=== PATIENT | female | born 1985 | race Caucasian/White ===

== ENCOUNTER → 2023-10-16 14:07 | Outpatient (REF) | payer OTHER, SELFPAY | LOC: HWRAD 14:07 | PROVIDERS: ATTENDING PHYSICIAN Internal Medicine Hematology & Oncology; FAMILY PHYSICIAN Family Medicine | DX: C50.312 Malignant neoplasm of lower-inner quadrant of left female breast (principal); L27.0 Generalized skin eruption due to drugs and medicaments taken internally; K52.1 Toxic gastroenteritis and colitis; R53.83 Other fatigue; C77.3 Secondary and unspecified malignant neoplasm of axilla and upper limb lymph nodes; I48.91 Unspecified atrial fibrillation; G47.00 Insomnia, unspecified | CPT/HCPCS: 77080 ==

== ENCOUNTER → 2024-01-25 07:11 | Outpatient (REF) | payer OTHER, SELFPAY ==
[2024-01-25] VITALS (15 sets, daily range): BP systolic 76–129; BP diastolic 66–97
[2024-01-25 07:46] LABS: INR 1.01; PT 13.8 Sec (11.4-14.6)
[2024-01-25] MEDS: TORADOL 15 MG IV (09:15)
== END ==
LOC: RADI 07:11
PROVIDERS: ATTENDING PHYSICIAN Internal Medicine Hematology & Oncology; REFERRING PHYSICIAN Physician Assistant
DX: C78.7 Secondary malignant neoplasm of liver and intrahepatic bile duct (principal); C50.312 Malignant neoplasm of lower-inner quadrant of left female breast; Z01.812 Encounter for preprocedural laboratory examination; Z01.818 Encounter for other preprocedural examination
CPT/HCPCS: 88307; 36415; 47000; 76942; 85610; 88333; 88334; 88341; 88342; 88360; 99152; 99153

== ENCOUNTER 2024-02-11 18:35 | Emergency (ER) | payer OTHER, SELFPAY ==
[2024-02-11 18:45] VITALS: BP 120/78
[2024-02-11 19:23] LABS: % Basophils 0.6 % (0-2); % Eosinophils 0.4 % (0-6); % Immature Granulocytes 0.4 % (0-0.5); % Monocytes 8.8 % (1.7-9.3); % Neutrophils 76.8 % (42.2-75.2); Absolute Basophils 0.1 10^3/uL (0-0.2); Absolute Lymphocytes 1.4 10^3/uL (1.2-3.4); Absolute Monocytes 0.9 10^3/uL (0.1-0.6); Absolute Neutrophils 8.2 10^3/uL (1.4-6.5); Hemoglobin 10.1 g/dL (12.0-16.0); Mean Corp Hgb Conc. 32.6 g/dL (33.0-37.0); Mean Corpuscular Hgb 28.6 pg (27.0-31.0); Mean Corpuscular Volume 87.8 fL (81.0-99.0); Mean Platelet Volume 10.6 fL (7.4-10.4); Nucleated Red Blood Cells % 0 %; Platelet Count 353 10^3/uL (130-400); Red Blood Cell Count 3.53 10^6/uL (4.20-5.40); Red Cell Dist. Width 12.4 % (11.5-14.5); White Blood Cell Count 10.7 10^3/uL (4.8-10.8)
[2024-02-11 19:26] LABS: Urine Albumin Trace (Neg - Trace); Urine Bilirubin Negative (Negative); Urine Character Clear (Clear); Urine Color Yellow; Urine Glucose Negative (Negative); Urine Ketone 3+ (Negative); Urine Leukocyte Trace (Negative); Urine Nitrite Negative (Negative); Urine Occult Blood Trace (Negative); Urine Urobilinogen Negative (Neg - 1+)
[2024-02-11 19:34] LABS: Lactic Acid 0.8 mmol/L (0.7-2.0)
[2024-02-11 19:35] LABS: ALT (SGPT) 117 U/L (0-35); AST (SGOT) 145 U/L (14-36); Albumin 3.6 g/dl (3.5-5.0); Alkaline Phosphatase 377 U/L (38-126); Blood Urea Nitrogen 13 mg/dl (7-17); Calcium 9.2 mg/dl (8.4-10.2); Carbon Dioxide 25 mmol/L (22-30); Chloride 96 mmol/L (98-107); Glucose 199 mg/dl (70-99); Potassium 3.7 mmol/L (3.5-5.1); Sodium 132 mmol/L (135-145); Total Bilirubin 0.8 mg/dl (0.2-1.3); Total Protein 6.4 g/dl (6.3-8.2); eGFR > 60.00
[2024-02-11 19:36] LABS: Urine Mucus Moderate
[2024-02-11 19:37] LABS: Urine Bacteria Few (Negative); Urine Red Blood Cell 0-2 /HPF (0-2); Urine White Cell 0-2 /HPF (0-5)
[2024-02-11 19:49] LABS: COVID-19 Antigen Negative (Negative)
--- NOTE | 2024-02-12 17:13 | ED.ADDNOTE ---
Addendum entered and electronically signed by Mayte Howell PA-C 02/12/24 19:44:
Patient called back at1 1943 PM
She says she no longer has a fever and she feels well. She saw her oncologist earlier today. At that point the blood culture result was not back yet.
Patient would like to stay home tonight and reach out to her oncologist. She does have access to her oncologist also number and may call her. I did send a [place] text to Dr. Acosta relaying this information. She was encouraged to return to the
ER for at least repeat exam since she was not examined previously, especially if her fever returns. Patient says since it is a holiday she will call her doctor tomorrow or go to [facility] to have her blood cultures redrawn. Perhaps is
contaminant.
Original Note:
ED Addendum
ED Addendum
ED Addendum Note:
Patient left without treatment. She had blood cultures that were positive and she is a liver patient. I called and left a message telling her to return or go to the nearest hospital.
== END 2024-02-11 20:15 ==
LOC: EMR 18:35
PROVIDERS: EMERGENCY PHYSICIAN Student in an Organized Health Care Education/Training Program
DX: R50.9 Fever, unspecified (principal); Z53.21 Procedure and treatment not carried out due to patient leaving prior to being seen by health care provider
CPT/HCPCS: 80053; 81003; 81015; 83605; 85025; 87040; 87147; 87205; 87502; 87811

== ENCOUNTER 2024-02-13 15:51 | Inpatient (IN) | payer OTHER, SELFPAY ==
[2024-02-13] VITALS (9 sets, daily range): BP systolic 95–137; BP diastolic 59–93; BMI 23.6; BMI 23.8
--- NOTE | 2024-02-13 10:30 | ED.GENMED ---
History of Present Illness
General
Chief Complaint: Abnormal Lab Value
Source: patient
Exam Limitations: none
Time Seen by Provider: 02/13/24 09:59
Nursing documentation reviewed up to this point in time: agreed with
History of Present Illness
History of Present Illness:
patient is a 38-year-old female with with metastatic breast cancer call back to the ER positive blood cultures. Patient has had intermittent fevers for the past several days. She denies however any URI symptoms. Today she did have some chest
discomfort and was sent to the ER by her oncologist. She was seen by oncology yesterday and did not have a fever at that time. When she spoke to oncologist today with concern for chest pain in the setting of cancer she was sent also to rule out
PE. Patient denies any shortness of breath. She does complain of pain in her back and spine and pelvis from the metastasis.
Past History
Past History
ED Past Medical History: Other (Kidney stones, hypertension, recently diagnosed breast cancer with chemotherapy)
Social History
Tobacco: Non-smoker
Alcohol: None
Family History
Family History: Negative Diabetes, Hypertension or CAD
Review of Systems
Review of Systems
Allergies reviewed?: Yes
All Other Systems: ROS reviewed and negative except as documented in HPI and ROS
Constitutional: Reports fever
Respiratory: Reports no symptoms; Denies cough or trouble breathing
Cardiac: Reports chest pain
ABD/GI: Reports no symptoms
: Reports no symptoms
Musculoskeletal: Reports no symptoms
Skin: Reports no symptoms
Neurological: Reports no symptoms
Psychiatric: Reports no symptoms
Phy Exam
General Physical Exam
General Presentation: well appearing
General age: appears stated age
General Skin: warm and dry
General Habitus: normal
General Mental: alert
General Hydration: appears well hydrated
Cardiovascular Exam
Cardiovascular Exam: regular rate/rhythm, no murmur and normal peripheral pulses
Pulmonary Exam
Pulmonary Exam: lungs clear and no respiratory distress
Gastrointestinal Exam
Gastrointestinal Exam: non tender and soft
Neurological Exam
Neurological Exam: alert and oriented x3
Musculoskeletal Exam
Musculoskeletal Exam: full ROM
Skin Exam
Skin Exam: normal color and warm/dry
Psychiatric Exam
Psychiatric Exam: normal mood/affect
Sepsis
Sepsis Screening
Sepsis Assessment: Sepsis Ruled Out
Sepsis Screen
Sepsis Screen: Sepsis Ruled Out
Date: 02/13/24
Time: 14:02
Course
Orders/Labs/Results
Orders:
Orders
02/13/24 10:35
Complete Blood Count/With Diff Urgent
Comprehensive Metabolic Panel Urgent
HCG, Serum Qualitative Screen Urgent
Comment: ADD ON
Lactate Level [Lactic Acid] Q4H
Urinalysis Reflex To Culture Urgent
Date Specimen was Collected: 02/13/24
Time Specimen was Collected: 10:33
Blood Culture Urgent
LUCÍA Source: Blood/Venous
Specimen Description:
Date Specimen was Collected: 02/13/24
Time Specimen was Collected: 10:33
02/13/24 10:47
Ibuprofen [Motrin] 600 mg PO NOW STA
Morphine Sulfate 4 mg IV NOW STA
02/13/24 11:02
Blood Culture Routine
LUCÍA Source: Blood/Venous
Specimen Description:
02/13/24 11:07
0.9% Sodium Chloride 1000 ml [Nss] 1,900 ml IV NOW STA
02/13/24 11:15
CT Chest PE Study Urgent
Comment:
Reason For Exam: chest pain fever hx of metastatic cancer
02/13/24 11:26
Vancomycin [Vancocin] 1,500 mg 0.9% Sodium Chloride 500 ml [Nss] 500 ml IV NOW
02/13/24 12:08
Add On- LAB Urgent
Comments:: CT scan requested
Tests Added?: HCG qual
Morphine Sulfate 4 mg IV NOW STA
Abnormal Lab Results
02/13/24
10:35
WBC 13.7 H 10^3/uL
(4.8-10.8)
RBC 3.53 L 10^6/uL
(4.20-5.40)
Hgb 10.2 L g/dL
(12.0-16.0)
Hct 31.4 L %
(37.0-47.0)
MCHC 32.5 L g/dL
(33.0-37.0)
MPV 10.6 H fL
(7.4-10.4)
Abs Immat Gran (auto) 0.1 H 10^3/uL
(0-0.05)
Absolute Neuts (auto) 11.0 H 10^3/uL
(1.4-6.5)
Absolute Monos (auto) 1.4 H 10^3/uL
(0.1-0.6)
Neutrophils % 80.1 H %
(42.2-75.2)
Lymphocytes % 8.9 L %
(20.5-51.1)
Monocytes % 10.0 H %
(1.7-9.3)
Sodium 132 L mmol/L
(135-145)
Chloride 95 L mmol/L
(98-107)
AST 163 H U/L
(14-36)
ALT 104 H U/L
(0-35)
Alkaline Phosphatase 412 H U/L
(38-126)
Urine Ketones 2+ A
(Negative)
02/13/24 10:35
02/13/24 10:35
Vital Signs
Initial and Last Documented VS:
Initial Vital Signs
Temp Pulse Resp BP Pulse Ox
102.6 F H 126 22 137/93 98
02/13/24 09:35 02/13/24 09:35 02/13/24 09:35 02/13/24 09:35 02/13/24 09:35
Last Documented Vital Signs
Temp Pulse Resp BP Pulse Ox
99.9 F 112 14 116/71 99
02/13/24 12:20 02/13/24 12:03 02/13/24 12:03 02/13/24 12:03 02/13/24 12:03
Broom Worker consulted with Physician
Broom Worker consulted with physician?: Yes
Name of Physician Consulted: Toby
MDM/Problems Addressed
MDM/Problems Addressed:
Patient is a 38-year-old female metastatic breast cancer presents back with positive blood culture fever of 102.6. I spoke with her oncologist on-call here Dr. Bradshaw. Patient with no URI symptoms however does complain of pain to the chest .with
pleuritic chest pain and fever will order CT rule out PE.
Blood cultures reviewed from 02/11 gram-positive cocci in clusters.
Patient was medicated for pain with morphine due to chronic back pain pelvis pain from metastasis and feeling better. She was given fluids, temperature has improved. White count is 13.7 hemoglobin 10.2; LFTs and alk phos elevated. UA negative.
CT negative for PE does show metastasis to the lungs thoracic spine.
IV vancomycin was ordered will admit for further evaluation of positive blood cultures/fever
*Radiology
Radiology exam reviewed: radiology read reviewed
*Pulse Oximetry
Patient hypoxic: no
*Critical Care Note
Total Time (30-74mins, 75-104mins- exclusive of procedures): Not Applicable
Data Reviewed
Review of Other/Old Records Reveals: Labs and Radiology Studies
Source: patient
ED Attending Note
-
Portions of this chart may have been created with voice recognition software.� Occasional wrong word or��sound alike� substitutions may have occurred due to the inherent limitations of voice recognition software.
Discharge Plan
Departure
Patient Disposition: Admit
Date of Disposition: 02/13/24
Time of Disposition: 14:00
Admit to: Med/Surg
Admit to doctor: hospitalist
Presentation/result/management discussed w/ accepting MD/DO: Hospitalist
Patient with high blood pressure during this ER visit?: Yes
Condition: Fair
Covid-19: Not Applicable
Discharge Problem:
Fever
Prescriptions:
No Action
nebivolol [Bystolic] 5 mg Tablet
5 mg PO DAILY
acetaminophen [Tylenol] 325 mg Tablet
650 mg PO Q6H PRN (Reason: pain)
ibuprofen 400 mg Tablet
400 mg PO Q6H PRN (Reason: pain)
tamoxifen 20 mg Tablet
20 mg PO DAILY
diazepam 5 mg Tablet
5 mg PO HS PRN (Reason: sleep)
Women's Multivitamin 18 mg iron-400 mcg-500 mg Tablet
1 tab PO DAILY
zolpidem [Ambien CR] 12.5 mg Tablet,Ext Release Multiphase
12.5 mg PO HS
oxycodone 5 mg Tablet
5 mg PO Q4HPRN PRN (Reason: pain)
Referrals:
Gregoria Rodriges DO [Family Provider] -
Interventions
Interventions:
*Risk Screen - Suicide Last Done: 02/13/24 09:35
*General Assessment Last Done: 02/13/24 09:35
*Neglect/Abuse Screening Last Done: 02/13/24 09:35
Discharge Date and Time
Print Language: UKRAINIAN
[2024-02-13 10:46] LABS: % Basophils 0.3 % (0-2); % Eosinophils 0.3 % (0-6); % Immature Granulocytes 0.4 % (0-0.5); % Lymphocytes 8.9 % (20.5-51.1); % Neutrophils 80.1 % (42.2-75.2); Absolute Immature Granulocytes 0.1 10^3/uL (0-0.05); Absolute Lymphocytes 1.2 10^3/uL (1.2-3.4); Absolute Monocytes 1.4 10^3/uL (0.1-0.6); Hematocrit 31.4 % (37.0-47.0); Hemoglobin 10.2 g/dL (12.0-16.0); Mean Corp Hgb Conc. 32.5 g/dL (33.0-37.0); Mean Corpuscular Hgb 28.9 pg (27.0-31.0); Mean Platelet Volume 10.6 fL (7.4-10.4); Nucleated Red Blood Cells % 0 %; Platelet Count 363 10^3/uL (130-400); Red Blood Cell Count 3.53 10^6/uL (4.20-5.40); Red Cell Dist. Width 12.4 % (11.5-14.5); White Blood Cell Count 13.7 10^3/uL (4.8-10.8)
[2024-02-13 10:47] LABS: Urine Albumin Negative (Neg - Trace); Urine Bilirubin Negative (Negative); Urine Character Clear (Clear); Urine Color Yellow; Urine Glucose Negative (Negative); Urine Ketone 2+ (Negative); Urine Leukocyte Negative (Negative); Urine Nitrite Negative (Negative); Urine Occult Blood Negative (Negative); Urine Specific Gravity 1.015 (<1.030); Urine Urobilinogen Negative (Neg - 1+); Urine pH 6.5 (5.0-9.0)
[2024-02-13 10:58] LABS: Lactic Acid 1.2 mmol/L (0.7-2.0)
[2024-02-13 11:01] LABS: ALT (SGPT) 104 U/L (0-35); AST (SGOT) 163 U/L (14-36); Albumin 3.6 g/dl (3.5-5.0); Alkaline Phosphatase 412 U/L (38-126); Blood Urea Nitrogen 12 mg/dl (7-17); Calcium 9.4 mg/dl (8.4-10.2); Carbon Dioxide 24 mmol/L (22-30); Chloride 95 mmol/L (98-107); Estimated Creatinine Clearance 108 ml/min; Glucose 99 mg/dl (70-99); Sodium 132 mmol/L (135-145); Total Bilirubin 0.9 mg/dl (0.2-1.3); Total Protein 6.5 g/dl (6.3-8.2); eGFR > 60.00
[2024-02-13] MEDS: MOTRIN 600 MG PO (11:13)
[2024-02-13] MEDS: MORPHINE SULFATE 4 MG IV ×2 (11:14→12:22)
[2024-02-13] MEDS: NSS 1900 ML IV (11:14)
[2024-02-13] MEDS: VANCOCIN 530 MG IV (12:01)
[2024-02-13 12:31] LABS: HCG, Serum Qualitative Screen Negative
--- NOTE | 2024-02-13 14:32 | HPS.HSE ---
Addendum entered and electronically signed by Jae Manzo MD 02/13/24 16:48:
I saw and examined the patient.
The COMMUNITY ACTION WORKER or PA's note was reviewed and I agree with the note.
Comment:
38-year-old female with history of metastatic breast disease with multiple pulmonary and pleural metastases, severe hepatic metastatic disease, and multifocal lytic osseous metastatic disease now presents back to the hospital for positive blood
cultures. Patient had febrile episodes prompting hospital visitation 2 days ago with blood cultures drawn and left AMA. Was called back for positive blood cultures, coag negative staph. Only 1 set was drawn. Patient does complain of intermittent
fevers, recorded temperature here 102.6, pulse 94, respiratory 23. Labs remarkable for white count of 13.7, sodium 132, elevated LFTs. CT imaging with evidence of multiple pulmonary and pleural metastasis, severe hepatic metastic disease,
multifocal lytic osseous metastatic disease. Has had recent biopsies taken approxi-1 month ago, by IR. Has some tenderness at puncture site although no evidence of acute infection, abscess on CAT scan. Further no swelling or erythema noted on the
skin area where puncture wound was made. No nausea, vomiting, diarrhea.
Patient symptoms may be secondary to tumor fever although diagnosis of exclusion. No external lines placed, last port was approximate 1 year ago. No evidence of abscess formation on CAT scan. Follow-up repeat blood cultures. Empiric antibiotics
with vancomycin, Zosyn. Pain control. IV fluids for now. ID consulted. Follow-up flu, COVID. If all workup is negative, suspect possible tumor fever.
Original Note:
Family Physician
-
Family Physician: Gregoria Rodriges
Chief Complaint
-
Fever, blood culture gram-positive cocci
History of Present Illness
38-year-old female with history of metastatic breast by the ER due to positive blood cultures. She was seen here yesterday secondary to fevers for the past several days ,but left AMA. She reports she has had fevers over the last several days with
some chest discomfort and was referred to the ER by her oncologist. She had CAT scan with no PE but showing multiple pulmonary and pleural metastases severe hepatic metastatic disease and multifocal lytic osseous metastatic disease. HER2 positive
breast CA HER2 NEg/EST positive/PROG negative breast With mets to lungs, liver, multifocal lytic osseous metastatic disease,*Genetic CHK 2 mutation, Hx LEFT breast triple positive CANCER Dx 2020 treated with Taxol, carboplatin, Herceptin,
progestin completed 12 rounds Herceptin/progestin chemo,HX January 2023 left axilla breast CA HER2 + EST + PROG--37 rounds of radiation, 10 rounds of Katsyl with last around December 2022 mastectomy and bilateral breast implants, Chronic
pelvic/sacral/hip and lower thoracic pain secondary to liver mets,kidney stones
Medical History
Past Medical History
Past Medical History: Reports Other
Additional Past Medical History:
DEC 2023 HER2 positive breast CA HER2 NEg/EST positive/PROG negative breast With mets to lungs, liver, multifocal lytic osseous metastatic disease
*Genetic CHK 2 mutation,
Hx LEFT breast TRIPLE + CANCER Dx 2020 treated with Taxol, carboplatin, Herceptin, progestin completed 12 rounds Herceptin/progestin chemo
HX January 2023 LEFT AXILLA breast CA HER2 + EST + PROG--37 rounds of radiation, 10 rounds of Katsyl with last around December 2022 mastectomy a Bilateral breast implants
Chronic pelvic/sacral/hip and lower thoracic pain secondary to liver mets,
HTN
Left breast CA HER2 positive with mets
Renal calculi
Osteoporosis
Anxiety
Past Surgical History: Reports Other
Additional Past Surgical History:
section
Tubal ligation
Subcu port 08/02/2019
Bilateral mastectomy 12/30/2019 secondary to breast CA
Port removal 08/31/2020
Left axillary lymph node excision February 2022
Port insertion June 16, 2022 with removal 01/01/2023
Bilateral oophorectomy April 2022
Liver biopsy 01/25/2024
Social History
Tobacco: Non-smoker
Alcohol: None
Drug: None
Personal: Single
Living: With Family (Parents and her 2 young children)
Employment: Disabled
Family History
Family History: Other (Paternal grandfather prostate CA early 60s, great maternal aunts breast CA, mom HTN, dad HTN)
Allergies / Home Medications
Allergies reflects when Allergies were last updated in [employer].
Home Medications with original date entered in [employer]
Allergy/Medication List:
Allergies
Allergy/AdvReac Type Severity Reaction Status Date / Time
adhesive tape Allergy rash;rednes Verified 02/11/24 18:45
s
pollen extracts Allergy seasonal Verified 02/11/24 18:45
allegeries
Home Medications
oxycodone 5 mg tablet 5 mg PO Q4HPRN PRN moderate pain 01/25/24
dexamethasone 4 mg tablet 4 mg PO BID 02/13/24
ibuprofen 200 mg capsule 400 mg PO Q6HPRN PRN mild pain/fever 02/13/24
letrozole 2.5 mg tablet 2.5 mg PO DAILY 02/13/24
Review of Systems
-
History Source: Patient and Family
A 12 point ROS was completed and negative except as noted: Yes
Constitutional: Reports Fever and Chills
EENT: Denies Sore Throat, Mouth Swelling or Runny Nose
Respiratory: Denies Cough, Hemoptysis or Trouble Breathing
Cardiac: Denies Chest Pain, Diaphoresis, Palpitations or Syncope
Abdomen/GI: Denies Abdominal Pain, Nausea, Vomiting or Diarrhea
: Denies Dysuria, Frequency, Flank Pain, Incontinence or Difficulty Voiding
Musculoskeletal: Denies Joint Pain or Edema
Skin: Denies Itching or Rash
Neurological: Reports Headache (With fevers); Denies Dizzy, Weakness or Numbness
Endocrine: Reports No Symptoms
Hematologic/Lymphatic: Reports No Symptoms
Psych: Reports Calm
Physical Exam
Vital Signs
Vital Signs
Temp Pulse Resp BP Pulse Ox
99.9 F 107 14 116/71 95
02/13/24 12:20 02/13/24 12:45 02/13/24 12:45 02/13/24 12:03 02/13/24 12:45
Physical Exam
General: Comfortable, Conversant, Fever and Chills; No Pain
HEENT: NormoCephalic, Anicteric, Moist mucous membranes, PERRLA, [place] Conjunctivae and No Ptosis
Respiratory: Clear; No Wheezes, Rales or Rhonchi
Cardiac: S1/S2 and Regular Rhythm; No Murmur, Rub, Gallop or Peripheral Edema
Breast: Deferred by me
GI: Soft, Non Tender, Non Distended and Normal Bowel Sounds
Rectal: Deferred by Provider
Genito-urinary: Deferred by me
Musculoskeletal: No Clubbing, No Cyanosis and No Edema
Skin: Warm and Dry; No Rash or Jaundice
Neuro: AO x 3, No Motor Deficits, Nonfocal/grossly intact and No Sensory Deficits; No Slurred Speech, Facial Droop, Tremors or Sedated
Psych: Calm
Laboratory Results
-
02/13/24 10:35
02/13/24 10:35
Laboratory Results
Lactic Acid Cancelled 02/13/24 14:45
Total Bilirubin 0.9 mg/dl (0.2-1.3) 02/13/24 10:35
AST 163 U/L (14-36) H 02/13/24 10:35
ALT 104 U/L (0-35) H 02/13/24 10:35
Alkaline Phosphatase 412 U/L (38-126) H 02/13/24 10:35
Impression/Plan
-
Impression/plan:
Admit to telemetry
#Gram-positive cocci Bacteremia
WBC 13.7 with left shift, 102.6F > 99.9F post Motrin
-IV 1900 mL NSS bolus given in ER( BP soft 116/71)
-IV NSS 125 cc/h
-IV Vancomycin, Iv Zosyn
-IV morphine moderate back pain, Motrin 400 every 6 H as needed for fever/mild back pain
-Repeat blood cultures x 2
-Follow CBC, CMP
-Consult ID
CT scan:no PE
showing multiple pulmonary and pleural metastases
severe hepatic metastatic disease
multifocal lytic osseous metastatic disease
#Hypotension likely secondary to bacteremia
BP 137/93> 99/59 patient's status post 1900 mL IV NSS
-Continue IV NSS 125 cc/h
-Would consider pressors if BP trending downward after above therapies
#HER2 positive breast CA HER2 NEg/EST positive/PROG negative breast With mets to lungs, liver, multifocal lytic osseous metastatic disease
Dx January 09, 2024
Genetic CHK 2 mutation
#Hx LEFT breast triple positive CANCER Dx 2019 treated with Taxol, carboplatin, Herceptin, progestin completed 12 rounds Herceptin/progestin chemo
#January 2023 LEFT AXILLA breast CA HER2 + EST + PROG-
-37 rounds of radiation, 10 rounds of Katsyl with last around December 2022
-Patient follows with Dr. Priscila Geronimo
Procedures due to cancer:
*Bilateral mastectomy with bilateral implants 12/30/2019 Secondary of breast CA
*Bilateral oophorectomy April 2022
*Had port placed July 2019 and removed 01/01/2023
-HOLD LETROZOLE
#Chronic pelvic/sacral/hip and lower thoracic pain secondary to liver mets
-Will continue ibuprofen 400 mg every 6 hours as needed fever
-Continue oxycodone 5 mg p.o. every 4 hours as needed moderate pain
-Continue oxycodone 10 mg p.o. every 4 hours severe pain
#Acute transaminitis likely secondary to severe hepatic metastatic disease
On CT today 02/13/2024 SEVERE HEPATIC METASTATIC DISEASE
AST 163, ALT 104, alk phos 412
-Follow CMP
#Anemia-normocytic
Hgb 10.2 prior 12.6 12/19/2023
-Follow CBC
DVT prophylaxis
Subcu Lovenox
Full code
--- NOTE | 2024-02-13 15:40 | PHA.VAN.IN ---
Assessment
- Assessment
Renal Function: Appears similar to baseline
Maximum Temperature: 102.6 at 02/12/23 0935
Concomitant Antimicrobials: Piperacillin/Tazobactam
AUC Dosing Plan
- Dosing Variables
Dosing Weight (kg): 62.3
Dosing CrCl (ml/min): 108
Vd coefficient (L/kg): 43.61
- Empiric Dosing
Initial / Loading Dose: Vanco loading dose 1500mg at 1201 02/13/24
Maintenance Regimen: Vanco 1000mg Q12H starting 02/14/24 0600
Estimated AUC (mcg*h/mL): 511
Estimated Peak (mcg*h/mL): 33.9
Estimated Trough (mcg/ml): 12
Estimated Half Life (H): 11.95
- Monitoring
No levels ordered at this time: Consider in the next few days
Pharmacokinetics Vancomycin I
- -
Patient Age: 38
Patient Sex: Female
Vancomycin Day #: 1
Indication: Bacteremia
Requesting Provider: Kolby Lord
Pertinent Antimicrobial Allergies:
No Known Antibiotic Allergies
Height / Weight:
Height 5 ft 4 in
Actual Weight 62.3 kg
Pertinent Past Medical History: Metastatic breast
- Vital Signs / Lab Results
Temp Pulse Resp BP Pulse Ox
97.7 F 89 17 99/59 97
02/13/24 15:13 02/13/24 15:13 02/13/24 15:13 02/13/24 15:13 02/13/24 15:13
Lab Results - Hematology
02/13/24
10:35
WBC 13.7 H
Lab Results - Chemistry
02/13/24
10:35
BUN 12
Creatinine 0.6
Estimated Creat Clear 108
Albumin 3.6
02/13/24 02/13/24
10:35 14:45
Lactic Acid 1.2 Cancelled
Lab Results - Urine
02/13/24
10:35
Urine Nitrite (Reflex) Negative
Leukocyte Esterase Rfl Negative
--- NOTE | 2024-02-13 15:41 | CON.ID ---
Consultation
-
Date/Time Consultation Requested: February 13, 20240
Date/Time Consultation Performed: February 13, 20241534
Requesting Provider: AGUEDA Clemens
Performing Provider: Dr. Tanya Badillo
Reason for Consultation: Bacteremia
Chief Complaint / Past History
Chief Complaint
Fever
History of Present Illness
38-year-old female with history of breast cancer initially diagnosed in 2019 status post chemotherapy, bilateral mastectomies,with metastasis to left axilla 2022 status post radiation and tx, recent findings of mets to bone, liver and lung by PET
01/09/24 and liver biopsy 01/24. She is currently on letrozole and dexamethasone. She started having fevers on Thursday 02/08 as high as 102.4. Fever associated with sweats and chills. She presented to the ER on February 10 and 1 set of blood
culture was drawn. Patient left AMA. She received a call today that the blood culture is positive. She therefore returned to ED. she denies headache, sinus congestion, rhinorrhea or sore throat. No cough or shortness of breath. No nausea,
vomiting, abdominal pain, or diarrhea. No dysuria, urinary urgency or flank pain. No wounds. Chronic pelvic and back pain stable. No ill contacts. No recent travel.
Past History
Additional Past Medical History:
HER2+breast cancer with metastasis to lung, liver, bone, dx'd 12/2026
Hx LEFT breast TRIPLE + CANCER Dx 2019 s/p Taxol, carboplatin, Herceptin, progestin completed 12 rounds Herceptin/progestin chemo
HX January 2023 LEFT AXILLA breast CA HER2 + EST + PROG--37 rounds of radiation, 10 rounds of Katsyl with last around December 2022
Anxiety/depression
Osteoporosis
HTN
Bilateral mastectomy (12/30/2019) with breast implants
bilateral oophorectomy 04/2022
Allergy History:
adhesive tape Allergy (Verified 02/11/24 18:45)
rash;redness
pollen extracts Allergy (Verified 02/11/24 18:45)
seasonal allegeries
Medications Reviewed: Yes
Current Antibiotics:
Vancomycin
Zosyn
Social History
Tobacco: Non-Smoker
Alcohol: None
Drug: None
Personal: Single
Living: With Family
Employment: Disabled
Family History
Family History: Not Pertinent
Review of Systems
Review of Systems
General: Fever and Chills; Negative Change in Appetite
HEENT: Negative Sinus Problems or Headache
Cardiovascular: Negative Chest Pain, Dyspnea or Edema
Respiratory: Negative Dyspnea, Cough or Sputum Production
Gasteroenterology: Negative Nausea, Vomiting or Diarrhea
Genital / Urological: Negative Dysuria, Hematuria or Flank Pain
Endocrine: Negative Weakness
Skin / Hair / Nails: Negative Rash
Neurological: Negative Headache or Dizziness
All systems: All other systems were reviewed and were negative
Vital Signs
Temp Pulse Resp BP Pulse Ox
97.7 F 89 17 99/59 97
02/13/24 15:13 02/13/24 15:13 02/13/24 15:13 02/13/24 15:13 02/13/24 15:13
Selected Entries
02/13/24
09:35
Temp 102.6 F H
Physical Exam
Physical Exam
Constitutional: No Acute Distress, Comfortable and Non-toxic
Head: Normocephalic
Eyes: No Conjunctival Hemorrhage and Sclera Anicteric
Pharynx: Benign
Oral: No Thrush and No Ulcers
Cardiovascular: Regular Rate and S1/S2; Negative Murmur
Pulmonary: Clear
Gastrointestinal: Soft, Non Tender, Non Distended and Normal Bowel Sounds
Genito-Urinary: Negative CVA Tenderness
Extremities: Negative Edema, Erythema, Splinter Hemorrhage or [place] Lesions
Musculoskeletal: Negative Joint Swelling, Joint Effusion or Spinal Tenderness
Skin: Negative Rash
Neurological: AO x 3; Negative Meningeal Signs
Lab / Diagnostic Study Results
02/13/24 10:35
02/13/24 10:35
Abs Immat Gran (auto) 0.1 10^3/uL (0-0.05) H 02/13/24 10:35
Absolute Neuts (auto) 11.0 10^3/uL (1.4-6.5) H 02/13/24 10:35
Absolute Lymphs (auto) 1.2 10^3/uL (1.2-3.4) 02/13/24 10:35
Absolute Monos (auto) 1.4 10^3/uL (0.1-0.6) H 02/13/24 10:35
Absolute Basos (auto) 0.0 10^3/uL (0-0.2) 02/13/24 10:35
Immature Gran % 0.4 % (0-0.5) 02/13/24 10:35
Neutrophils % 80.1 % (42.2-75.2) H 02/13/24 10:35
Lymphocytes % 8.9 % (20.5-51.1) L 02/13/24 10:35
Monocytes % 10.0 % (1.7-9.3) H 02/13/24 10:35
Eosinophils % 0.3 % (0-6) 02/13/24 10:35
Basophils % 0.3 % (0-2) 02/13/24 10:35
Lactic Acid Cancelled 02/13/24 14:45
Microbiology Results
Micro:
02/13/24 10:35 Blood Culture - Pending
Blood/Venous
02/13/24 11:02 Blood Culture - Pending
Blood/Venous
02/13/[address]: MULTIPLE PULMONARY and PLEURAL METASTASES with mild interval enlargement of some the metastases since 01/09/2024. SEVERE HEPATIC METASTATIC DISEASE. MULTIFOCAL LYTIC OSSEOUS METASTATIC DISEASE.
Assessment / Plan
# Breast Ca with extensive mets to liver, lungs, bones
# Fever
# Leukocytosis - on steroid
# Coag-neg staph bacteremia 1 of 1 set = contaminant.
- Highly suspect tumor fever especially in setting of hepatic mets.
- No focal signs and symptoms of an infectious process todate.
UA neg, CT chest no pneumonia
- If repeat blood cx's neg, dc Vancomycin.
[2024-02-13 16:34] LABS: COVID-19 Antigen Negative (Negative)
[2024-02-13] MEDS: NSS 1000 IV (16:51)
[2024-02-13] MEDS: ZOSYN 50 IV (16:52)
[2024-02-13] MEDS: DECADRON 4 MG PO (20:58)
[2024-02-13] MEDS: ROXICODONE 5 MG PO (20:58)
[2024-02-14] MEDS: NSS 1000 IV ×2 (01:13→09:54)
[2024-02-14] MEDS: ROXICODONE 10 MG PO ×2 (01:17→11:06)
[2024-02-14 03:13] VITALS: BP 99/20
[2024-02-14] MEDS: VANCOCIN 200 IV (05:15)
[2024-02-14] MEDS: ROXICODONE 5 MG PO (06:43)
[2024-02-14 06:50] LABS: % Basophils 0.3 % (0-2); % Eosinophils 0.1 % (0-6); % Immature Granulocytes 0.5 % (0-0.5); % Lymphocytes 7.5 % (20.5-51.1); % Monocytes 7.9 % (1.7-9.3); % Neutrophils 83.7 % (42.2-75.2); Absolute Immature Granulocytes 0.1 10^3/uL (0-0.05); Absolute Lymphocytes 0.9 10^3/uL (1.2-3.4); Absolute Neutrophils 10.1 10^3/uL (1.4-6.5); Hematocrit 32.9 % (37.0-47.0); Hemoglobin 10.8 g/dL (12.0-16.0); Mean Corp Hgb Conc. 32.8 g/dL (33.0-37.0); Mean Corpuscular Hgb 29.1 pg (27.0-31.0); Mean Corpuscular Volume 88.7 fL (81.0-99.0); Mean Platelet Volume 11.2 fL (7.4-10.4); Nucleated Red Blood Cells % 0 %; Platelet Count 351 10^3/uL (130-400); Red Blood Cell Count 3.71 10^6/uL (4.20-5.40); Red Cell Dist. Width 12.5 % (11.5-14.5)
[2024-02-14 07:13] LABS: ALT (SGPT) 100 U/L (0-35); AST (SGOT) 182 U/L (14-36); Albumin 3.2 g/dl (3.5-5.0); Alkaline Phosphatase 382 U/L (38-126); Blood Urea Nitrogen 9 mg/dl (7-17); Calcium 8.9 mg/dl (8.4-10.2); Carbon Dioxide 22 mmol/L (22-30); Chloride 105 mmol/L (98-107); Estimated Creatinine Clearance 108 ml/min; Glucose 155 mg/dl (70-99); Magnesium 1.8 mg/dl (1.6-2.3); Potassium 4.2 mmol/L (3.5-5.1); Sodium 137 mmol/L (135-145); Total Bilirubin 0.6 mg/dl (0.2-1.3); Total Protein 6.3 g/dl (6.3-8.2); eGFR > 60.00
[2024-02-14 07:38] VITALS: BP 110/72
--- NOTE | 2024-02-14 08:18 | CON.ONC ---
Impression
Impression
a/w positive blood culture
fever diff dx tumor vs infection
leukocytosis diff dx steroids vs infection
metastatic breast cancer with mets to liver, lung, and bones
cancer pain
transaminitis
Plan
Plan
ID following, repeat cultures pending
dexamethasone 4mg BID metastatic bone pain and tumor fever
Foundation one NGS pending
Has 2nd opinion with [facility] breast oncologist tomorrow. If [facility] in agreement, then pt will start Verzenio Sunday if no infections identified
Lupron 02/17 scheduled and OP follow up with Dr. Hahn
Patient History
History of Present Illness
38yo F with metastatic breast cancer presented with positive blood cultures. She had chills and sweats with a fever as high as 102.4 Sunday for which she was evaluated with blood cultures 02/10. She left ER AMA at that time. Her blood culture
results showed coagulase neg staphylococcus, gram stain of anaerobic bottle showed gram positive cocci in clusters. Influenza negative. UA without pyuria. CT chest showed no evidence of PNA, however, did show known pulmonary, pleural, liver and
bone mets. WBC 13.7, Hgb 10.2, MCV 98, platelets 363, normal renal function, normal calcium, Tbili 0.6, AST 182, ALT 100, Alk phos 382.
She is known to Dr. Hahn for management of her metastatic breast cancer. She was initially diagnosed with breast cancer in 2019 for which she underwent chemotherapy. She unfortunately developed metastatic disease in 2022 to the axilla
for which she was treated with XRT. Most recently she developed widespread metastasis on PET in December 2023 and diagnosed via liver biopsy 01/25/2024. She continues on letrozole and plans to start abemaciclib once received from specialty
pharmacy.
Clinically, denies SOB, PACHECO, cough, sinus congestions, sore throat, headache, n/v/d/c or abdominal pain. Denies dysuria. Chronic bone pain in lower back and pelvis unchanged.
Tmax 102.6F, no hypoxia or hypotension
Past-Medical/Surgical History
PMH HTN
PSH lasik, melanocytic nevus, C section, wisdom teeth, tubal ligation, b/l mastectomies and b/l breast implants
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 Denies ETOH, recreational drugs, or recreational drugs
Family breast cancer 2 great aunts, grandfather prostate cancer
Patient Medication
�Medication �Instructions �Recorded �Confirmed �Last Taken �Type
oxycodone 5 mg tablet 5 mg PO Q4HPRN PRN moderate pain 01/25/24 02/13/24 Unknown History
dexamethasone 4 mg tablet 4 mg PO BID inflammation 02/13/24 02/13/24 02/12/24 History
ibuprofen 200 mg capsule 400 mg PO Q6HPRN PRN mild 02/13/24 02/13/24 Unknown History
pain/fever
letrozole 2.5 mg tablet 2.5 mg PO DAILY Hormonal Agent 02/13/24 02/13/24 02/13/24 History
Active Medications
Generic Name Dose Route Start Last Admin
Trade Name Freq PRN Reason Stop Dose Admin
Bisacodyl 10 mg 02/13/24 19:13
Bisacodyl 10 Mg Rectal Suppository RECTAL 03/12/24 19:12
[id number] PRN
constipation
Dexamethasone 4 mg 02/13/24 20:00 02/13/24 20:58
Dexamethasone 4 Mg Tablet PO 03/12/24 19:59 4 mg
BID PACO Administration
Enoxaparin Sodium 40 mg 02/13/24 19:13 02/13/24 20:58
Enoxaparin Sodium 40 Mg/0.4 Ml Syringe SC 03/12/24 19:12 Not Given
QPM PACO
Sodium Chloride 1,000 mls @ 125 mls/hr 02/13/24 15:45 02/14/24 01:13
Nss IV 1,000 mls
.Q8H PACO Administration
Vancomycin HCl 1 gram in 200 mls @ 200 mls/hr 02/14/24 06:00 02/14/24 05:15
Vancocin IV 200 mls
Q12H PACO Administration
Ibuprofen 400 mg 02/13/24 15:23
Ibuprofen 400 Mg Tablet PO 03/12/24 15:22
Q6HPRN PRN
mild pain/t>100.4F
Ondansetron HCl 4 mg 02/13/24 19:13
Ondansetron 4 Mg/2 Ml Vial IV 03/12/24 19:12
Q6HPRN PRN
nausea and vomiting
Oxycodone HCl 5 mg 02/13/24 19:13 02/14/24 06:43
Oxycodone 5 Mg Regular Release Tablet PO 02/27/24 19:12 5 mg
Q4HPRN PRN Administration
mod pain
Oxycodone HCl 10 mg 02/13/24 19:13 02/14/24 01:17
Oxycodone 10 Mg Regular Release Tablet PO 02/27/24 19:12 10 mg
Q4HPRN PRN Administration
severe pain
Polyethylene Glycol 17 grams 02/14/24 08:00
Polyethylene Glycol Powder 17 Grams Packet PO 03/13/24 07:59
DAILY PACO
Senna/Docusate Sodium 1 tablet 02/13/24 19:13
Docusate W/Senna (Elizabeth-Colace) Tablet PO 03/12/24 19:12
BIDPRN PRN
constipation
Sodium Chloride 0 flush 02/13/24 20:00
Sodium Chloride 0.9% (Flush) Syringe IV 03/12/24 19:59
PER PROTOCOL PACO
Review of Systems
-
ROS notable for HPI, otherwise negative
Physical Exam
-
General: No Apparent Distress
HEENT: Moist Mucous Membranes; Negative Jaundice
Cardiology: Normal Sinus Rhythm
Pulmonary: Clear
GI: Soft
Extremities: Pulses Present; Negative Edema
Neurology: Non Focal
Skin: Warm
Psych: Calm
Labs
Lab Results
WBC 12.0 10^3/uL (4.8-10.8) H 02/14/24 06:24
RBC 3.71 10^6/uL (4.20-5.40) L 02/14/24 06:24
Hgb 10.8 g/dL (12.0-16.0) L 02/14/24 06:24
Hct 32.9 % (37.0-47.0) L 02/14/24 06:24
MCV 88.7 fL (81.0-99.0) 02/14/24 06:24
MCH 29.1 pg (27.0-31.0) 02/14/24 06:24
MCHC 32.8 g/dL (33.0-37.0) L 02/14/24 06:24
RDW 12.5 % (11.5-14.5) 02/14/24 06:24
Plt Count 351 10^3/uL (130-400) 02/14/24 06:24
MPV 11.2 fL (7.4-10.4) H 02/14/24 06:24
Abs Immat Gran (auto) 0.1 10^3/uL (0-0.05) H 02/14/24 06:24
Absolute Neuts (auto) 10.1 10^3/uL (1.4-6.5) H 02/14/24 06:24
Absolute Lymphs (auto) 0.9 10^3/uL (1.2-3.4) L 02/14/24 06:24
Absolute Monos (auto) 1.0 10^3/uL (0.1-0.6) H 02/14/24 06:24
Absolute Eos (auto) 0.0 10^3/uL (0-0.7) 02/14/24 06:24
Absolute Basos (auto) 0.0 10^3/uL (0-0.2) 01/02/25 06:24
Immature Gran % 0.5 % (0-0.5) 02/14/24 06:24
Neutrophils % 83.7 % (42.2-75.2) H 02/14/24 06:24
Lymphocytes % 7.5 % (20.5-51.1) L 02/14/24 06:24
Monocytes % 7.9 % (1.7-9.3) 02/14/24 06:24
Eosinophils % 0.1 % (0-6) 02/14/24 06:24
Basophils % 0.3 % (0-2) 02/14/24 06:24
Creatinine 0.5 mg/dL (0.6-1.0) L 02/14/24 06:24
Vital Signs
Vital Signs
Temp Pulse Resp BP Pulse Ox
98.1 F 83 14 110/72 98
02/14/24 07:38 02/14/24 07:38 02/14/24 07:38 02/14/24 07:38 02/14/24 07:38
--- NOTE | 2024-02-14 08:52 | PHA.VAN.FU ---
Vancomycin Assessment / Plan
- Assessment
Renal Function: Stable
WBC's are: Trending Down
In the past 24 hrs, patient has been: Afebrile
- Dosing Plan
Continue: Vanc 1000mg Q12H
- Monitoring Plan
No level(s) ordered at this time: consider levels in next few days
- Follow Up
Pharmacy will continue to follow.
Vancomycin Follow UP
- -
Patient Age: 38
Patient Sex: Female
Vancomycin Day #: 2
Indication: Bacteremia
Requesting Provider: Kolby Lord
Pertinent Antimicrobial Allergies:
no pertinent antibiotic allergies
Height / Weight:
Height 5 ft 4 in
Actual Weight 62.823 kg
Pertinent Past Medical History: Metastatic breast
- Vital Signs / Lab Results
Temp Pulse Resp BP Pulse Ox
98.1 F 83 14 110/72 98
02/14/24 07:38 02/14/24 07:38 02/14/24 07:38 02/14/24 07:38 02/14/24 07:38
Lab Results - Hematology
02/13/24 02/14/24
10:35 06:24
WBC 13.7 H 12.0 H
Lab Results - Chemistry
02/13/24 02/14/24
10:35 06:24
BUN 12 9
Creatinine 0.6 0.5 L
Estimated Creat Clear 108 108
Albumin 3.6 3.2 L
02/13/24 02/13/24
10:35 14:45
Lactic Acid 1.2 Cancelled
Lab Results - Urine
02/13/24
10:35
Urine Nitrite (Reflex) Negative
Leukocyte Esterase Rfl Negative
Microbiology Results
02/13/24 16:07 Influenza Types A & B (CLEMENT) - Final
Nasal Swab Negative for Influenza A & B, NAAT
Negative results must be combined with clinical observations
and patient history.
Nucleic Acid Amplification test (NAAT)performed on the
[employer] platform.
--- NOTE | 2024-02-14 09:10 | W.PN.ID1 ---
Date of Service
Date of Service: February 14, 2024
Today's Communication
If repeat blood cx's x2 (before Vanco) are neg x 24 hrs, dc Vancomycin, dc home on round the clock lower dose NSAIDS with food.
Assessment / Plan
# Breast Ca with extensive mets to liver, lungs, bones
# Tumor Fever
# Leukocytosis - on steroid
# Coag-neg staph bacteremia 1 of 1 set = contaminant.
- Highly suspect tumor fever especially in setting of hepatic mets.
- No focal signs and symptoms of an infectious process.
UA neg, CT chest no pneumonia
- If repeat blood cx's x2 (before Vanco) are neg x 24 hrs, dc Vancomycin, dc home on round the clock lower dose NSAIDS with food.
Chief Complaint
-: Fever
Subjective / Review of Systems
Feels stable. No new sxs.
Vital Signs / Physical Exam
Vital Signs
Vital Signs
Temp Pulse Resp BP Pulse Ox
98.1 F 83 14 110/72 98
02/14/24 07:38 02/14/24 07:38 02/14/24 07:38 02/14/24 07:38 02/14/24 07:38
Physical Exam
Constitutional: No Acute Distress
Oropharyngeal: Benign
Cardiovascular: Regular Rate and S1/S2
Pulmonary: Clear
Gastrointestinal: Non Tender and Normal Bowel Sounds
Genito-Urinary: Negative CVA Tenderness
Extremities: Negative Edema
Musculoskeletal: Negative Spinal Tenderness
Neurological: AO x 3
Objective Data
Lab Data
Lab Results
02/14/24 06:24
02/14/24 06:24
Estimated Creat Clear 108 ml/min 02/14/24 06:24
Lactic Acid Cancelled 02/13/24 14:45
Total Bilirubin 0.6 mg/dl (0.2-1.3) 02/14/24 06:24
AST 182 U/L (14-36) H 02/14/24 06:24
ALT 100 U/L (0-35) H 02/14/24 06:24
Alkaline Phosphatase 382 U/L (38-126) H 02/14/24 06:24
Most recent labs reviewed.
Micro Results:
02/13/24 16:07 Influenza Types A & B (CLEMENT) - Final
Nasal Swab Negative for Influenza A & B, NAAT
Negative results must be combined with clinical observations
and patient history.
Nucleic Acid Amplification test (NAAT)performed on the
[email or web address] platform.
02/13/24 10:35 Blood Culture - Pending
Blood/Venous
02/13/24 11:02 Blood Culture - Pending
Blood/Venous
02/13/[address]: MULTIPLE PULMONARY and PLEURAL METASTASES with mild interval enlargement of some the metastases since 01/09/2024. SEVERE HEPATIC METASTATIC DISEASE. MULTIFOCAL LYTIC OSSEOUS METASTATIC DISEASE.
[2024-02-14] MEDS: MIRALAX 17 GRAMS PO (09:44)
[2024-02-14] MEDS: DECADRON 4 MG PO (09:44)
[2024-02-14 11:09] VITALS: BP 120/80
--- NOTE | 2024-02-14 13:55 | W.PN.HOSP.TC ---
Addendum entered and electronically signed by Jae Manzo MD 02/17/24 16:14:
[id number]
Original Note:
Today's Communication/Plan
-
round the clock lower dose NSAIDS with food.
Assessment / Plan
Assessment / Plan
Physical Exam
General: Comfortable, Conversant, Fever and Chills; No Pain
HEENT: NormoCephalic, Anicteric, Moist mucous membranes, PERRLA, [place] Conjunctivae and No Ptosis
Respiratory: Clear; No Wheezes, Rales or Rhonchi
Cardiac: S1/S2 and Regular Rhythm; No Murmur, Rub, Gallop or Peripheral Edema
Breast: Deferred by me
GI: Soft, Non Tender, Non Distended and Normal Bowel Sounds
Rectal: Deferred by Provider
Genito-urinary: Deferred by me
Musculoskeletal: No Clubbing, No Cyanosis and No Edema
Skin: Warm and Dry; No Rash or Jaundice
Neuro: AO x 3, No Motor Deficits, Nonfocal/grossly intact and No Sensory Deficits; No Slurred Speech, Facial Droop, Tremors or Sedated
Psych: Calm
# Febrile episode
� Most likely suspect tumor fever
� Blood cultures negative for 24 hours, no obvious wrist infection
� ID was consulted
� Gram-positive cocci in 1 blood culture set, is more than likely contaminant
� UA negative, CT chest with no pneumonia
� Follow-up oncology for further treatment
#HER2 positive breast CA HER2 NEg/EST positive/PROG negative breast With mets to lungs, liver, multifocal lytic osseous metastatic disease
Dx January 09, 2024
Genetic CHK 2 mutation
#Hx LEFT breast triple positive CANCER Dx 2019 treated with Taxol, carboplatin, Herceptin, progestin completed 12 rounds Herceptin/progestin chemo
#January 2023 LEFT AXILLA breast CA HER2 + EST + PROG-
--f/u onc
#Chronic pelvic/sacral/hip and lower thoracic pain secondary to liver mets
-Will continue ibuprofen 400 mg every 6 hours as needed fever
-Continue oxycodone 5 mg p.o. every 4 hours as needed moderate pain
-Continue oxycodone 10 mg p.o. every 4 hours severe pain
#Acute transaminitis likely secondary to severe hepatic metastatic disease
On CT today 02/13/2024 SEVERE HEPATIC METASTATIC DISEASE
AST 163, ALT 104, alk phos 412
-Follow CMP
#Anemia-normocytic
Hgb 10.2 prior 12.6 12/19/2023
-Follow CBC
DVT prophylaxis
Subcu Lovenox
Full code
blood cultures negative - can dc
More than 30 minutes spent in discharge including
Final examination of the patient
Summarizing hospital stay
Instructions for continuing care to all relevant caregivers
Preparation of discharge records, prescriptions, and referral forms
Total time spent (24 in minutes):
Anticipated Discharge: Today
Subjective/Interval History
-
Date of Service: February 14, 2024
feels better
Objective Data
-
Labs:
Laboratory Results
02/14/24
06:24
WBC 12.0 H
Hgb 10.8 L
Hct 32.9 L
Plt Count 351
Sodium 137
Potassium 4.2
Chloride 105
Carbon Dioxide 22
BUN 9
Creatinine 0.5 L
Glucose 155 H
Calcium 8.9
Total Bilirubin 0.6
AST 182 H
ALT 100 H
Alkaline Phosphatase 382 H
Vital Signs:
Vital Signs
Temp Pulse Resp BP Pulse Ox
99.1 F 98 16 120/80 98
02/14/24 11:09 02/14/24 11:09 02/14/24 11:09 02/14/24 11:09 02/14/24 11:09
I&O
02/13/24 02/14/24 02/15/24
06:59 06:59 06:59
Intake Total 2940 / 2940
Balance 2940 / 2940
Review of Systems
-
History Source: Patient
All other systems: Not reviewed unless documented
Data Reviewed
-
CT Scan: Report Reviewed by me
Labs: Labs Reviewed by me
--- NOTE | 2024-02-14 14:03 | W.DS.TRANS ---
DC Summary - Cat Tender
-
Discharge Instructions:
Discharge Diagnosis/Procedures Tumor fevers
Blood Work CBC, CMP outpatient with PCP/oncology closely
Instructions:
Stand-Alone Forms:
Changes to Home Medications: Yes
Discharge Medications:
DC Medications w/original date entered in [employer]
oxycodone 5 mg tablet 5 mg PO Q4HPRN PRN moderate pain 01/25/24
dexamethasone 4 mg tablet 4 mg PO BID inflammation 02/13/24
letrozole 2.5 mg tablet 2.5 mg PO DAILY Hormonal Agent 02/13/24
ibuprofen 200 mg capsule 400 mg (2 x 200 mg) PO Q6H 7 days #56 caps 02/14/24
Home Medication Changes
ibuprofen 200 mg capsule 400 mg (2 x 200 mg) PO Q6H 7 days #56 caps 02/14/24
Pending Results: No
--- NOTE | 2024-02-14 14:39 | CM ---
CM reviewed medical records. Plan for discharge to home with continued oncology care. No needs noted at this time.
PLAN: Home no needs.
[2024-02-14 15:03] VITALS: BP 112/74
== END 2024-02-14 15:30 | disposition home or self-care (01) | DRG 864 ==
LOC: 1 ACUTE 15:51
PROVIDERS: Clinical Nurse Specialist Family Health; ADMITTING PHYSICIAN Internal Medicine; CONSULT PHYSICIAN Internal Medicine Infectious Disease; EMERGENCY PHYSICIAN Emergency Medicine; FAMILY PHYSICIAN Family Medicine; OTHER PHYSICIAN Internal Medicine Hematology & Oncology
DX: R50.9 Fever, unspecified (principal); C78.00 Secondary malignant neoplasm of unspecified lung; C78.2 Secondary malignant neoplasm of pleura; C78.7 Secondary malignant neoplasm of liver and intrahepatic bile duct; C79.51 Secondary malignant neoplasm of bone; G89.3 Neoplasm related pain (acute) (chronic); M81.0 Age-related osteoporosis without current pathological fracture; M54.6 Pain in thoracic spine; D64.9 Anemia, unspecified; R74.01 Elevation of levels of liver transaminase levels; F32.A Depression, unspecified; F41.9 Anxiety disorder, unspecified; R79.89 Other specified abnormal findings of blood chemistry; D72.829 Elevated white blood cell count, unspecified; I10 Essential (primary) hypertension; Z87.442 Personal history of urinary calculi; Z92.21 Personal history of antineoplastic chemotherapy; Z17.31 Human epidermal growth factor receptor 2 positive status; Z98.82 Breast implant status; Z85.3 Personal history of malignant neoplasm of breast; Z92.3 Personal history of irradiation; Z90.13 Acquired absence of bilateral breasts and nipples; Z82.49 Family history of ischemic heart disease and other diseases of the circulatory system; Z80.3 Family history of malignant neoplasm of breast; Z80.42 Family history of malignant neoplasm of prostate; Z79.52 Long term (current) use of systemic steroids; Z79.1 Long term (current) use of non-steroidal anti-inflammatories (NSAID); Z79.891 Long term (current) use of opiate analgesic; Z79.890 Hormone replacement therapy; Z11.52 Encounter for screening for COVID-19
CPT/HCPCS: 71275; 80053; 81003; 83605; 83735; 84703; 85025; 87040; 87502; 87811; 96361; 96365; 96366; 96367; 96375; 96376; 99285; Q9967

== ENCOUNTER 2024-02-29 12:37 | Emergency (ER) | payer OTHER, SELFPAY ==
[2024-02-29 12:39] VITALS: BP 129/89
[2024-02-29 13:04] LABS: % Basophils 0.3 % (0-2); % Eosinophils 0.1 % (0-6); % Immature Granulocytes 1.2 % (0-0.5); % Lymphocytes 3.5 % (20.5-51.1); % Monocytes 6.4 % (1.7-9.3); % Neutrophils 88.5 % (42.2-75.2); Absolute Immature Granulocytes 0.2 10^3/uL (0-0.05); Absolute Lymphocytes 0.4 10^3/uL (1.2-3.4); Absolute Monocytes 0.8 10^3/uL (0.1-0.6); Absolute Neutrophils 10.7 10^3/uL (1.4-6.5); Hemoglobin 8.2 g/dL (12.0-16.0); Mean Corp Hgb Conc. 34.2 g/dL (33.0-37.0); Mean Corpuscular Hgb 28.3 pg (27.0-31.0); Mean Corpuscular Volume 82.8 fL (81.0-99.0); Mean Platelet Volume 9.8 fL (7.4-10.4); Nucleated Red Blood Cells % 0 %; Platelet Count 327 10^3/uL (130-400); Red Cell Dist. Width 14.7 % (11.5-14.5); White Blood Cell Count 12.1 10^3/uL (4.8-10.8)
[2024-02-29 13:21] LABS: ALT (SGPT) 111 U/L (0-35); AST (SGOT) 213 U/L (14-36); Albumin 2.8 g/dl (3.5-5.0); Alkaline Phosphatase 465 U/L (38-126); Blood Urea Nitrogen 15 mg/dl (7-17); Calcium 7.9 mg/dl (8.4-10.2); Carbon Dioxide 26 mmol/L (22-30); Chloride 89 mmol/L (98-107); Glucose 106 mg/dl (70-99); Lipase 19 U/L (23-300); Potassium 4.3 mmol/L (3.5-5.1); Sodium 124 mmol/L (135-145); Total Bilirubin 5.2 mg/dl (0.2-1.3); Total Protein 5.6 g/dl (6.3-8.2); eGFR > 60.00
== END 2024-02-29 13:11 ==
LOC: EMR 12:37
PROVIDERS: EMERGENCY PHYSICIAN Student in an Organized Health Care Education/Training Program
DX: Z04.89 Encounter for examination and observation for other specified reasons (principal); C79.81 Secondary malignant neoplasm of breast
CPT/HCPCS: 80053; 83690; 85025

== ENCOUNTER 2024-02-29 13:03 | Inpatient (IN) | payer OTHER, SELFPAY ==
[2024-02-29] VITALS (8 sets, daily range): BP systolic 99–124; BP diastolic 62–86
--- NOTE | 2024-02-29 13:09 | HPS.HSE ---
Family Physician
-
Family Physician: NOT KNOW UNKNOWN - PT DOES
Chief Complaint
-
Jaundice
History of Present Illness
Ms. Mayte Green is a 38 yo woman with hx metastatic breast cancer (dx 2019 s/p chemotherapy, bilateral mastectomies with met to left axilla 2022 s/p radiation; with findings of mets to liver, bone and lung by PET 01/05, admission -02/17 for
likely tumor fever directly admitted after outpatient labs findings show rising bilirubin.�
Patient states she has not been having fevers recently. No recent nausea/vomiting. She has been staying hydrated. + abdominal bloating and pain and is is on long acting opiates. No bowel changes.
No chest pain or shortness of breath.
Medical History
Past Medical History
Past Medical History: Reports Other
Additional Past Medical History:
DEC 2023 HER2 positive breast CA HER2 NEg/EST positive/PROG negative breast With mets to lungs, liver, multifocal lytic osseous metastatic disease
*Genetic CHK 2 mutation,
Hx LEFT breast TRIPLE + CANCER Dx 2019 treated with Taxol, carboplatin, Herceptin, progestin completed 12 rounds Herceptin/progestin chemo
HX January 2023 LEFT AXILLA breast CA HER2 + EST + PROG--37 rounds of radiation, 10 rounds of Katsyl with last around December 2022 mastectomy a Bilateral breast implants
Chronic pelvic/sacral/hip and lower thoracic pain secondary to liver mets,
HTN
Left breast CA HER2 positive with mets
Renal calculi
Osteoporosis
Anxiety
Past Surgical History: Reports Other
Additional Past Surgical History:
section
Tubal ligation
Subcu port 08/02/2019
Bilateral mastectomy 12/30/2019 secondary to breast CA
Port removal 08/31/2020
Left axillary lymph node excision February 2022
Port insertion June 16, 2022 with removal 01/01/2023
Bilateral oophorectomy April 2022
Liver biopsy 01/25/2024
Social History
Tobacco: Non-smoker
Alcohol: None
Drug: None
Personal: Single
Living: With Family (Parents and her 2 young children)
Employment: Disabled
Family History
Family History: Other (Paternal grandfather prostate CA early 60s, great maternal aunts breast CA, mom HTN, dad HTN)
Allergies / Home Medications
Allergies reflects when Allergies were last updated in [employer].
Home Medications with original date entered in [employer]
Allergy/Medication List:
Allergies
Allergy/AdvReac Type Severity Reaction Status Date / Time
adhesive tape Allergy rash;rednes Verified 02/29/24 12:42
s
pollen extracts Allergy seasonal Verified 02/29/24 12:42
allegeries
Home Medications
oxycodone 5 mg tablet 5 mg PO Q4HPRN PRN moderate pain 01/25/24
dexamethasone 4 mg tablet 4 mg PO BID inflammation 02/13/24
letrozole 2.5 mg tablet 2.5 mg PO DAILY Hormonal Agent 02/13/24
ibuprofen 200 mg capsule 400 mg (2 x 200 mg) PO Q6H 7 days #56 caps 02/14/24
awaiting med rec
Review of Systems
-
History Source: Patient
A 12 point ROS was completed and negative except as noted: Yes
Physical Exam
Physical Exam
General: No Apparent Distress
HEENT: PERRLA
Respiratory: Clear; No Wheezes
Cardiac: S1/S2 and Regular Rhythm
GI: Soft and Non Tender
Musculoskeletal: No Edema
Skin: Warm and Dry; No Rash
Neuro: AO x 3
Psych: Calm
Laboratory Results
-
see below
Data Reviewed
-
Diagnostic Radiology: Report Reviewed by me
Lab Data: Labs Reviewed by me
Impression/Plan
-
Ms. Mayte Green is a 38 yo woman with hx metastatic breast cancer (dx 2019 s/p chemotherapy, bilateral mastectomies with met to left axilla 2022 s/p radiation; with findings of mets to liver, bone and lung by PET 01/05, admission -02/17 for
likely tumor fever directly admitted after outpatient labs findings show rising bilirubin to 4.4 Patient with evidence of rapidly growing tumor, per Dr. Geronimo - warrants direct admission for emergent initiation of chemotherapy.
Outpatient labs: Na 128, K+ 4.0, Cl 92, CO2 28, Ca 84, Albumin 3.0, T. Bili 4.4, Alk Phos 486, AST 101, ALT 64
WBC 14.5, Hg 8.7, PLT 411, ANC [id number]
Metastatic Breast Cancer with Mets to Liver, Bone, Lung
Elevated Liver enzymes
-abdominal US urgent
-PICC line to be placed
-appreciate Oncology consult
-per Oncology, chemo regimen is Gemcitabine/Carboplatin
-EKG for QTc montioring
-IV Zofran PRN
Hyponatremia
-patient states she was drinking a lot of water trying to stay hydrated
-urine studies sent
-repeat Na this afternoon
-Nephrology consult
DVT PPx SCD
FULL CODE
76 minutes spent on patient care
--- NOTE | 2024-02-29 14:04 | CON.ONC ---
Addendum entered and electronically signed by Priscila Hahn MD 02/29/24 19:21:
MRI brain, exclude met dz
Consider Cardiology consult for abnormal EKG.
Original Note:
Impression
Impression
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
2) Visceral crisis
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
4) Anemia, suspect from radiation with suggestion of hemolysis based on CMP
5) Cancer-related pain
Plan
Plan
Path report on paper chart.
Begin carboplatin now.
Side effects discussed, informed consent obtained.
Carbo to start today, etoposide tomorrow once drug is in stock.
Doubt she will experience tumor lysis but with aggressive small cell, will follow tumor lysis panel initially.
PICC unable to be placed at bedside. Consult IR for port.
Hemolysis panel.
Anti-emetics
WBC growth factor as outpt day after D/C.
Thank you for consult, will follow along with you.
Patient History
History of Present Illness
Sheryl Green presents for resected HER2 positive breast cancer, recently found to have recurred with metastases to liver and bone. She underwent a liver biopsy which showed estrogen receptor positivity, but unlike her primary, HER2 negativity
and possible neuroendocrine differentation. She is also known to Dr. Pool at [facility] and was referred there for path review and second opinion. Pt developed worsening back pain recently and there was concern for impending cord compromise.
Decision was made to proceed with radiation while awaiting pending path review. Radiation now completed with complete resolution of pain. Upon diagnosis of metastatic disease, palliative hormonal therapy was switched to letrozole and plan was to
start Verzenio but start has been delayed, first for insurance reasons, then due to radiation. Yesterday pt awoke to find new scleral icterus. Labs yesterday confirmed progressively abnormal LFT's, now with Tbili 4.4 vs normal on 1.2. Alkaline
phosphatase is elevated out of proportion to her transaminases. Pt was seen in the office today for urgent visit by Dr. Geronimo to discuss initiating urgent chemotherapy for visceral crisis due to liver metastases. Path review completed today at
[facility] confirming neuroendocrine differentiation, diagnosis is small cell carcinoma of the breast. Since admission, pt underwent U/S of liver showing no intrahepatic ductal dilatation.
Past-Medical/Surgical History
PMHx:
Hypertension
Germline CHEK2 mutation
Breast cancer, ER+, HER2+ at diagnosis, now recurrent as small cell cancer of breast with mets to liver and bone
- TCHP neoadjuvant
- s/p RT to L paraspinal soft tissue mass at T5, completed 02/26/24
PSHx:
LASIK, melanocytic nevus, , wisdom teeth, laparascopic tubal ligation
B/l mastectomy
Prophylactic SUKI/BSO
Social:
with 2 young daughters.
Living with parents.
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
Non-smoker, rare alcohol.
Fam:
Maternal: 2 great aunts with breast CA in their 50's, 1 aunt with breast cancer early 40's.
Paternal: grandfather prostate cancer in mid 50's
Patient Medication
�Medication �Instructions �Recorded �Confirmed �Last Taken �Type
oxycodone 5 mg tablet 5 mg PO Q4HPRN PRN moderate pain 01/25/24 02/13/24 Unknown History
dexamethasone 4 mg tablet 4 mg PO BID inflammation 02/13/24 02/13/24 02/12/24 History
letrozole 2.5 mg tablet 2.5 mg PO DAILY Hormonal Agent 02/13/24 02/13/24 02/13/24 History
ibuprofen 200 mg capsule 400 mg (2 x 200 mg) PO Q6H 7 days 02/14/24 02/13/24 Unknown Rx
#56 caps
Active Medications
Generic Name Dose Route Start Last Admin
Trade Name Dulce Maria PRN Reason Stop Dose Admin
Acetaminophen 650 mg 02/29/24 13:15
Acetaminophen 325 Mg Tablet PO 03/28/24 13:14
Q4HPRN PRN
mild pain/MEJÍA/temp> 100.4F
Fosaprepitant 150 mg/ Sodium 150 mls @ 300 mls/hr 02/29/24 15:00
Chloride IV 02/29/24 15:29
ONCE ONE
Dexamethasone Sodium Phosphate 51 mls @ 204 mls/hr 02/29/24 15:30
10 mg/ Sodium Chloride IV 02/29/24 15:44
ONCE ONE
Palonosetron 0.25 mg/ Device 5 mls @ 300 mls/hr 02/29/24 15:30
IV 02/29/24 15:31
ONCE ONE
Gemcitabine HCl 1,312 mg/ 284.5056 mls @ 569.011 mls/hr 02/29/24 16:00
Sodium Chloride IV 02/29/24 16:29
ONCE ONE
Carboplatin 714 mg/ Sodium 571.4 mls @ 571.4 mls/hr 02/29/24 16:30
Chloride IV 02/29/24 17:29
ONCE ONE
Ondansetron HCl 4 mg 02/29/24 13:55
Ondansetron 4 Mg/2 Ml Vial IV 03/28/24 13:54
Q6HPRN PRN
NAUSEA/VOMITING
Review of Systems
-
History Source: Patient
Constitutional: Reports Fever, Weight Loss and Night Sweats
EENT: Reports No Symptoms
Respiratory: Reports No Symptoms
Cardiac: Reports No Symptoms
GI: Reports Abdominal Pain
Breast: Reports No Symptoms
: Reports No Symptoms
Musculoskeletal: Reports No Symptoms
Skin: Reports No Symptoms
Neuro: Reports No Symptoms
Endocrine: Reports No Symptoms
Hematologic/Lymphatic: Reports No Symptoms
Allergy / Immunology: Reports No Symptoms
Psych: Reports Anxious
Physical Exam
-
Awake, alert
Pale conjunctiva, sclera icteric
Heart tachycardic, regular
Lungs clear
Abd distended with firm liver extending to well below costal margin
Extrem no edema
Neuro grossly non-focal
General: Comfortable and Other (Appears pale and mildly ill)
HEENT: Jaundice and Moist Mucous Membranes
Cardiology: Other (Tachycardic regular)
Pulmonary: Clear
GI: Soft and Hepatomegaly
Musculoskeletal: No Clubbing, No Cyanosis and No Edema
Extremities: No C/C/E
Neurology: Non Focal
Skin: Dry
Hematologic / Lymphatic: No Lymphadenopathy
Psych: Calm and Anxious
Labs
02/28/24: Na 128, calcium 8.4, bilirubin 4.4, alk phos 486, AST 101, ALT 64. WBC 14.5, Hgb 8.7, HCT 26.7, MCV 86.7, RDW 13.0, platelets 411. WBC differential normal.
Comment re: ALT is noted: 'Results slightly increased due to hemolysis'
Vital Signs
Vital Signs
Temp Pulse Resp BP Pulse Ox
98.5 F 100 16 124/86 99
02/29/24 13:19 02/29/24 13:19 02/29/24 13:19 02/29/24 13:19 02/29/24 13:19
--- NOTE | 2024-02-29 15:46 | W.CON.NEPH ---
Consultation
-
Date/Time Consultation Requested: February 28t 3 PM
Date/Time Consultation Performed: February 29, 2024 at 4 PM
Requesting Provider: Dr. Vivar
Performing Provider: Dr. Yared Munoz
Reason for Consultation: hyponatremia
Medical History
-
Chief Complaint: hyponatremia
History of Present Illness:
38 yo woman with hx metastatic breast cancer (dx 2019 s/p chemotherapy, bilateral mastectomies with met to left axilla 2022 s/p radiation; with findings of mets to liver, bone and lung by PET 01/05, admission -02/17 for likely tumor fever directly
admitted after outpatient labs findings show rising bilirubin.�
Patient was also found to have hyponatremia 124. She had been drinking hundred 20 ounces of water to keep yourself hydrated.
She is asymptomatic no nausea vomiting or diarrhea.
When she was here in February sodium was around 131. Prior to that it was within normal limits.
Past Medical History
Metastatic breast cancer
Social History
Tobacco: Non-Smoker
Drug: None
Family History
Family History: Not Pertinent
Allergies / Home Medications
Allergy/AdvReac Type Severity Reaction Status Date / Time
adhesive tape Allergy rash;rednes Verified 02/29/24 12:42
s
pollen extracts Allergy seasonal Verified 02/29/24 12:42
allegeries
�Medication �Instructions �Recorded �Confirmed �Type
dexamethasone 4 mg tablet 4 mg PO BIDPRN PRN pain 02/13/24 02/29/24 History
letrozole 2.5 mg tablet 2.5 mg PO DAILY breast cancer 02/13/24 02/29/24 History
lactulose 10 gram/15 mL oral 15 - 30 ml PO DAILY Constipation 02/29/24 02/29/24 History
solution
morphine 15 mg tablet,extended 15 mg PO Q12H Pain 02/29/24 02/29/24 History
release
oxycodone 10 mg tablet 10 - 20 mg PO Q6HPRN PRN pain 02/29/24 02/29/24 History
Review of Systems
-
All other systems: Negative unless noted
Physical Exam
Vital Signs
Vital Signs
Temp Pulse Resp BP Pulse Ox
98.5 F 103 16 122/71 100
02/29/24 15:24 02/29/24 15:24 02/29/24 15:24 02/29/24 15:24 02/29/24 15:24
Physical Exam
General no acute distress
HEENT no cephalic atraumatic extraocular muscle intact no scleral icterus no JVD neck supple
lungs clear to auscultation bilateral
heart regular S1-S2 positive
abdomen distended
extremities no edema pulses present bilateral
Neurologically nonfocal alert and oriented x 3
Skin no lesions no abrasions no petechiae
Psych normal affect no bizarre behavior
Data Reviewed
-
Labs: Labs Reviewed by me
Assessment/Plan
-
impression:
hyponatremia 124.
Increased liver enzymes and bilirubin.
Breast cancer with metastasis to deliver.
Plan:
she's been drinking 120 ounces of water to help hydrate herself likely the cause of our hyponatremia in the setting of possible SIADH from metastatic cancer.
She's good appetite she had no nausea vomiting and completely asymptomatic from this. No indication for 3% saline.
I asked her to float her sick to 60 ounces for now. this is significantly less than she has been drinking so should be effective.
will repeat labs this afternoon and tomorrow morning.
Her parents were at the bedside discussed with them as well
[2024-02-29] MEDS: ROXICODONE 10 MG PO (17:01)
--- NOTE | 2024-02-29 17:05 | VATNOTE ---
PICC insertion attempted unsuccessfully at this time. Cannulated the basilic vein and was unable to thread the guidewire. This RN was unable to cannulate the brachial vein. 2nd VAT RN after multiple attempts cannulated the brachial vein but was
unable to thread the guidewire. Per PCN, OK to abort PICC insertion attempt as chemotherapy can be run peripherally. Will discuss central line needs with provider.
[2024-02-29] MEDS: EMEND 150 MG IV (17:18)
[2024-02-29 17:52] LABS: Osmolality Urine 300 mOsm/kg (300-900)
[2024-02-29] MEDS: ALOXI 5 MG IV (18:03)
[2024-02-29] MEDS: DECADRON 51 MG IV (18:03)
[2024-02-29 18:06] LABS: Urine Sodium < 5 mmol/L (30-90)
[2024-02-29] MEDS: PARAPLATIN 571.4 MG IV (18:21)
--- NOTE | 2024-02-29 20:11 | PTCARENOTE ---
pt direct admit to floor at 1315 via wheelchair
pt taken down to US for urgent abd/pelvic US
Pharmacist on floor confirmed med list
EKG x2 completed
Urine sample sent to lab
CHEMO pre meds
emend 150mg iv @1718
Aloxi 0.25 mg iv @ 1803
Decadron 10 mg iv @1803
VSS @1815 temp 98.0 hr 104 Resp 16 115/72 99% RA
Chemo Paraplatin 714mg IV @182
15 min VSS 98.3 112/63 hr 115 Resp 16 96% RA
[2024-02-29 20:34] LABS: Reticulocyte Count 3.7 % (0.4-2.8)
[2024-02-29] MEDS: MS CONTIN (EXTENDED RELEASE) 15 MG PO (20:41)
[2024-02-29 20:42] LABS: INR 1.21; PT 15.6 Sec (11.4-14.6)
[2024-02-29 20:43] LABS: APTT 34.9 Sec (23.4-35.0)
[2024-02-29 20:46] LABS: Fibrinogen 861 MG/DL (199-459)
[2024-02-29 20:49] LABS: Iron 46 ug/dl (37-170); LDH 286 U/L (120-246); Magnesium 1.9 mg/dl (1.6-2.3); Sodium 125 mmol/L (135-145); Uric Acid 2.8 mg/dl (2.5-6.2)
[2024-02-29 20:59] LABS: Percent Saturation 19 % (20-50); Total Iron Binding Capacity 231 ug/dl (265-497)
--- NOTE | 2024-02-29 22:19 | PTCARENOTE ---
Paraplatin transfusion completed at 194. VSs - 123/73, HR 100, RR 17, 96% on RA, T 98.3. Pt with no s/s adverse reaction at this time. Labs drawn and sent to lab, repeat EKG completed as ordered. notified of lab results and EKG.
[2024-03-01] VITALS (10 sets, daily range): BP systolic 98–121; BP diastolic 61–82; BMI 23.6
[2024-03-01 07:50] LABS: % Basophils 0.3 % (0-2); % Immature Granulocytes 1.2 % (0-0.5); % Lymphocytes 3.6 % (20.5-51.1); % Neutrophils 88.9 % (42.2-75.2); Absolute Immature Granulocytes 0.1 10^3/uL (0-0.05); Absolute Lymphocytes 0.2 10^3/uL (1.2-3.4); Absolute Monocytes 0.4 10^3/uL (0.1-0.6); Absolute Neutrophils 5.4 10^3/uL (1.4-6.5); Hematocrit 25.3 % (37.0-47.0); Hemoglobin 8.2 g/dL (12.0-16.0); Mean Corp Hgb Conc. 32.4 g/dL (33.0-37.0); Mean Corpuscular Hgb 27.7 pg (27.0-31.0); Mean Corpuscular Volume 85.5 fL (81.0-99.0); Mean Platelet Volume 9.8 fL (7.4-10.4); Nucleated Red Blood Cells % 0 %; Platelet Count 287 10^3/uL (130-400); Red Blood Cell Count 2.96 10^6/uL (4.20-5.40); Red Cell Dist. Width 14.8 % (11.5-14.5)
[2024-03-01] MEDS: MS CONTIN (EXTENDED RELEASE) 15 MG PO ×2 (08:09→19:24)
[2024-03-01] MEDS: DUPHALAC/CHRONULAC 20 GRAMS PO (08:09)
[2024-03-01 08:16] LABS: ALT (SGPT) 111 U/L (0-35); AST (SGOT) 186 U/L (14-36); Albumin 2.7 g/dl (3.5-5.0); Alkaline Phosphatase 451 U/L (38-126); Blood Urea Nitrogen 10 mg/dl (7-17); Calcium 8.1 mg/dl (8.4-10.2); Carbon Dioxide 28 mmol/L (22-30); Chloride 98 mmol/L (98-107); Estimated Creatinine Clearance 108 ml/min; Glucose 125 mg/dl (70-99); Magnesium 2.3 mg/dl (1.6-2.3); Phosphorus 2.3 mg/dl (2.5-4.5); Sodium 134 mmol/L (135-145); Total Protein 5.4 g/dl (6.3-8.2); Uric Acid 2.6 mg/dl (2.5-6.2); eGFR > 60.00
[2024-03-01 08:20] LABS: Potassium 4.3 mmol/L (3.5-5.1)
--- NOTE | 2024-03-01 11:59 | W.PN.ONC ---
Today's Communication / Plan
-
s/p carboplatin on 02/28
etoposide scheduled for 03/01, 03/02, 03/03
daily labs - CBC w/ diff, CMP, mag, phos, uric acid
okay to use peripheral access for now, will need port eventually
GCSF on 03/04 (ideally as outpatient)
Anti-emetics prn
brain MRI ordered for staging, no symptoms
okay to shower
Impression
Impression
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
2) Visceral crisis
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
4) Anemia, suspect from radiation with suggestion of hemolysis based on CMP
5) Cancer-related pain
Plan
Plan
s/p carboplatin on 02/28
etoposide scheduled for 03/01, 03/02, 03/03
daily labs - CBC w/ diff, CMP, mag, phos, uric acid
okay to use peripheral access for now, will need port eventually
GCSF on 03/04 (ideally as outpatient)
Anti-emetics prn
brain MRI ordered for staging, no symptoms
okay to shower
Subjective/Objective
Subjective/Objective
s/p carboplatin yesterday, feeling a bit better this am
appetite is good, wants to take a shower
Vital Signs:
Vital Signs
Temp Pulse Resp BP Pulse Ox
97.7 F 79 19 98/65 98
03/01/24 08:23 03/01/24 08:23 03/01/24 08:23 03/01/24 08:23 03/01/24 08:23
Lab Results:
Laboratory Data
WBC 6.0 10^3/uL (4.8-10.8) 03/01/24 07:23
Hgb 8.2 g/dL (12.0-16.0) L 03/01/24 07:23
Plt Count 287 10^3/uL (130-400) 03/01/24 07:23
PT 15.6 Sec (11.4-14.6) H 02/29/24 20:21
INR 1.21 02/29/24 20:21
APTT 34.9 Sec (23.4-35.0) 02/29/24 20:21
eGFR > 60.00 03/01/24 07:23
Orders
Orders
Orders From Last 24 Hours
03/01/24 10:29
Shower [Okay to Shower] As Directed
03/01/24 10:54
Brain W/O & With Contrast MR [MR Brain W/o & With Contrast] Routine
--- NOTE | 2024-03-01 13:51 | W.PN.HOSP.TC ---
Today's Communication/Plan
-
await brain MRI
port placement Sunday
cont etoposide per onc
apprec input
Assessment / Plan
Assessment / Plan
pt is a 38 year old female
Metastatic Breast Cancer with Mets to Liver, Bone, Lung--abnormal labs with elevated T-bili--no signs of ductal compression/blockage by US--? hemolysis--unable to place PICC--will need port for chemo--apprec onc--getting MRI brain for staging--per
Oncology, chemo regimen is Gemcitabine/Carboplatin-EKG for QTc monitoring--IV Zofran PRN
Hyponatremia--due to polydipsia to stay hydrated--cont IVF--apprec renal--some component of SIADH also possible
anemia of chronic disease--cannot rule out hemolysis at this time--await haptoglobin--retic count elevated--iron studies show chronic disease
DVT PPx SCD
FULL CODE
Anticipated Discharge: > 48 hours
Subjective/Interval History
-
Date of Service: March 01, [address] to MRI
Objective Data
-
Labs:
Laboratory Results
03/01/24
07:23
WBC 6.0
Hgb 8.2 L
Hct 25.3 L
Plt Count 287
Sodium 134 L D
Potassium 4.3
Chloride 98
Carbon Dioxide 28
BUN 10
Creatinine 0.4 L
Glucose 125 H
Calcium 8.1 L
Total Bilirubin 4.0 H
AST 186 H
ALT 111 H
Alkaline Phosphatase 451 H
Vital Signs:
max temp for 24 hours
03/01/24
03:44
Temp 97.8 F
Vital Signs
Temp Pulse Resp BP Pulse Ox
97.7 F 83 19 107/70 97
03/01/24 12:35 03/01/24 12:35 03/01/24 12:35 03/01/24 12:35 03/01/24 12:35
I&O
02/29/24 03/01/24 03/02/24
06:59 06:59 06:59
Intake Total 1200 / 1200
Balance 1200 / 1200
Review of Systems
-
All other systems: Reviewed and negative
Physical Exam
-
General: Well Developed, Well Nourished and Appears Chronically Ill
HEENT: Normocephalic and Atraumatic; Negative Oxygen
Respiratory: Clear to Auscultation; Negative Wheezes or Rhonchi
Cardiac: Regular Rhythm and S1/S2; Negative Murmur
GI: Soft, Nontender, Nondistended and Normal Bowel Sounds
Musculoskeletal: No Clubbing, No Cyanosis and No Edema
Neuro: Awake and Alert
Psych: Calm
--- NOTE | 2024-03-01 13:52 | W.PN.NEPH.PH ---
Today's Communication / Plan
-
continue fluid restriction. I will sign off
Assessment/Plan
-
impression:
hyponatremia 124.
Increased liver enzymes and bilirubin.
Breast cancer with metastasis to deliver.
Plan:
she's been drinking 120 ounces of water to help hydrate herself likely the cause of our hyponatremia in the setting of possible SIADH from metastatic cancer.
She's good appetite she had no nausea vomiting and completely asymptomatic from this. No indication for 3% saline.
I asked her to float her sick to 60 ounces for now. this is significantly less than she has been drinking so should be effective.
.
Her parents were at the bedside discussed with them as well
Serum sodium improved to 134 with fluid restriction urine sodium was less than five consistent with polydipsia
I will sign off please call if needed and I asked her to continue with the fluidrestriction
-
-
Date of Service: March 01, 2024
CC / HPI / ROS
-
feeling better today no chest pain or shortness of breath.
Labs
-
Labs:
WBC 6.0 10^3/uL (4.8-10.8) 03/01/24 07:23
RBC 2.96 10^6/uL (4.20-5.40) L 03/01/24 07:23
Hgb 8.2 g/dL (12.0-16.0) L 03/01/24 07:23
Hct 25.3 % (37.0-47.0) L 03/01/24 07:23
Plt Count 287 10^3/uL (130-400) 03/01/24 07:23
Sodium 134 mmol/L (135-145) L D 03/01/24 07:23
Potassium 4.3 mmol/L (3.5-5.1) 03/01/24 07:23
Chloride 98 mmol/L (98-107) 03/01/24 07:23
Carbon Dioxide 28 mmol/L (22-30) 03/01/24 07:23
BUN 10 mg/dl (7-17) 03/01/24 07:23
Creatinine 0.4 mg/dL (0.6-1.0) L 03/01/24 07:23
eGFR > 60.00 03/01/24 07:23
Glucose 125 mg/dl (70-99) H 03/01/24 07:23
Calcium 8.1 mg/dl (8.4-10.2) L 03/01/24 07:23
Phosphorus 2.3 mg/dl (2.5-4.5) L 03/01/24 07:23
Albumin 2.7 g/dl (3.5-5.0) L 03/01/24 07:23
Physical Exam
-
Vital Signs:
Vital Signs
Temp Pulse Resp BP Pulse Ox
97.7 F 83 19 107/70 97
03/01/24 12:35 03/01/24 12:35 03/01/24 12:35 03/01/24 12:35 03/01/24 12:35
Respiratory:: Bilateral: CTA
Lung Excursion:: Normal
Abdomen:: Tender
Bowel Sounds:: Normal
Extremity Edema:: None: Bilateral:
[2024-03-01] MEDS: ROXICODONE 10 MG PO (15:07)
[2024-03-01] MEDS: [UNRECOGNIZED DRUG - OTHER] 508.2 MG IV (16:57)
[2024-03-01] MEDS: NEUTRA-PHOS POWDER PACKET 250 MG PO ×2 (17:06→19:24)
--- NOTE | 2024-03-01 17:20 | PTCARENOTE ---
1715 Pt started on her chemotherapy Etoposide per ordered. VSS pre treatment. PT AAOX3. All information and literature provided pre treatment. Pt verbalizes understanding.
[2024-03-01] MEDS: COMPAZINE 10 MG IV (18:39)
[2024-03-02] MEDS: ROXICODONE 10 MG PO ×2 (02:49→11:06)
[2024-03-02 03:53] VITALS: BP 119/69; BMI 23.5
[2024-03-02 06:53] LABS: Hematocrit 22.3 % (37.0-47.0); Hemoglobin 7.6 g/dL (12.0-16.0); Mean Corp Hgb Conc. 34.1 g/dL (33.0-37.0); Mean Corpuscular Hgb 29.2 pg (27.0-31.0); Mean Corpuscular Volume 85.8 fL (81.0-99.0); Mean Platelet Volume 10.1 fL (7.4-10.4); Platelet Count 261 10^3/uL (130-400); Red Cell Dist. Width 15.8 % (11.5-14.5); White Blood Cell Count 12.1 10^3/uL (4.8-10.8)
[2024-03-02 07:24] LABS: ALT (SGPT) 89 U/L (0-35); AST (SGOT) 178 U/L (14-36); Albumin 2.4 g/dl (3.5-5.0); Alkaline Phosphatase 424 U/L (38-126); Blood Urea Nitrogen 17 mg/dl (7-17); Calcium 7.8 mg/dl (8.4-10.2); Carbon Dioxide 28 mmol/L (22-30); Chloride 100 mmol/L (98-107); Estimated Creatinine Clearance 108 ml/min; Glucose 86 mg/dl (70-99); Magnesium 2.2 mg/dl (1.6-2.3); Phosphorus 3.3 mg/dl (2.5-4.5); Potassium 4.9 mmol/L (3.5-5.1); Sodium 133 mmol/L (135-145); Total Bilirubin 2.3 mg/dl (0.2-1.3); Total Protein 4.8 g/dl (6.3-8.2); Uric Acid 4.7 mg/dl (2.5-6.2); eGFR > 60.00
[2024-03-02] MEDS: MS CONTIN (EXTENDED RELEASE) 15 MG PO (07:37)
[2024-03-02] MEDS: DUPHALAC/CHRONULAC 20 GRAMS PO (07:37)
[2024-03-02 08:03] VITALS: BP 104/66
[2024-03-02] MEDS: NEUTRA-PHOS POWDER PACKET 250 MG PO ×2 (09:11→12:51)
--- NOTE | 2024-03-02 09:51 | W.PN.ONC ---
Today's Communication / Plan
-
bilirubin trending down already
daily labs - CBC w/ diff, CMP, mag, phos, uric acid
MRI brain w/o PRINTING SUPERVISOR mets (bone mets, as previously noted)
s/p carboplatin on 02/28
etoposide scheduled for 03/01, 03/02, 03/03
okay to use peripheral access for now - okay to use left arm, will need port eventually (will be arranged as outpatient)
GCSF 24-28hrs after last chemo dose (ideally as outpatient, our office to schedule)
Anti-emetics prn. Rx sent for Zofran to use prn after discharge
okay to shower
Impression
Impression
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
2) Visceral crisis
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
4) Anemia, suspect from radiation with suggestion of hemolysis based on CMP
5) Cancer-related pain
Plan
Plan
bilirubin trending down already
daily labs - CBC w/ diff, CMP, mag, phos, uric acid
MRI brain w/o PRINTING SUPERVISOR mets (bone mets, as previously noted)
s/p carboplatin on 02/28
etoposide scheduled for 03/01, 03/02, 03/03
okay to use peripheral access for now - okay to use left arm, will need port eventually (will be arranged as outpatient)
GCSF 24-28hrs after last chemo dose (ideally as outpatient, our office to schedule)
Anti-emetics prn. Rx sent for Zofran to use prn after discharge
okay to shower
Subjective/Objective
Subjective/Objective
c/o discomfort at right wrist IV site, no arm swelling
no significant nausea, appetite is good. Some RUQ fullness
Vital Signs:
Vital Signs
Temp Pulse Resp BP Pulse Ox
98 F 70 20 104/66 100
03/02/24 08:03 03/02/24 08:03 03/02/24 08:03 03/02/24 08:03 03/02/24 08:03
Lab Results:
Laboratory Data
WBC 12.1 10^3/uL (4.8-10.8) H 03/02/24 05:48
Hgb 7.6 g/dL (12.0-16.0) L 03/02/24 05:48
Plt Count 261 10^3/uL (130-400) 03/02/24 05:48
PT 15.6 Sec (11.4-14.6) H 02/29/24 20:21
INR 1.21 02/29/24 20:21
APTT 34.9 Sec (23.4-35.0) 02/29/24 20:21
eGFR > 60.00 03/02/24 05:48
Orders
Orders
Orders From Last 24 Hours
03/01/24 10:29
Shower [Okay to Shower] As Directed
03/01/24 10:54
Brain W/O & With Contrast MR [MR Brain W/o & With Contrast] Routine
03/01/24 18:11
Prochlorperazine [Compazine] 10 mg IV Q6HPRN PRN
03/02/24 08:33
Prochlorperazine [Compazine] 10 mg PO Q6HPRN PRN
[2024-03-02 11:03] VITALS: BP 129/83
--- NOTE | 2024-03-02 12:05 | W.PN.HOSP.TC ---
Today's Communication/Plan
-
port/PICC/IV access major issue
Assessment / Plan
Assessment / Plan
pt is a 38 year old female
Metastatic Breast Cancer with Mets to Liver, Bone, Lung--abnormal labs with elevated T-bili--no signs of ductal compression/blockage by US--? hemolysis--unable to place PICC--will need port for chemo--apprec onc--getting MRI brain for staging--per
Oncology, chemo regimen is Gemcitabine/Carboplatin-EKG for QTc monitoring--IV Zofran PRN--getting etoposide now but IV access an issue
Hyponatremia--due to polydipsia to stay hydrated--cont IVF--apprec renal--some component of SIADH also possible
anemia of chronic disease--cannot rule out hemolysis at this time--await haptoglobin--retic count elevated--iron studies show chronic disease--HGB 7.6--consider blood transfusion but will defer to onc
DVT PPx SCD
FULL CODE
Anticipated Discharge: > 48 hours
Subjective/Interval History
-
Date of Service: March 02, 2024
pt having significant trouble getting IV access/PICC line etc
told me will NOT do port with IR
Objective Data
-
Labs:
Laboratory Results
03/02/24
05:48
WBC 12.1 H
Hgb 7.6 L
Hct 22.3 L
Plt Count 261
Sodium 133 L
Potassium 4.9
Chloride 100
Carbon Dioxide 28
BUN 17
Creatinine 0.6
Glucose 86
Calcium 7.8 L
Total Bilirubin 2.3 H
AST 178 H
ALT 89 H
Alkaline Phosphatase 424 H
Vital Signs:
max temp for 24 hours
03/02/24
03:53
Temp 98.0 F
Vital Signs
Temp Pulse Resp BP Pulse Ox
98.0 F 86 18 129/83 100
03/02/24 11:03 03/02/24 11:03 03/02/24 11:03 03/02/24 11:03 03/02/24 11:03
I&O
03/01/24 03/02/24 03/03/24
06:59 06:59 06:59
Intake Total 1200 / 1200 1640 / 1640
Balance 1200 / 1200 1640 / 1640
Review of Systems
-
All other systems: Reviewed and negative
Physical Exam
-
General: Well Developed, Well Nourished and No Apparent Distress
HEENT: Normocephalic and Atraumatic
Respiratory: Clear to Auscultation; Negative Wheezes or Rhonchi
Cardiac: Regular Rhythm and S1/S2; Negative Murmur
GI: Soft, Nontender, Nondistended and Normal Bowel Sounds
Musculoskeletal: No Clubbing, No Cyanosis and No Edema
--- NOTE | 2024-03-02 13:13 | W.PN.UPDATE ---
Update Note
Progress Note Update
Spoke to patient over the phone after rounds.
IV access continues to be an issue. Further etoposide through peripheral veins is not ideal, and patient is reluctant to continue.
She's reached out to Dr. Chopra, who's working to arrange outpatient port for Sunday, 03/04.
Will reschedule final two doses of etoposide for 03/05 and 03/06 (as outpatient). OUr office will be in touch with her tomorrow to confirm plans.
Okay for discharge.
--- NOTE | 2024-03-02 13:56 | W.DCSUMMARY ---
Discharge Summary
Discharge Data
Date of Admission: 02/29/24
Date of Discharge: 03/02/24
-
Pending Results: No
Hospital Course
Primary care physician : Gregoria Rodriges
Principal Discharge diagnosis : Abnormal labs with elevated bilirubin, hyponatremia
Chronic Discharge diagnosis : Metastatic breast cancer with mets to liver/bone/lung, anemia of chronic disease
Hospital Course : Patient was a 38-year-old female with a history of metastatic breast cancer originally diagnosed in 2019 status postchemotherapy, bilateral mastectomies with metastatic disease to the left axilla in 2022 s/p radiation along with
findings of metastatic disease to liver bone and lung by PET scan in December 2023; who was admitted from February 12 through February 18, 2024 for tumor fever. She was sent from oncology for direct admission due to rising bilirubin and initiation of
chemotherapy.
Problem #1: Abnormal labs with elevated bilirubin. Patient was admitted to start etoposide therapy. Unfortunately, patient has had issues with IV access with multiple attempts at a PICC line/midline which were unsuccessful. Patient has called her
surgeon (Cristin Chopra) who reportedly is trying to get her on the OR schedule for Sunday. Patient relates that she cannot/will not do port placement by interventional radiology. Stating that she needs general anesthesia to do so. Because of
this, further chemotherapy has been deferred until her port is placed. She has been cleared for discharge by oncology.
Problem #2: Hyponatremia. Patient was drinking significant amounts of water (120 ounces ) to stay hydrated. Sodium on admission was 124. She was given IV fluids with improvement to 134. She has been placed on a 60 ounce per day fluid restriction
which is much less than what she had been taking as an outpatient.
Problem #3: All other medical issues. These include Metastatic breast cancer with mets to liver/bone/lung, anemia of chronic disease. His medical issues were stable during her hospitalization. Medications were continued as able.
Patient is stable for discharge home at this time. If there are any questions regarding this dictation or hospital stay, please do not hesitate to call. Our office number is [phone].
Important imaging findings :
BRAIN MRI done for staging IMPRESSION:
There are no intracranial abnormalities.
There are greater than 10 calvarial/skull lesions measuring up to 13 mm consistent with osseous metastasis which, if clinically indicated, could be further evaluated with bone scan.
Discharge Plan
-
Patient Disposition: Home (Routine Discharge)
Discharge Diagnosis/Procedures: Metastatic breast cancer to liver/bone/lung, hyponatremia, anemia of chronic disease
Condition: Good
Diet: As tolerated and Regular
Activity: As tolerated
Driving Restrictions: As prior to admission
Bathing Restrictions: None
Referrals:
UNKNOWN - PT DOES,NOT KNOW [Family Provider] - in less than 1 week
Prescriptions:
New
acetaminophen 325 mg Tablet
650 mg PO Q4HPRN PRN (Reason: mild pain/MEJÍA/temp> 100.4F) Qty: 0 0RF
Continued
morphine 15 mg tablet extended release
15 mg PO Q12H
lactulose 10 gram/15 mL solution
15 - 30 ml PO DAILY
oxycodone 10 mg tablet
10 - 20 mg PO Q6HPRN PRN (Reason: pain)
Held
dexamethasone 4 mg Tablet
4 mg PO BIDPRN PRN (Reason: pain)
Hold Instructions: continue as prior to the hospital stay
Rx Instructions:
patient states that she has not taken recently
letrozole 2.5 mg tablet
2.5 mg PO DAILY
Hold Instructions: discuss restarting with onc
Discharge Orders:
Discharge Patient (As Directed); Ordered 03/02/24
Ordered By: Kalyani Cox
Discharge Date and Time
Print Language: BULGARIAN
[2024-03-03 08:06] LABS: Haptoglobin 311 mg/dL (30-200)
== END 2024-03-02 14:52 | disposition home or self-care (01) | DRG 644 ==
LOC: 3 WEST ACU 13:03
PROVIDERS: ADMITTING PHYSICIAN Student in an Organized Health Care Education/Training Program; ATTENDING PHYSICIAN Internal Medicine; CONSULT PHYSICIAN Internal Medicine Hematology & Oncology; CONSULT PHYSICIAN Internal Medicine Nephrology
DX: E22.2 Syndrome of inappropriate secretion of antidiuretic hormone (principal); C78.00 Secondary malignant neoplasm of unspecified lung; R17 Unspecified jaundice; C78.7 Secondary malignant neoplasm of liver and intrahepatic bile duct; C79.51 Secondary malignant neoplasm of bone; C50.912 Malignant neoplasm of unspecified site of left female breast; R14.0 Abdominal distension (gaseous); R74.8 Abnormal levels of other serum enzymes; M81.0 Age-related osteoporosis without current pathological fracture; F41.9 Anxiety disorder, unspecified; I10 Essential (primary) hypertension; R63.1 Polydipsia; D63.8 Anemia in other chronic diseases classified elsewhere; G89.3 Neoplasm related pain (acute) (chronic); Z17.31 Human epidermal growth factor receptor 2 positive status; Z87.442 Personal history of urinary calculi; Z82.49 Family history of ischemic heart disease and other diseases of the circulatory system; Z92.21 Personal history of antineoplastic chemotherapy; Z92.3 Personal history of irradiation; Z90.13 Acquired absence of bilateral breasts and nipples; Z80.3 Family history of malignant neoplasm of breast; Z80.42 Family history of malignant neoplasm of prostate; Z79.811 Long term (current) use of aromatase inhibitors; Z98.82 Breast implant status; Z91.048 Other nonmedicinal substance allergy status; Z17.0 Estrogen receptor positive status [ER+]
CPT/HCPCS: 70553; 71045; 76700; 80053; 82248; 82728; 83010; 83540; 83550; 83615; 83735; 83935; 84100; 84295; 84300; 84550; 85025; 85027; 85045; 85384; 85610; 85730; 93005; J1453; J2469; J9045; J9181

== ENCOUNTER 2024-03-04 06:15 | Day surgery (SDC) | payer OTHER, SELFPAY ==
--- NOTE | 2024-03-03 16:55 | PTCARENOTE ---
Abn CXR 02/28, Hgb 7.6 collected 03/02, reviewed by Dr Walter, no additional intervention required.
[2024-03-04] VITALS (10 sets, daily range): BP systolic 86–120; BP diastolic 59–82; BMI 23.6
[2024-03-04] MEDS: NSS 1000 IV (13:00)
[2024-03-04] MEDS: NORMOSOL-R/PLASMALYTE-A 1000 IV (13:47)
--- NOTE | 2024-03-04 15:48 | W.IMMPOSTOP ---
Surgical Immed Post Op Note
-
Primary Surgeon: Keysha
Assisting Surgeon: None
Pre-op Diagnosis: Breast ca
Post-op Diagnosis: Same
Procedure Performed: Right port insertion
Anesthesia Type: TIVA
Specimen / Cultures: None
Estimated Blood Loss: 4cc
Complications: None
Operative Findings: None
--- NOTE | 2024-03-04 15:50 | OR.RPT ---
Operative Report
Operative Report
Pre-Op DX: Stage 4 breast cancer
Post-Op DX: Stage 4 breast cancer
Surgeon: Keysha
Procedure: Insertion right portacath
The patient is a 38-year-old female with stage IV breast carcinoma who presents for right Port-A-Cath insertion for the administration of chemotherapy.
The patient presented to the same-day surgical unit where she was identified and verified site and procedure. She was prepped and DVT and antibiotic prophylaxis were provided. She was taken to the operating room and in the supine position with
shoulder roll in place intravenous sedation was delivered. Appropriate timeout was performed and her right chest and neck were prepped and draped in usual sterile fashion. She was placed in Trendelenburg position and all tissues were anesthetized
with 1% lidocaine plain.
Right subclavian vein was entered percutaneously in the first attempt. Guidewire was advanced under fluoroscopic guidance into the superior vena cava. The guidewire was securely clamped to the drapes. Inferior to the exit site of the wire port
pocket was fashioned. The patient had a previous port in this position and that same incision was used. Catheter was securely attached to low-profile single-lumen port flushed with heparinized saline. It was passed to the exit site of the
guidewire and under fluoroscopic guidance it was cut to length of 18 cm.
The vascular tract was dilated. Dilator and wire were removed and catheter was passed through the tear-away sheath which was removed. Good position of the tip in the superior vena cava was noted and the port aspirated and flushed well. Patient
was taken out of Trendelenburg position. Marcaine 0.5% plain was instilled into all tissues and the wound was closed using simple interrupted 3-0 plain on subcutaneous tissue and a running subcuticular 4 Monocryl on skin. Surgical glue and sterile
compressive dressings were applied. All sponge needle and instrument counts were correct the patient was transferred to the recovery room where a stat portable chest x-ray will be obtained.
([id number])
== END 2024-03-04 16:25 | disposition home or self-care (01) ==
LOC: SDS 06:15
PROVIDERS: ATTENDING PHYSICIAN Surgery
DX: C50.412 Malignant neoplasm of upper-outer quadrant of left female breast (principal)
CPT/HCPCS: 36571; 71045; 76000; C1788

== ENCOUNTER 2024-03-07 09:40 | Outpatient (RCR) | payer OTHER, SELFPAY ==
[2024-03-06 13:51] LABS: % Basophils 0.3 % (0-2); % Eosinophils 0.6 % (0-6); % Lymphocytes 15.7 % (20.5-51.1); % Monocytes 0.9 % (1.7-9.3); % Neutrophils 76.5 % (42.2-75.2); Absolute Immature Granulocytes 0.2 10^3/uL (0-0.05); Absolute Lymphocytes 0.5 10^3/uL (1.2-3.4); Absolute Neutrophils 2.5 10^3/uL (1.4-6.5); Hematocrit 21.4 % (37.0-47.0); Mean Corp Hgb Conc. 32.2 g/dL (33.0-37.0); Mean Corpuscular Hgb 28.3 pg (27.0-31.0); Mean Corpuscular Volume 87.7 fL (81.0-99.0); Mean Platelet Volume 9.3 fL (7.4-10.4); Platelet Count 176 10^3/uL (130-400); Red Blood Cell Count 2.44 10^6/uL (4.20-5.40); Red Cell Dist. Width 16.2 % (11.5-14.5); White Blood Cell Count 3.3 10^3/uL (4.8-10.8)
[2024-03-06 13:54] LABS: Hemoglobin 6.9 g/dL (12.0-16.0)
[2024-03-07 10:36] VITALS: BP 108/77
[2024-03-07 10:54] VITALS: BP 112/71
[2024-03-07 12:35] VITALS: BP 123/80
[2024-03-07 12:51] VITALS: BP 123/80
[2024-03-07 13:08] VITALS: BP 114/71
[2024-03-07 15:18] VITALS: BP 114/73
[2024-03-12 10:02] LABS: % Basophils 2.7 % (0-2); % Eosinophils 5.4 % (0-6); % Lymphocytes 64.9 % (20.5-51.1); % Monocytes 10.8 % (1.7-9.3); % Neutrophils 16.2 % (42.2-75.2); Absolute Lymphocytes 0.2 10^3/uL (1.2-3.4); Hematocrit 29.9 % (37.0-47.0); Mean Corp Hgb Conc. 33.8 g/dL (33.0-37.0); Mean Corpuscular Hgb 29.1 pg (27.0-31.0); Mean Corpuscular Volume 86.2 fL (81.0-99.0); Platelet Count 32 10^3/uL (130-400); Red Blood Cell Count 3.47 10^6/uL (4.20-5.40); Red Cell Dist. Width 15.6 % (11.5-14.5)
[2024-03-12 10:03] LABS: Hemoglobin 10.1 g/dL (12.0-16.0)
[2024-03-12 10:04] LABS: White Blood Cell Count 0.4 10^3/uL (4.8-10.8)
[2024-03-12 10:05] LABS: Absolute Neutrophils 0.1 10^3/uL (1.4-6.5)
[2024-03-12 11:19] LABS: ALT (SGPT) 25 U/L (0-35); AST (SGOT) 25 U/L (14-36); Albumin 3.2 g/dl (3.5-5.0); Alkaline Phosphatase 446 U/L (38-126); Blood Urea Nitrogen 14 mg/dl (7-17); Calcium 8.5 mg/dl (8.4-10.2); Carbon Dioxide 26 mmol/L (22-30); Chloride 93 mmol/L (98-107); Glucose 115 mg/dl (70-99); Potassium 4.1 mmol/L (3.5-5.1); Sodium 130 mmol/L (135-145); Total Bilirubin 1.8 mg/dl (0.2-1.3); eGFR > 60.00
== END 2024-03-14 23:59 | disposition home or self-care (01) ==
LOC: OID 09:40
PROVIDERS: ATTENDING PHYSICIAN Internal Medicine Hematology & Oncology
DX: C50.312 Malignant neoplasm of lower-inner quadrant of left female breast (principal); Z17.0 Estrogen receptor positive status [ER+]
CPT/HCPCS: 36430; 80053; 85025; 86850; 86900; 86901; 86920; P9016

== ENCOUNTER → 2024-03-10 07:16 | Outpatient (REF) | payer OTHER, SELFPAY | LOC: RCS 07:16 | PROVIDERS: ATTENDING PHYSICIAN Internal Medicine; FAMILY PHYSICIAN Family Medicine; REFERRING PHYSICIAN Internal Medicine Hematology & Oncology | DX: R06.09 Other forms of dyspnea (principal); C79.9 Secondary malignant neoplasm of unspecified site; C50.919 Malignant neoplasm of unspecified site of unspecified female breast; I48.0 Paroxysmal atrial fibrillation | CPT/HCPCS: 93306 ==

== ENCOUNTER → 2024-03-14 09:08 | Outpatient (REF) | payer OTHER, SELFPAY ==
[2024-03-14 09:55] LABS: ALT (SGPT) 29 U/L (0-35); AST (SGOT) 28 U/L (14-36); Albumin 3.1 g/dl (3.5-5.0); Alkaline Phosphatase 398 U/L (38-126); Blood Urea Nitrogen 13 mg/dl (7-17); Calcium 7.9 mg/dl (8.4-10.2); Carbon Dioxide 24 mmol/L (22-30); Chloride 96 mmol/L (98-107); Glucose 113 mg/dl (70-99); Hemoglobin 9.4 g/dL (12.0-16.0); Mean Corp Hgb Conc. 33.6 g/dL (33.0-37.0); Mean Corpuscular Hgb 29.5 pg (27.0-31.0); Mean Corpuscular Volume 87.8 fL (81.0-99.0); Mean Platelet Volume 12.3 fL (7.4-10.4); Platelet Count 62 10^3/uL (130-400); Potassium 3.5 mmol/L (3.5-5.1); Red Blood Cell Count 3.19 10^6/uL (4.20-5.40); Red Cell Dist. Width 16.2 % (11.5-14.5); Sodium 132 mmol/L (135-145); Total Bilirubin 1.6 mg/dl (0.2-1.3); Total Protein 5.7 g/dl (6.3-8.2); White Blood Cell Count 1.2 10^3/uL (4.8-10.8); eGFR > 60.00
[2024-03-14 10:18] LABS: Band Neutrophils 14 % (0-3); Lymphocytes 32 % (20-51); Metamyelocytes 8 % (-); Monocytes 24 % (2-9); Normal RBC Morphology No; Platelets Checked Yes; Segmented Neutrophils 22 % (42-75)
[2024-03-14 10:19] LABS: Anisocytosis 1+; Nucleated Red Blood Cells 2 (-); Polychromasia 1+; Total Cells Counted 100
[2024-03-14 10:21] LABS: Absolute Neutrophils -Man Diff 0.4 10^3/uL (1.4-6.5)
== END ==
LOC: OIDL 09:08
PROVIDERS: ATTENDING PHYSICIAN Internal Medicine Hematology & Oncology
DX: C50.312 Malignant neoplasm of lower-inner quadrant of left female breast (principal); C77.3 Secondary and unspecified malignant neoplasm of axilla and upper limb lymph nodes; G89.3 Neoplasm related pain (acute) (chronic)
CPT/HCPCS: 80053; 85025

== ENCOUNTER → 2024-03-24 14:26 | Outpatient (REF) | payer OTHER, SELFPAY ==
[2024-03-24 11:27] LABS: % Basophils 0.7 % (0-2); % Eosinophils 0.2 % (0-6); % Immature Granulocytes 2.3 % (0-0.5); % Lymphocytes 7.7 % (20.5-51.1); % Monocytes 8.8 % (1.7-9.3); % Neutrophils 80.3 % (42.2-75.2); Absolute Basophils 0.1 10^3/uL (0-0.2); Absolute Immature Granulocytes 0.3 10^3/uL (0-0.05); Absolute Monocytes 1.2 10^3/uL (0.1-0.6); Absolute Neutrophils 10.5 10^3/uL (1.4-6.5); Hematocrit 35.9 % (37.0-47.0); Hemoglobin 11.4 g/dL (12.0-16.0); Mean Corp Hgb Conc. 31.8 g/dL (33.0-37.0); Mean Corpuscular Hgb 29.2 pg (27.0-31.0); Mean Corpuscular Volume 91.8 fL (81.0-99.0); Mean Platelet Volume 9.7 fL (7.4-10.4); Platelet Count 442 10^3/uL (130-400); Red Blood Cell Count 3.91 10^6/uL (4.20-5.40); Red Cell Dist. Width 17.9 % (11.5-14.5); White Blood Cell Count 13.1 10^3/uL (4.8-10.8)
[2024-03-24 12:20] LABS: ALT (SGPT) 47 U/L (0-35); AST (SGOT) 59 U/L (14-36); Albumin 4.4 g/dl (3.5-5.0); Alkaline Phosphatase 545 U/L (38-126); Blood Urea Nitrogen 15 mg/dl (7-17); Calcium 9.7 mg/dl (8.4-10.2); Chloride 101 mmol/L (98-107); Glucose 89 mg/dl (70-99); Potassium 4.1 mmol/L (3.5-5.1); Sodium 137 mmol/L (135-145); Total Bilirubin 0.9 mg/dl (0.2-1.3); eGFR > 60.00
[2024-03-24 12:22] LABS: Carbon Dioxide 25 mmol/L (22-30)
== END ==
LOC: OIDL 14:26
PROVIDERS: ATTENDING PHYSICIAN Internal Medicine Hematology & Oncology
DX: C50.312 Malignant neoplasm of lower-inner quadrant of left female breast (principal)
CPT/HCPCS: 80053; 85025

== ENCOUNTER → 2024-03-27 12:15 | Outpatient (REF) | payer OTHER, SELFPAY ==
[2024-03-27 12:00] LABS: % Eosinophils 0.3 % (0-6); % Immature Granulocytes 0.6 % (0-0.5); % Lymphocytes 10.3 % (20.5-51.1); % Neutrophils 78.8 % (42.2-75.2); Absolute Basophils 0.1 10^3/uL (0-0.2); Absolute Lymphocytes 0.7 10^3/uL (1.2-3.4); Absolute Monocytes 0.6 10^3/uL (0.1-0.6); Absolute Neutrophils 5.4 10^3/uL (1.4-6.5); Hematocrit 31.8 % (37.0-47.0); Hemoglobin 10.3 g/dL (12.0-16.0); Mean Corp Hgb Conc. 32.4 g/dL (33.0-37.0); Mean Corpuscular Hgb 29.9 pg (27.0-31.0); Mean Corpuscular Volume 92.2 fL (81.0-99.0); Mean Platelet Volume 9.3 fL (7.4-10.4); Platelet Count 375 10^3/uL (130-400); Red Blood Cell Count 3.45 10^6/uL (4.20-5.40); Red Cell Dist. Width 18.3 % (11.5-14.5); White Blood Cell Count 6.8 10^3/uL (4.8-10.8)
== END ==
LOC: OIDL 12:15
PROVIDERS: ATTENDING PHYSICIAN Internal Medicine Hematology & Oncology
DX: C50.312 Malignant neoplasm of lower-inner quadrant of left female breast (principal)
CPT/HCPCS: 85025; 86850; 86900; 86901

== ENCOUNTER 2024-04-01 09:40 | Outpatient (RCR) | payer OTHER, SELFPAY ==
[2024-04-01 09:00] LABS: % Basophils 0.6 % (0-2); % Eosinophils 0.3 % (0-6); % Immature Granulocytes 0.6 % (0-0.5); % Lymphocytes 5.8 % (20.5-51.1); % Monocytes 3.8 % (1.7-9.3); % Neutrophils 88.9 % (42.2-75.2); Absolute Basophils 0.1 10^3/uL (0-0.2); Absolute Immature Granulocytes 0.1 10^3/uL (0-0.05); Absolute Lymphocytes 0.6 10^3/uL (1.2-3.4); Absolute Monocytes 0.4 10^3/uL (0.1-0.6); Absolute Neutrophils 8.8 10^3/uL (1.4-6.5); Hematocrit 34.9 % (37.0-47.0); Hemoglobin 11.4 g/dL (12.0-16.0); Mean Corp Hgb Conc. 32.7 g/dL (33.0-37.0); Mean Corpuscular Hgb 29.7 pg (27.0-31.0); Mean Corpuscular Volume 90.9 fL (81.0-99.0); Platelet Count 263 10^3/uL (130-400); Red Blood Cell Count 3.84 10^6/uL (4.20-5.40); White Blood Cell Count 9.9 10^3/uL (4.8-10.8)
== END 2024-04-01 23:59 | disposition home or self-care (01) ==
LOC: OID 09:40
PROVIDERS: ATTENDING PHYSICIAN Internal Medicine Hematology & Oncology
DX: C50.312 Malignant neoplasm of lower-inner quadrant of left female breast (principal); C77.3 Secondary and unspecified malignant neoplasm of axilla and upper limb lymph nodes; Z17.0 Estrogen receptor positive status [ER+]; G89.3 Neoplasm related pain (acute) (chronic); C7A.8 Other malignant neuroendocrine tumors; C79.51 Secondary malignant neoplasm of bone; C78.7 Secondary malignant neoplasm of liver and intrahepatic bile duct
CPT/HCPCS: 85025

== ENCOUNTER → 2024-04-14 16:04 | Outpatient (REF) | payer OTHER, SELFPAY ==
[2024-04-14 08:44] LABS: % Basophils 0.7 % (0-2); % Eosinophils 1.4 % (0-6); % Immature Granulocytes 0.8 % (0-0.5); % Lymphocytes 12.2 % (20.5-51.1); % Monocytes 11.3 % (1.7-9.3); % Neutrophils 73.6 % (42.2-75.2); Absolute Basophils 0.1 10^3/uL (0-0.2); Absolute Eosinophils 0.1 10^3/uL (0-0.7); Absolute Immature Granulocytes 0.1 10^3/uL (0-0.05); Absolute Neutrophils 6.2 10^3/uL (1.4-6.5); Hematocrit 34.4 % (37.0-47.0); Hemoglobin 11.4 g/dL (12.0-16.0); Mean Corp Hgb Conc. 33.1 g/dL (33.0-37.0); Mean Corpuscular Hgb 29.9 pg (27.0-31.0); Mean Corpuscular Volume 90.3 fL (81.0-99.0); Mean Platelet Volume 9.7 fL (7.4-10.4); Platelet Count 414 10^3/uL (130-400); Red Blood Cell Count 3.81 10^6/uL (4.20-5.40); Red Cell Dist. Width 18.9 % (11.5-14.5); White Blood Cell Count 8.4 10^3/uL (4.8-10.8)
[2024-04-14 09:37] LABS: ALT (SGPT) 60 U/L (0-35); AST (SGOT) 63 U/L (14-36); Albumin 4.3 g/dl (3.5-5.0); Alkaline Phosphatase 301 U/L (38-126); Blood Urea Nitrogen 15 mg/dl (7-17); Calcium 10.4 mg/dl (8.4-10.2); Carbon Dioxide 26 mmol/L (22-30); Chloride 102 mmol/L (98-107); Glucose 83 mg/dl (70-99); Potassium 4.4 mmol/L (3.5-5.1); Sodium 138 mmol/L (135-145); Total Bilirubin 0.6 mg/dl (0.2-1.3); Total Protein 7.1 g/dl (6.3-8.2); eGFR > 60.00
== END ==
LOC: OIDL 16:04
PROVIDERS: ATTENDING PHYSICIAN Internal Medicine Hematology & Oncology
DX: C50.312 Malignant neoplasm of lower-inner quadrant of left female breast (principal); C77.3 Secondary and unspecified malignant neoplasm of axilla and upper limb lymph nodes
CPT/HCPCS: 80053; 85025

== ENCOUNTER → 2024-04-24 09:45 | Outpatient (REF) | payer OTHER, SELFPAY ==
[2024-04-24 09:52] LABS: % Basophils 0.4 % (0-2); % Eosinophils 0.8 % (0-6); % Immature Granulocytes 0.5 % (0-0.5); % Lymphocytes 7.9 % (20.5-51.1); % Monocytes 16.2 % (1.7-9.3); % Neutrophils 74.2 % (42.2-75.2); Absolute Eosinophils 0.1 10^3/uL (0-0.7); Absolute Lymphocytes 0.6 10^3/uL (1.2-3.4); Absolute Monocytes 1.3 10^3/uL (0.1-0.6); Absolute Neutrophils 5.8 10^3/uL (1.4-6.5); Hematocrit 28.3 % (37.0-47.0); Hemoglobin 9.5 g/dL (12.0-16.0); Mean Corp Hgb Conc. 33.6 g/dL (33.0-37.0); Mean Corpuscular Hgb 29.9 pg (27.0-31.0); Mean Platelet Volume 9.9 fL (7.4-10.4); Platelet Count 181 10^3/uL (130-400); Red Blood Cell Count 3.18 10^6/uL (4.20-5.40); White Blood Cell Count 7.8 10^3/uL (4.8-10.8)
[2024-04-24 10:39] LABS: ALT (SGPT) 125 U/L (0-35); AST (SGOT) 80 U/L (14-36); Alkaline Phosphatase 417 U/L (38-126); Blood Urea Nitrogen 14 mg/dl (7-17); Carbon Dioxide 25 mmol/L (22-30); Glucose 87 mg/dl (70-99); Sodium 138 mmol/L (135-145); Total Bilirubin 0.8 mg/dl (0.2-1.3); Total Protein 6.8 g/dl (6.3-8.2); eGFR > 60.00
[2024-04-24 10:51] LABS: NT-proBNP 45.4 pg/ml; Troponin I < 0.012 ng/ml
[2024-04-24 10:58] LABS: Albumin 4.2 g/dl (3.5-5.0); Chloride 104 mmol/L (98-107); Potassium 4.1 mmol/L (3.5-5.1)
== END ==
LOC: OIDL 09:45
PROVIDERS: ATTENDING PHYSICIAN Internal Medicine Hematology & Oncology
DX: C50.312 Malignant neoplasm of lower-inner quadrant of left female breast (principal); C77.3 Secondary and unspecified malignant neoplasm of axilla and upper limb lymph nodes
CPT/HCPCS: 80053; 83880; 84484; 85025

== ENCOUNTER → 2024-04-29 08:56 | Outpatient (REF) | payer OTHER, SELFPAY ==
[2024-04-29 09:00] LABS: % Basophils 0.8 % (0-2); % Eosinophils 1.4 % (0-6); % Lymphocytes 12.7 % (20.5-51.1); % Monocytes 14.4 % (1.7-9.3); % Neutrophils 65.7 % (42.2-75.2); Absolute Basophils 0.1 10^3/uL (0-0.2); Absolute Eosinophils 0.1 10^3/uL (0-0.7); Absolute Immature Granulocytes 0.4 10^3/uL (0-0.05); Absolute Lymphocytes 1.1 10^3/uL (1.2-3.4); Absolute Monocytes 1.2 10^3/uL (0.1-0.6); Absolute Neutrophils 5.7 10^3/uL (1.4-6.5); Hematocrit 29.7 % (37.0-47.0); Mean Corp Hgb Conc. 33.7 g/dL (33.0-37.0); Mean Corpuscular Hgb 30.1 pg (27.0-31.0); Mean Corpuscular Volume 89.5 fL (81.0-99.0); Mean Platelet Volume 10.7 fL (7.4-10.4); Platelet Count 124 10^3/uL (130-400); Red Blood Cell Count 3.32 10^6/uL (4.20-5.40); Red Cell Dist. Width 19.6 % (11.5-14.5); White Blood Cell Count 8.6 10^3/uL (4.8-10.8)
[2024-04-29 10:19] LABS: ALT (SGPT) 97 U/L (0-35); AST (SGOT) 74 U/L (14-36); Albumin 4.2 g/dl (3.5-5.0); Alkaline Phosphatase 353 U/L (38-126); Blood Urea Nitrogen 19 mg/dl (7-17); Carbon Dioxide 26 mmol/L (22-30); Chloride 105 mmol/L (98-107); Glucose 90 mg/dl (70-99); Sodium 138 mmol/L (135-145); Total Bilirubin 0.5 mg/dl (0.2-1.3); Total Protein 6.8 g/dl (6.3-8.2); eGFR > 60.00
== END ==
LOC: OIDL 08:56
PROVIDERS: ATTENDING PHYSICIAN Internal Medicine Hematology & Oncology
DX: C50.312 Malignant neoplasm of lower-inner quadrant of left female breast (principal); C77.3 Secondary and unspecified malignant neoplasm of axilla and upper limb lymph nodes; G89.3 Neoplasm related pain (acute) (chronic); C7A.8 Other malignant neuroendocrine tumors; C79.51 Secondary malignant neoplasm of bone; C78.7 Secondary malignant neoplasm of liver and intrahepatic bile duct
CPT/HCPCS: 80053; 85025

== ENCOUNTER → 2024-05-02 10:12 | Outpatient (REF) | payer OTHER, SELFPAY | LOC: RCS 10:12 | PROVIDERS: ATTENDING PHYSICIAN Internal Medicine; FAMILY PHYSICIAN Family Medicine; OTHER PHYSICIAN Internal Medicine Hematology & Oncology | DX: R00.0 Tachycardia, unspecified (principal); I48.91 Unspecified atrial fibrillation | CPT/HCPCS: 93225; 93226; 93306 ==

== ENCOUNTER → 2024-05-05 09:06 | Outpatient (REF) | payer OTHER, SELFPAY ==
[2024-05-05 09:16] LABS: % Basophils 0.4 % (0-2); % Eosinophils 1.5 % (0-6); % Immature Granulocytes 0.4 % (0-0.5); % Lymphocytes 13.8 % (20.5-51.1); % Monocytes 11.1 % (1.7-9.3); % Neutrophils 72.8 % (42.2-75.2); Absolute Eosinophils 0.1 10^3/uL (0-0.7); Absolute Monocytes 0.8 10^3/uL (0.1-0.6); Absolute Neutrophils 5.2 10^3/uL (1.4-6.5); Hematocrit 30.6 % (37.0-47.0); Hemoglobin 10.4 g/dL (12.0-16.0); Mean Corpuscular Hgb 31.2 pg (27.0-31.0); Mean Corpuscular Volume 91.9 fL (81.0-99.0); Platelet Count 364 10^3/uL (130-400); Red Blood Cell Count 3.33 10^6/uL (4.20-5.40); Red Cell Dist. Width 21.1 % (11.5-14.5); White Blood Cell Count 7.1 10^3/uL (4.8-10.8)
[2024-05-05 10:13] LABS: ALT (SGPT) 80 U/L (0-35); AST (SGOT) 68 U/L (14-36); Albumin 4.3 g/dl (3.5-5.0); Alkaline Phosphatase 278 U/L (38-126); Blood Urea Nitrogen 19 mg/dl (7-17); Calcium 10.2 mg/dl (8.4-10.2); Carbon Dioxide 26 mmol/L (22-30); Glucose 84 mg/dl (70-99); Potassium 4.5 mmol/L (3.5-5.1); Sodium 137 mmol/L (135-145); Total Bilirubin 0.6 mg/dl (0.2-1.3); eGFR > 60.00
[2024-05-05 11:51] LABS: Chloride 105 mmol/L (98-107)
== END ==
LOC: OIDL 09:06
PROVIDERS: ATTENDING PHYSICIAN Internal Medicine Hematology & Oncology
DX: C50.312 Malignant neoplasm of lower-inner quadrant of left female breast (principal); C77.3 Secondary and unspecified malignant neoplasm of axilla and upper limb lymph nodes; G89.3 Neoplasm related pain (acute) (chronic); C7A.8 Other malignant neuroendocrine tumors; C79.51 Secondary malignant neoplasm of bone; C78.7 Secondary malignant neoplasm of liver and intrahepatic bile duct
CPT/HCPCS: 80053; 85025

== ENCOUNTER → 2024-05-13 15:12 | Outpatient (REF) | payer OTHER, SELFPAY ==
[2024-05-13 15:30] LABS: % Basophils 0.1 % (0-2); % Eosinophils 0.9 % (0-6); % Immature Granulocytes 0.8 % (0-0.5); % Lymphocytes 4.8 % (20.5-51.1); % Neutrophils 86.4 % (42.2-75.2); Absolute Eosinophils 0.1 10^3/uL (0-0.7); Absolute Immature Granulocytes 0.1 10^3/uL (0-0.05); Absolute Lymphocytes 0.6 10^3/uL (1.2-3.4); Absolute Monocytes 0.9 10^3/uL (0.1-0.6); Absolute Neutrophils 10.7 10^3/uL (1.4-6.5); Hematocrit 29.8 % (37.0-47.0); Hemoglobin 10.1 g/dL (12.0-16.0); Mean Corp Hgb Conc. 33.9 g/dL (33.0-37.0); Mean Corpuscular Hgb 31.9 pg (27.0-31.0); Mean Platelet Volume 10.7 fL (7.4-10.4); Platelet Count 260 10^3/uL (130-400); Red Blood Cell Count 3.17 10^6/uL (4.20-5.40); Red Cell Dist. Width 19.5 % (11.5-14.5); White Blood Cell Count 12.4 10^3/uL (4.8-10.8)
[2024-05-13 16:22] LABS: ALT (SGPT) 132 U/L (0-35); AST (SGOT) 112 U/L (14-36); Albumin 4.5 g/dl (3.5-5.0); Alkaline Phosphatase 356 U/L (38-126); Blood Urea Nitrogen 16 mg/dl (7-17); Calcium 9.9 mg/dl (8.4-10.2); Carbon Dioxide 27 mmol/L (22-30); Chloride 103 mmol/L (98-107); Glucose 117 mg/dl (70-99); Potassium 4.2 mmol/L (3.5-5.1); Sodium 139 mmol/L (135-145); Total Bilirubin 0.8 mg/dl (0.2-1.3); Total Protein 7.2 g/dl (6.3-8.2); eGFR > 60.00
== END ==
LOC: OIDL 15:12
PROVIDERS: ATTENDING PHYSICIAN Internal Medicine Hematology & Oncology
DX: C50.312 Malignant neoplasm of lower-inner quadrant of left female breast (principal)
CPT/HCPCS: 80053; 85025

== ENCOUNTER → 2024-05-20 16:25 | Outpatient (REF) | payer OTHER, SELFPAY ==
[2024-05-20 16:18] LABS: ALT (SGPT) 77 U/L (0-35); AST (SGOT) 51 U/L (14-36); Albumin 4.3 g/dl (3.5-5.0); Alkaline Phosphatase 336 U/L (38-126); Blood Urea Nitrogen 18 mg/dl (7-17); Calcium 9.8 mg/dl (8.4-10.2); Carbon Dioxide 29 mmol/L (22-30); Chloride 103 mmol/L (98-107); Glucose 102 mg/dl (70-99); Potassium 3.9 mmol/L (3.5-5.1); Sodium 139 mmol/L (135-145); Total Bilirubin 0.4 mg/dl (0.2-1.3); Total Protein 7.1 g/dl (6.3-8.2); eGFR > 60.00
== END ==
LOC: OIDL 16:25
PROVIDERS: ATTENDING PHYSICIAN Internal Medicine Hematology & Oncology
DX: C50.312 Malignant neoplasm of lower-inner quadrant of left female breast (principal); C77.3 Secondary and unspecified malignant neoplasm of axilla and upper limb lymph nodes; G89.3 Neoplasm related pain (acute) (chronic); C7A.8 Other malignant neuroendocrine tumors; C79.51 Secondary malignant neoplasm of bone; C78.7 Secondary malignant neoplasm of liver and intrahepatic bile duct
CPT/HCPCS: 80053

== ENCOUNTER → 2024-05-26 14:59 | Outpatient (REF) | payer OTHER, SELFPAY ==
[2024-05-26 15:08] LABS: % Basophils 0.6 % (0-2); % Immature Granulocytes 0.5 % (0-0.5); % Lymphocytes 7.4 % (20.5-51.1); % Monocytes 6.2 % (1.7-9.3); % Neutrophils 84.3 % (42.2-75.2); Absolute Basophils 0.1 10^3/uL (0-0.2); Absolute Eosinophils 0.1 10^3/uL (0-0.7); Absolute Immature Granulocytes 0.1 10^3/uL (0-0.05); Absolute Lymphocytes 0.8 10^3/uL (1.2-3.4); Absolute Monocytes 0.7 10^3/uL (0.1-0.6); Absolute Neutrophils 9.5 10^3/uL (1.4-6.5); Hematocrit 29.9 % (37.0-47.0); Mean Corp Hgb Conc. 33.4 g/dL (33.0-37.0); Mean Corpuscular Hgb 32.8 pg (27.0-31.0); Mean Platelet Volume 9.9 fL (7.4-10.4); Platelet Count 314 10^3/uL (130-400); Red Blood Cell Count 3.05 10^6/uL (4.20-5.40); Red Cell Dist. Width 19.5 % (11.5-14.5); White Blood Cell Count 11.3 10^3/uL (4.8-10.8)
[2024-05-26 15:45] LABS: ALT (SGPT) 51 U/L (0-35); AST (SGOT) 52 U/L (14-36); Albumin 4.9 g/dl (3.5-5.0); Alkaline Phosphatase 263 U/L (38-126); Blood Urea Nitrogen 22 mg/dl (7-17); Calcium 9.8 mg/dl (8.4-10.2); Carbon Dioxide 26 mmol/L (22-30); Chloride 105 mmol/L (98-107); Glucose 88 mg/dl (70-99); Potassium 4.1 mmol/L (3.5-5.1); Sodium 142 mmol/L (135-145); Total Bilirubin 0.5 mg/dl (0.2-1.3); Total Protein 7.5 g/dl (6.3-8.2); eGFR > 60.00
== END ==
LOC: OIDL 14:59
PROVIDERS: ATTENDING PHYSICIAN Internal Medicine Hematology & Oncology
DX: C50.312 Malignant neoplasm of lower-inner quadrant of left female breast (principal)
CPT/HCPCS: 80053; 85025

== ENCOUNTER → 2024-06-11 07:20 | Outpatient (REF) | payer OTHER, SELFPAY | LOC: HWRAD 07:20 | PROVIDERS: ATTENDING PHYSICIAN Internal Medicine Hematology & Oncology; FAMILY PHYSICIAN Family Medicine | DX: C50.312 Malignant neoplasm of lower-inner quadrant of left female breast (principal); C77.3 Secondary and unspecified malignant neoplasm of axilla and upper limb lymph nodes; G89.3 Neoplasm related pain (acute) (chronic); C7A.8 Other malignant neuroendocrine tumors; C79.51 Secondary malignant neoplasm of bone; C78.7 Secondary malignant neoplasm of liver and intrahepatic bile duct; E03.9 Hypothyroidism, unspecified | CPT/HCPCS: 76705 ==

== ENCOUNTER → 2024-06-24 16:11 | Outpatient (REF) | payer OTHER, SELFPAY ==
[2024-06-24 14:10] LABS: % Basophils 0.7 % (0-2); % Eosinophils 5.8 % (0-6); % Immature Granulocytes 0.2 % (0-0.5); % Lymphocytes 11.1 % (20.5-51.1); % Monocytes 8.1 % (1.7-9.3); % Neutrophils 74.1 % (42.2-75.2); Absolute Basophils 0.1 10^3/uL (0-0.2); Absolute Eosinophils 0.5 10^3/uL (0-0.7); Absolute Lymphocytes 0.9 10^3/uL (1.2-3.4); Absolute Monocytes 0.7 10^3/uL (0.1-0.6); Absolute Neutrophils 6.1 10^3/uL (1.4-6.5); Hematocrit 34.1 % (37.0-47.0); Hemoglobin 11.5 g/dL (12.0-16.0); Mean Corp Hgb Conc. 33.7 g/dL (33.0-37.0); Mean Corpuscular Hgb 34.2 pg (27.0-31.0); Mean Corpuscular Volume 101.5 fL (81.0-99.0); Mean Platelet Volume 9.7 fL (7.4-10.4); Platelet Count 285 10^3/uL (130-400); Red Blood Cell Count 3.36 10^6/uL (4.20-5.40); Red Cell Dist. Width 13.4 % (11.5-14.5); White Blood Cell Count 8.3 10^3/uL (4.8-10.8)
[2024-06-24 14:38] LABS: ALT (SGPT) 50 U/L (0-35); AST (SGOT) 57 U/L (14-36); Albumin 4.7 g/dl (3.5-5.0); Alkaline Phosphatase 223 U/L (38-126); Blood Urea Nitrogen 20 mg/dl (7-17); Calcium 10.3 mg/dl (8.4-10.2); Carbon Dioxide 29 mmol/L (22-30); Chloride 106 mmol/L (98-107); Glucose 110 mg/dl (70-99); Potassium 4.1 mmol/L (3.5-5.1); Sodium 141 mmol/L (135-145); Total Bilirubin 0.5 mg/dl (0.2-1.3); Total Protein 7.6 g/dl (6.3-8.2); eGFR > 60.00
== END ==
LOC: OIDL 16:11
PROVIDERS: ATTENDING PHYSICIAN Internal Medicine Hematology & Oncology
DX: C50.312 Malignant neoplasm of lower-inner quadrant of left female breast (principal)
CPT/HCPCS: 80053; 85025

== ENCOUNTER → 2024-07-29 07:30 | Outpatient (REF) | payer OTHER, SELFPAY | LOC: MRI 07:30 | PROVIDERS: ATTENDING PHYSICIAN Nurse Practitioner Adult Health; FAMILY PHYSICIAN Family Medicine | DX: C50.312 Malignant neoplasm of lower-inner quadrant of left female breast (principal); C77.3 Secondary and unspecified malignant neoplasm of axilla and upper limb lymph nodes; G89.3 Neoplasm related pain (acute) (chronic); C7A.8 Other malignant neuroendocrine tumors; C79.51 Secondary malignant neoplasm of bone; C78.7 Secondary malignant neoplasm of liver and intrahepatic bile duct; E03.9 Hypothyroidism, unspecified | CPT/HCPCS: 70553; A9575 ==

== ENCOUNTER → 2024-07-29 15:51 | Outpatient (REF) | payer OTHER, SELFPAY ==
[2024-07-29 13:54] LABS: % Basophils 0.5 % (0-2); % Eosinophils 1.7 % (0-6); % Immature Granulocytes 0.4 % (0-0.5); % Monocytes 9.9 % (1.7-9.3); % Neutrophils 76.5 % (42.2-75.2); Absolute Eosinophils 0.1 10^3/uL (0-0.7); Absolute Lymphocytes 0.9 10^3/uL (1.2-3.4); Absolute Monocytes 0.8 10^3/uL (0.1-0.6); Absolute Neutrophils 6.3 10^3/uL (1.4-6.5); Hematocrit 31.6 % (37.0-47.0); Hemoglobin 10.8 g/dL (12.0-16.0); Mean Corp Hgb Conc. 34.2 g/dL (33.0-37.0); Mean Corpuscular Hgb 32.5 pg (27.0-31.0); Mean Corpuscular Volume 95.2 fL (81.0-99.0); Mean Platelet Volume 9.3 fL (7.4-10.4); Platelet Count 355 10^3/uL (130-400); Red Blood Cell Count 3.32 10^6/uL (4.20-5.40); Red Cell Dist. Width 11.8 % (11.5-14.5); White Blood Cell Count 8.3 10^3/uL (4.8-10.8)
== END ==
LOC: OIDL 15:51
PROVIDERS: ATTENDING PHYSICIAN Internal Medicine Hematology & Oncology
DX: C50.312 Malignant neoplasm of lower-inner quadrant of left female breast (principal); C77.3 Secondary and unspecified malignant neoplasm of axilla and upper limb lymph nodes; G89.3 Neoplasm related pain (acute) (chronic); C7A.8 Other malignant neuroendocrine tumors; C79.51 Secondary malignant neoplasm of bone; C78.7 Secondary malignant neoplasm of liver and intrahepatic bile duct; E03.9 Hypothyroidism, unspecified
CPT/HCPCS: 85025

== ENCOUNTER → 2024-08-04 10:28 | Outpatient (REF) | payer OTHER, SELFPAY ==
[2024-08-04 11:06] LABS: HCG, Urine Qualitative Screen Negative
== END ==
LOC: REG 10:28
PROVIDERS: ATTENDING PHYSICIAN Radiology Radiation Oncology; FAMILY PHYSICIAN Family Medicine
DX: C79.31 Secondary malignant neoplasm of brain (principal)
CPT/HCPCS: 81025

== ENCOUNTER 2024-08-11 11:13 | Outpatient (RCR) | payer OTHER, SELFPAY ==
[2024-08-11 11:29] LABS: % Basophils 0.3 % (0-2); % Eosinophils 0.7 % (0-6); % Immature Granulocytes 0.5 % (0-0.5); % Lymphocytes 7.7 % (20.5-51.1); % Monocytes 9.8 % (1.7-9.3); Absolute Eosinophils 0.1 10^3/uL (0-0.7); Absolute Lymphocytes 0.7 10^3/uL (1.2-3.4); Absolute Monocytes 0.9 10^3/uL (0.1-0.6); Absolute Neutrophils 7.2 10^3/uL (1.4-6.5); Hematocrit 30.3 % (37.0-47.0); Hemoglobin 10.2 g/dL (12.0-16.0); Mean Corp Hgb Conc. 33.7 g/dL (33.0-37.0); Mean Corpuscular Hgb 31.4 pg (27.0-31.0); Mean Corpuscular Volume 93.2 fL (81.0-99.0); Mean Platelet Volume 9.5 fL (7.4-10.4); Platelet Count 450 10^3/uL (130-400); Red Blood Cell Count 3.25 10^6/uL (4.20-5.40); Red Cell Dist. Width 12.1 % (11.5-14.5); White Blood Cell Count 8.9 10^3/uL (4.8-10.8)
[2024-08-11 12:17] LABS: ALT (SGPT) 47 U/L (0-35); AST (SGOT) 125 U/L (14-36); Albumin 4.1 g/dl (3.5-5.0); Alkaline Phosphatase 620 U/L (38-126); Blood Urea Nitrogen 12 mg/dl (7-17); Calcium 10.4 mg/dl (8.4-10.2); Carbon Dioxide 28 mmol/L (22-30); Chloride 100 mmol/L (98-107); Direct Bilirubin 0.3 mg/dl (0.0-0.4); Glucose 84 mg/dl (70-99); Potassium 4.5 mmol/L (3.5-5.1); Sodium 137 mmol/L (135-145); Total Bilirubin 0.6 mg/dl (0.2-1.3); Total Protein 7.2 g/dl (6.3-8.2); eGFR > 60.00
== END 2024-08-11 23:59 | disposition home or self-care (01) ==
LOC: OID 11:13
PROVIDERS: ATTENDING PHYSICIAN Internal Medicine Hematology & Oncology
DX: C50.312 Malignant neoplasm of lower-inner quadrant of left female breast (principal); C78.7 Secondary malignant neoplasm of liver and intrahepatic bile duct; C79.51 Secondary malignant neoplasm of bone; C7A.8 Other malignant neuroendocrine tumors; C77.3 Secondary and unspecified malignant neoplasm of axilla and upper limb lymph nodes; G89.3 Neoplasm related pain (acute) (chronic); E03.9 Hypothyroidism, unspecified
CPT/HCPCS: 80053; 82248; 85025

== ENCOUNTER → 2024-08-12 18:35 | Outpatient (REF) | payer OTHER, SELFPAY | LOC: MRI 18:35 | PROVIDERS: ATTENDING PHYSICIAN Internal Medicine Hematology & Oncology; FAMILY PHYSICIAN Family Medicine | DX: C50.312 Malignant neoplasm of lower-inner quadrant of left female breast (principal); C77.3 Secondary and unspecified malignant neoplasm of axilla and upper limb lymph nodes; G89.3 Neoplasm related pain (acute) (chronic); C7A.8 Other malignant neuroendocrine tumors; C79.51 Secondary malignant neoplasm of bone; C78.7 Secondary malignant neoplasm of liver and intrahepatic bile duct; E03.9 Hypothyroidism, unspecified | CPT/HCPCS: 72156; 72158; A9575 ==

== ENCOUNTER → 2024-08-14 17:44 | Outpatient (REF) | payer OTHER, SELFPAY | LOC: MRI 17:44 | PROVIDERS: ATTENDING PHYSICIAN Internal Medicine Hematology & Oncology; FAMILY PHYSICIAN Family Medicine | DX: C50.312 Malignant neoplasm of lower-inner quadrant of left female breast (principal); C77.3 Secondary and unspecified malignant neoplasm of axilla and upper limb lymph nodes; G89.3 Neoplasm related pain (acute) (chronic); C7A.8 Other malignant neuroendocrine tumors; C79.51 Secondary malignant neoplasm of bone; C78.7 Secondary malignant neoplasm of liver and intrahepatic bile duct; E03.9 Hypothyroidism, unspecified | CPT/HCPCS: 72157; A9575 ==

== ENCOUNTER 2024-08-15 11:42 | Inpatient (IN) | payer OTHER, SELFPAY ==
[2024-08-15] VITALS (11 sets, daily range): BP systolic 100–122; BP diastolic 57–81; BMI 21.0; BMI 20.5
--- NOTE | 2024-08-15 08:29 | ED.GENMED ---
History of Present Illness
General
Chief Complaint: Generalized Pain
Source: patient and family
Exam Limitations: none
Time Seen by Provider: 08/15/24 08:16
History of Present Illness
History of Present Illness:
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 Currently not on chemo. Intractable pain mostly in her pelvis back legs. This has been chronic issue but much worse the last few days. Family and patient
speculate it may be due to lying significantly in the MRI. No acute bowel or bladder issues. Constipated from her pain management. No unusual focal weakness just generally weak secondary to pain. No fever.
Past History
Past History
ED Past Medical History: Cancer (Metastatic breast CA/small cell CA) and Other (Kidney stones, hypertension)
Social History
Tobacco: Non-smoker
Alcohol: None
Family History
Family History: Negative Diabetes, Hypertension or CAD
Review of Systems
Review of Systems
All Other Systems: Not applicable
Constitutional: Denies fever or chills
Respiratory: Reports no symptoms
Cardiac: Reports no symptoms
ABD/GI: Reports no symptoms
Phy Exam
Physical Exam
Physical Exam:
GENERAL: Alert and oriented. Appears very uncomfortable. Somewhat agitated with pain.
EYE: Orbits normal.
NECK: Supple
CARDIAC: Regular rate and rhythm without any obvious murmurs.
LUNGS: Clear breath sounds,normal. Port upper chest wall
ABDOMEN: Soft, without focal tenderness or distention
NEUROLOGICAL: Alert and oriented , grossly non-focal
SKIN: Warm and dry, no rash or lesion, no discoloration, skin intact.
MUSCULOSKELETAL: No edema,no deformity.Good color. Good lower extremity strength. Light touch intact. No obvious spinal tenderness. Although location of pain is low back in the pelvis.
PSYCH: Normal and appropriate interaction.
Course
Orders/Labs/Results
Orders:
Orders
08/15/24 08:27
IV Insert/Care/Rem.- Treatment PRN
0.9% Sodium Chloride 1000 ml [Nss] 1,000 ml IV BOLUS
HYDROmorphone [Dilaudid] 1 mg IV NOW STA
08/15/24 08:42
Complete Blood Count/With Diff Urgent
Comprehensive Metabolic Panel Urgent
Lipase Urgent
08/15/24 09:33
Ketorolac [Toradol] 15 mg IV NOW STA
08/15/24 Lunch
Regular
At Your Request: Full Participation
08/15/24 11:16
Admit/Transfer Patient As Directed
Co-Sign Provider:
Level of Care: Inpatient admission
Assign to:: Medical/Surgical
Physician / Group: Rafia Garcia - [facility]
Diagnosis: Intractable, back/pelvis pain from metastatic cancer
Reason for Hospitalization: Intractable, back/pelvis pain from metastatic cancer - IV pain meds
Expected length of stay greater than two midnights?: Yes
ELOS- Estimated Length of Stay in days: 2
I certify the patient meets the requirements for IP care: Yes
PRN Pain Medication Management As Directed
May give lesser potent ordered pain med per pt: Yes
preference::
Protocol:: Medication orders for pain may be administered in a
manner that supports deferring to patient preference
when the pt is:
- Requesting an ordered lesser potent pain medication.
Least to most potent pain medications are defined
as: acetaminophen < NSAID < tramadol < opioids
(morphine, oxycodone, hydromorphone).
- Requesting a lesser dose of the same medication IF
ORDERED.
- Requesting a less intrusive route of administration
if both routes are prescribed by the provider (PO <
IV).
08/15/24 11:17
Code Status As Directed
Resuscitation Status: Full Code
08/15/24 12:53
Bisacodyl [Dulcolax] 10 mg RECTAL [id number] PRN
Docusate W/Senna [Senokot-S] 1 tablet PO BIDPRN PRN
HYDROmorphone [Dilaudid] 0.5 mg IV Q3HPRN PRN
HYDROmorphone [Dilaudid] 1 mg IV Q3HPRN PRN
Ondansetron Injectable [Zofran] 4 mg IV Q6HPRN PRN
Polyethylene Glycol Powder [Miralax] 17 grams PO DAILYPRN PRN
08/15/24 12:53
Activity As Directed
Activity Level: As Tolerated
Vital Signs As Directed
Frequency: Per unit guidelines
Ot Eval And Treat Routine
Pt Eval And Treat Routine
Activity Level: As Tolerated
DX Deep Vein Thrombosis Video Routine
08/15/24 18:00
Enoxaparin Sodium [Lovenox] 40 mg SC QPM
08/15/24 20:00
Docusate W/Senna [Senokot-S] 1 tablet PO BID
Memantine HCl [Namenda] 5 mg PO BID
08/16/24 06:00
Complete Blood Count/No Diff IN AM
Comprehensive Metabolic Panel IN AM
Ferritin IN AM
Iron IN AM
Total Iron Binding IN AM
Vitamin B12 IN AM
Levothyroxine [Synthroid] 75 mcg PO DAILY@0600
08/16/24 08:00
Dexamethasone [Decadron] 4 mg PO DAILY
Lactulose [Duphalac/Chronulac] 20 grams PO DAILY
08/16/24 12:00
Nebivolol HCl [Bystolic] 5 mg PO DAILY@1200
08/17/24 06:00
Complete Blood Count/No Diff IN AM
Comprehensive Metabolic Panel IN AM
08/18/24 06:00
Complete Blood Count/No Diff IN AM
Comprehensive Metabolic Panel IN AM
Abnormal Lab Results
08/15/24
08:42
WBC 13.8 H 10^3/uL
(4.8-10.8)
RBC 3.25 L 10^6/uL
(4.20-5.40)
Hgb 9.9 L g/dL
(12.0-16.0)
Hct 29.5 L %
(37.0-47.0)
Plt Count 451 H 10^3/uL
(130-400)
Abs Immat Gran (auto) 0.2 H 10^3/uL
(0-0.05)
Absolute Neuts (auto) 11.7 H 10^3/uL
(1.4-6.5)
Absolute Lymphs (auto) 0.4 L 10^3/uL
(1.2-3.4)
Absolute Monos (auto) 1.5 H 10^3/uL
(0.1-0.6)
Immature Gran % 1.3 H %
(0-0.5)
Neutrophils % 84.8 H %
(42.2-75.2)
Lymphocytes % 3.1 L %
(20.5-51.1)
Monocytes % 10.5 H %
(1.7-9.3)
Sodium 132 L mmol/L
(135-145)
BUN 28 H mg/dl
(7-17)
Glucose 116 H mg/dl
(70-99)
AST 263 H U/L
(14-36)
Alkaline Phosphatase 505 H U/L
(38-126)
08/15/24 08:42
08/15/24 08:42
Vital Signs
Initial and Last Documented VS:
Initial Vital Signs
Temp Pulse Resp BP Pulse Ox
97.6 F 79 20 114/76 99
08/15/24 07:39 08/15/24 07:39 08/15/24 07:39 08/15/24 07:39 08/15/24 07:39
Last Documented Vital Signs
Temp Pulse Resp BP Pulse Ox
97.9 F 62 20 122/74 100
08/15/24 13:08 08/15/24 13:08 08/15/24 13:08 08/15/24 13:08 08/15/24 14:12
MDM/Problems Addressed
Differential Diagnosis Includes:
Patient with progressive severe low back pelvic and upper leg pain. This has been an ongoing pain that she is required high doses of OxyContin. However this is now not working. Symptoms got significantly worse the last few days. She has had long
MRI evaluations done over this few days. Clinically and denies acute neurologic symptoms. Exam is stable although clearly very uncomfortable. Pain management review MRIs very very likely will need admission for pain management. Heme-onc
contacted. I asked radiology to read the thoracic MRI.
*Pulse Oximetry
SaO2: 99
Oxygen Mode of Delivery: Room air
Patient hypoxic: no
*Critical Care Note
Total Time (30-74mins, 75-104mins- exclusive of procedures): Not Applicable
Update Note
Update Note:
0830... Reviewed MRI of cervical and lumbar spine. Thoracic spine has not been read from last night. I asked radiology to read it.
0920... Patient appears much more comfortable although states the pain is still [address] findings with patient. Oncology also updated patient states she does not think she can take NSAIDs because of her liver. I do not see this as
a contraindication. Discussed with heme-onc. Awaiting BUN and creatinine.
ED Attending Note
-
Portions of this chart may have been created with voice recognition software.� Occasional wrong word or��sound alike� substitutions may have occurred due to the inherent limitations of voice recognition software.
Discharge Plan
Departure
Patient Disposition: Admit
Date of Disposition: 08/15/24
Time of Disposition: 09:20
Presentation/result/management discussed w/ accepting MD/DO: Good year
Discharge Problem:
Intractable pain, T8 compression fracture, history of metastatic CA
Interventions
Interventions:
*Risk Screen - Suicide Last Done: 08/15/24 07:39
*General Assessment Last Done: 08/15/24 08:45
*Neglect/Abuse Screening Last Done: 08/15/24 07:39
*ED- Fall Risk Assessment Last Done: 08/15/24 08:45
*ED COVID-19 Vaccine History Last Done: 08/15/24 08:45
*Nursing Disposition Last Done: 08/15/24 12:50
Discharge Date and Time
Discharge Date/Time: 08/15/24 12:51
[2024-08-15] MEDS: DILAUDID 1 MG IV ×4 (08:42→19:13)
[2024-08-15] MEDS: NSS 1000 IV (08:45)
[2024-08-15 08:58] LABS: Hematocrit 29.5 % (37.0-47.0); Hemoglobin 9.9 g/dL (12.0-16.0); Mean Corp Hgb Conc. 33.6 g/dL (33.0-37.0); Mean Corpuscular Volume 90.8 fL (81.0-99.0); Nucleated Red Blood Cells % 0 %; Platelet Count 451 10^3/uL (130-400); Red Cell Dist. Width 12.8 % (11.5-14.5)
[2024-08-15 09:23] LABS: ALT (SGPT) 31 U/L (0-35); AST (SGOT) 263 U/L (14-36); Albumin 3.8 g/dl (3.5-5.0); Alkaline Phosphatase 505 U/L (38-126); Blood Urea Nitrogen 28 mg/dl (7-17); Calcium 9.9 mg/dl (8.4-10.2); Carbon Dioxide 27 mmol/L (22-30); Chloride 99 mmol/L (98-107); Estimated Creatinine Clearance 80 ml/min; Glucose 116 mg/dl (70-99); Lipase 91 U/L (23-300); Potassium 4.5 mmol/L (3.5-5.1); Sodium 132 mmol/L (135-145); Total Protein 6.7 g/dl (6.3-8.2); eGFR > 60.00
[2024-08-15] MEDS: TORADOL 15 MG IV ×2 (09:46→21:33)
--- NOTE | 2024-08-15 11:09 | HPS.HSE ---
Addendum entered and electronically signed by Rafia Garcia MD 08/15/24 13:35:
correction: now* transformed into small cell cancer
Original Note:
Family Physician
-
Family Physician: Gregoria Rodriges
Chief Complaint
-
back pain
History of Present Illness
39 y/o F hx of metastatic breast (not transformed into small cell cancer) - s/p XRT and chemo/immunotherapy (none currently) presents to ER for acute on chronic pain. She has experienced back/pelvis and leg pains for several months related to her
cancer and is taking Oxycontin/oxycodone prn. She reports increasing pain in the past 3-4 days in her lower back, prompting her to take additional oxycodone without relief. She feels like her recent MRI studies of her spine might have also
exacerbated her back pain. Additionally she is generally weak but denies focal weakness. Denies any bowel/bladder incontinence. Does reports constipation from pain meds at times.
Medical History
Past Medical History
Past Medical History: Reports Other (Cancer (Metastatic breast CA/small cell CA) and Other (Kidney stones, hypertension))
Past Surgical History: Reports None
Social History
Tobacco: Non-smoker
Alcohol: None
Living: With Family
Family History
Family History: Not pertinent
Allergies / Home Medications
Allergies reflects when Allergies were last updated in [facility].
Home Medications with original date entered in [facility]
Allergy/Medication List:
Allergies
Allergy/AdvReac Type Severity Reaction Status Date / Time
adhesive tape Allergy rash;rednes Verified 08/15/24 07:39
s
pollen extracts Allergy seasonal Verified 08/15/24 07:39
allegeries
venom-honey bee Allergy Swelling Verified 08/15/24 07:39
Home Medications
lactulose 10 gram/15 mL oral solution 15 - 30 ml PO DAILY Constipation 02/29/24
morphine 15 mg tablet,extended release 15 mg PO Q12H Pain 02/29/24
oxycodone 10 mg tablet 10 - 20 mg PO Q4HPRN PRN pain 02/29/24
carboplatin 1 unit IV .[id number] 03/04/24
etoposide 1 unit IV .[id number] 03/04/24
dexamethasone 4 mg tablet 4 mg PO DAILY 08/15/24
levothyroxine 75 mcg tablet 75 mcg PO DAILY 08/15/24
memantine 5 mg tablet 5 mg PO BID 08/15/24
nebivolol 5 mg tablet 5 mg PO .NOON 08/15/24
Review of Systems
-
A 12 point ROS was completed and negative except as noted: Yes
Physical Exam
Vital Signs
Vital Signs
Temp Pulse Resp BP Pulse Ox
97.6 F 72 17 109/76 98
08/15/24 07:39 08/15/24 09:00 08/15/24 09:00 08/15/24 08:45 08/15/24 08:45
Physical Exam
General: Appears in Distress and Pain
HEENT: NormoCephalic and Anicteric
Respiratory: Clear; No Wheezes or Rales
Cardiac: S1/S2 and Regular Rhythm
GI: Soft and Non Tender
Musculoskeletal: Other (thoraco-lumbar tenderness to palpation, no obvious masses)
Neuro: AO x 3
Psych: Calm
Laboratory Results
-
08/15/24 08:42
08/15/24 08:42
Laboratory Results
Total Bilirubin 0.6 mg/dl (0.2-1.3) 08/15/24 08:42
AST 263 U/L (14-36) H 08/15/24 08:42
ALT 31 U/L (0-35) 08/15/24 08:42
Alkaline Phosphatase 505 U/L (38-126) H 08/15/24 08:42
Lipase 91 U/L (23-300) 08/15/24 08:42
Data Reviewed
-
MRI: Report Reviewed by me
Lab Data: Labs Reviewed by me
Impression/Plan
-
Assessment:
Intractable, back/pelvis pain from metastatic cancer
- patient relying on higher/escalating doses of oxycodone without relief. has previously had morphine with GI side effects
- MRI studies with osseous metastatic disease, no evidence of cauda equina or acute spinal issue
- will start with IV Dilaudid prn and eventually transition PO Dilaudid
- hold off home Oxycodone for now
- Noted history of constipation; will continue Lactulose daily, add senna. monitor BMs
- PT/OT as able
metastatic breast (not transformed into small cell cancer) - s/p XRT and chemo/immunotherapy (none currently)
- followed by Dr. Wesley Geronimo
- next chemo planned 08/22/24
- continue Decadron
Hypothyroidism - on replacement
DVT ppx: Lovenox
Code: Full
--- NOTE | 2024-08-15 12:49 | EDRN ---
Patient taken to room 2125 on stretcher by instructor adjunct pharmacy technician.
--- NOTE | 2024-08-15 13:30 | PTCARENOTE ---
Received pt from ED, walked into room from stretcher w/ stand by assist. Generalized weakness and slow gate secondary to pain. VSS. Pt reports 8/10 hip and low back pain. 1mg IV Dilaudid given w/ good result. Admission and assessment as documented.
Will continue to monitor.
[2024-08-15] MEDS: LOVENOX 40 MG SC (17:50)
[2024-08-15] MEDS: NAMENDA 5 MG PO (20:55)
[2024-08-15] MEDS: SENOKOT-S 1 TABLET PO (20:56)
[2024-08-15] MEDS: DILAUDID 0.5 MG IV (21:17)
[2024-08-16] MEDS: DILAUDID 0.5 MG IV ×2 (00:37→04:24)
[2024-08-16] MEDS: DILAUDID 1 MG IV ×3 (02:16→10:25)
[2024-08-16] MEDS: TORADOL 15 MG IV (04:24)
[2024-08-16] MEDS: SYNTHROID 75 MCG PO (05:01)
[2024-08-16 05:11] LABS: Hematocrit 34.7 % (37.0-47.0); Hemoglobin 11.8 g/dL (12.0-16.0); Mean Corp Hgb Conc. 34.0 g/dL (33.0-37.0); Mean Corpuscular Volume 91.1 fL (81.0-99.0); Platelet Count 377 10^3/uL (130-400); Red Cell Dist. Width 12.9 % (11.5-14.5)
[2024-08-16 05:31] LABS: ALT (SGPT) 47 U/L (0-35); AST (SGOT) 234 U/L (14-36); Albumin 3.3 g/dl (3.5-5.0); Alkaline Phosphatase 596 U/L (38-126); Blood Urea Nitrogen 24 mg/dl (7-17); Calcium 9.2 mg/dl (8.4-10.2); Carbon Dioxide 25 mmol/L (22-30); Chloride 103 mmol/L (98-107); Estimated Creatinine Clearance 90 ml/min; Glucose 80 mg/dl (70-99); Iron 33 ug/dl (37-170); Potassium 4.5 mmol/L (3.5-5.1); Sodium 134 mmol/L (135-145); Total Protein 6.1 g/dl (6.3-8.2); eGFR > 60.00
[2024-08-16 05:39] LABS: Total Iron Binding Capacity 227 ug/dl (265-497)
[2024-08-16 06:20] LABS: Vitamin B12 620 pg/ml (239-931)
[2024-08-16 06:51] LABS: Ferritin 1140.0 ng/ml (6.24-137)
[2024-08-16 07:36] VITALS: BP 103/66
[2024-08-16 09:28] VITALS: BP 119/76; PULSE 88; O2SAT 98
[2024-08-16 09:32] VITALS: BP 119/76; PULSE 88; O2SAT 98
[2024-08-16] MEDS: SENOKOT-S 1 TABLET PO ×2 (09:36→19:50)
[2024-08-16] MEDS: DUPHALAC/CHRONULAC 20 GRAMS PO (09:36)
[2024-08-16] MEDS: DECADRON 4 MG PO (09:36)
[2024-08-16] MEDS: NAMENDA 5 MG PO ×2 (09:37→19:50)
[2024-08-16] MEDS: DURAGESIC 25 MCG/HR PATCH 1 PATCH TRANSDERM (09:37)
--- NOTE | 2024-08-16 11:34 | CON.ONC ---
Consultation
-
Date Consultation Requested: 08/16/24
Date Consultation Performed: 08/16/24
Requesting Provider: Dr Rafia Garcia
Performing Provider: Dr Taylor Saleh
Reason for Consultation: breast cancer, pain
Impression
Impression
pain, malignant - back/pelvis
metastatic breast cancer, small cell carcinoma
constipation
Plan
Plan
Started on Fentanyl this am (25mcg/hr). will increase to 50mcg/hr, since 25mcg/hr is roughly equal to the Oxycontin 20mg q12 she was taking [employer]
Continue dilaudid prn. Would consider adding oral dilaudid prn
Bowel regimen
Hopeful d/c 08/17 so she can resume RT on 08/18, and chemo on 08/22
Patient History
History of Present Illness
This is a 39yo F w/ metastatic breast cancer, transformed to small cell carcinoma, with recent disease progression and currently receiving whole brain radiation, who was admitted with increasing back and pelvic pain due to bone mets, not relieved by
outpatient Oxycodone 20q12 and oxycodone 20mg po prn. She also recently started Dex 4mg. She's scheduled to begin lurbinectidin (new chemo) on 08/22/24, after finishing WBXRT on 08/21.
Her pain is a bit better with dilaudid. Fentanyl patch 25mcg/hr, added this am
She notes constipation, managed with lactulose as outpatient
Past-Medical/Surgical History
as per the HPI
Patient Medication
�Medication �Instructions �Recorded �Confirmed �Last Taken �Type
lactulose 10 gram/15 mL oral 30 ml PO Q48H Constipation 02/29/24 08/15/24 08/14/24 History
solution
oxycodone 10 mg tablet 20 mg PO Q4HPRN PRN severe pain 02/29/24 08/15/24 08/15/24 History
dexamethasone 4 mg tablet 4 mg PO DAILY Anti-Inflammatory 08/15/24 08/15/24 08/14/24 History
levothyroxine 75 mcg tablet 75 mcg PO DAILY Thyroid 08/15/24 08/15/24 08/14/24 History
memantine 5 mg tablet 5 mg PO DIRECTED Mental 08/15/24 08/15/24 08/14/24 History
Health/Anxiety 10 mg
nebivolol 5 mg tablet 5 mg PO DAILY@1200 Blood Pressure 08/15/24 08/15/24 08/14/24 History
zolpidem 12.5 mg tablet,extended 6.25 mg PO HSPRN PRN sleep 08/15/24 08/15/24 Unknown History
release,multiphase (Ambien CR)
Active Medications
Generic Name Dose Route Start Last Admin
Trade Name Freq PRN Reason Stop Dose Admin
Bisacodyl 10 mg 08/15/24 12:53
Bisacodyl 10 Mg Rectal Suppository RECTAL 09/12/24 12:52
[id number] PRN
constipation
Dexamethasone 4 mg 08/16/24 08:00 08/16/24 09:36
Dexamethasone 4 Mg Tablet PO 09/13/24 07:59 4 mg
DAILY PACO Administration
Enoxaparin Sodium 40 mg 08/15/24 18:00 08/15/24 17:50
Enoxaparin Sodium 40 Mg/0.4 Ml Syringe SC 09/12/24 17:59 40 mg
QPM PACO Administration
Fentanyl 1 patch 08/16/24 12:00
Fentanyl 50 Mcg/Hr Patch TRANSDERM 08/30/24 11:59
Q72H PACO
Heparin Sodium (Porcine) 500 unit 08/15/24 13:45 08/16/24 10:24
Heparin Flush Pf (100 Unit/Ml) 5 Ml Syringe IV 09/12/24 13:44 500 unit
PRN PRN Administration
SC PORT FLUSH
Hydromorphone HCl 0.5 mg 08/15/24 12:53 08/16/24 04:24
Hydromorphone 0.5 Mg/0.5 Ml Syringe IV 08/29/24 12:52 0.5 mg
Q3HPRN PRN Administration
mod-severe pain/breakthough
Hydromorphone HCl 1 mg 08/15/24 12:53 08/16/24 10:25
Hydromorphone 1 Mg/Ml Carpuject IV 08/29/24 12:52 1 mg
Q3HPRN PRN Administration
severe pain, 8-10 scale
Lactulose 20 grams 08/16/24 08:00 08/16/24 09:36
Lactulose Solution (20 Grams/30 Ml) 30 Ml Cup PO 09/13/24 07:59 20 grams
DAILY PACO Administration
Levothyroxine Sodium 75 mcg 08/16/24 06:00 08/16/24 05:01
Levothyroxine 75 Mcg Tablet PO 09/13/24 05:59 75 mcg
DAILY@0600 PACO Administration
Memantine 5 mg 08/15/24 20:00 08/16/24 09:37
Memantine 10 Mg Tablet PO 09/12/24 19:59 5 mg
BID PACO Administration
Nebivolol 5 mg 08/16/24 12:00
Nebivolol Hcl 2.5 Mg Tablet PO 09/13/24 11:59
DAILY@1200 PACO
Ondansetron HCl 4 mg 08/15/24 12:53
Ondansetron 4 Mg/2 Ml Vial IV 09/12/24 12:52
Q6HPRN PRN
nausea and vomiting
Patch Removal 0 patch 08/19/24 09:00
Remove Fentanyl Patch REMOVE 09/02/24 08:59
Q72H PACO
Patch Removal 0 patch 08/16/24 11:45
Remove Fentanyl Patch REMOVE 08/30/24 11:44
Q72H PACO
Polyethylene Glycol 17 grams 08/15/24 12:53
Polyethylene Glycol Powder 17 Grams Packet PO 09/12/24 12:52
DAILYPRN PRN
constipation
Senna/Docusate Sodium 1 tablet 08/15/24 12:53
Docusate W/Senna (Elizabeth-Colace) Tablet PO 09/12/24 12:52
BIDPRN PRN
constipation
Senna/Docusate Sodium 1 tablet 08/15/24 20:00 08/16/24 09:36
Docusate W/Senna (Elizabeth-Colace) Tablet PO 09/12/24 19:59 1 tablet
BID PACO Administration
Sodium Chloride 0 flush 08/15/24 14:00
Sodium Chloride 0.9% (Flush) Syringe IV 09/12/24 13:59
PER PROTOCOL PACO
Review of Systems
-
All Other Systems: Not reviewed unless documented
Physical Exam
-
General: Well Developed, Well Nourished and No Apparent Distress
HEENT: Negative Jaundice
Neurology: Non Focal, No Lateralizing Symptoms and No Word Finding Difficulty
Psych: Calm and Intact Judgement/Insight
Labs
Lab Results
WBC 8.6 10^3/uL (4.8-10.8) 08/16/24 04:44
RBC 3.81 10^6/uL (4.20-5.40) L 08/16/24 04:44
Hgb 11.8 g/dL (12.0-16.0) L 08/16/24 04:44
Hct 34.7 % (37.0-47.0) L 08/16/24 04:44
MCV 91.1 fL (81.0-99.0) 08/16/24 04:44
MCH 31.0 pg (27.0-31.0) 08/16/24 04:44
MCHC 34.0 g/dL (33.0-37.0) 08/16/24 04:44
RDW 12.9 % (11.5-14.5) 08/16/24 04:44
Plt Count 377 10^3/uL (130-400) 08/16/24 04:44
MPV 10.0 fL (7.4-10.4) 08/16/24 04:44
Abs Immat Gran (auto) 0.2 10^3/uL (0-0.05) H 08/15/24 08:42
Absolute Neuts (auto) 11.7 10^3/uL (1.4-6.5) H 08/15/24 08:42
Absolute Lymphs (auto) 0.4 10^3/uL (1.2-3.4) L 08/15/24 08:42
Absolute Monos (auto) 1.5 10^3/uL (0.1-0.6) H 08/15/24 08:42
Absolute Eos (auto) 0.0 10^3/uL (0-0.7) 08/15/24 08:42
Absolute Basos (auto) 0.0 10^3/uL (0-0.2) 08/15/24 08:42
Immature Gran % 1.3 % (0-0.5) H 08/15/24 08:42
Neutrophils % 84.8 % (42.2-75.2) H 08/15/24 08:42
Lymphocytes % 3.1 % (20.5-51.1) L 08/15/24 08:42
Monocytes % 10.5 % (1.7-9.3) H 08/15/24 08:42
Eosinophils % 0.0 % (0-6) 08/15/24 08:42
Basophils % 0.3 % (0-2) 08/15/24 08:42
Creatinine 0.7 mg/dL (0.6-1.0) 08/16/24 04:44
Vital Signs
Vital Signs
Temp Pulse Resp BP Pulse Ox
97.7 F 73 16 103/66 100
08/16/24 07:36 08/16/24 07:36 08/15/24 23:24 08/16/24 07:36 08/16/24 07:36
--- NOTE | 2024-08-16 11:47 | CM ---
Reviewed the chart notes and spoke with the patient and parents at the bedside. The patient admitted for intractable back/pelvic pain from metastatic ca. The patient resides with her parents and daughters in a two story home with one step to
enter. The patient reports no DME or SNF, has had [facility] in past. Patient confirmed her pharmacy of choice is [facility] [address] [place]. CM continues to be available to patient/family and is monitoring medical plan for needs at discharge.
Plan: Discharge plans will depend on the patient's progress.
--- NOTE | 2024-08-16 12:25 | W.PN.HOSP.TC ---
Addendum entered and electronically signed by Rafia Garcia MD 08/17/24 08:50:
More than 30 minutes spent in discharge including
Final examination of the patient
Summarizing hospital stay
Instructions for continuing care to all relevant caregivers
Preparation of discharge records, prescriptions, and referral forms
Total time spent (in minutes): 41
Original Note:
Today's Communication/Plan
-
Fentanyl with PO Dilaudid prn for breakthrough
PT/OT
appreciate Oncology recs
Assessment / Plan
Assessment / Plan
Assessment:
Intractable, back/pelvis pain from metastatic cancer
- patient relying on higher/escalating doses of oxycodone without relief. has previously had morphine with GI side effects
- MRI studies with osseous metastatic disease, no evidence of cauda equina or acute spinal issue. new mild pathologic fracture of the T8 vertebral body and trace associated retropulsion
- trialed IV Dilaudid with suboptimal pain control
- will start Fentanyl 50mcg and use PO Dilaudid
- hold off home Oxycodone for now
- Noted history of constipation; will continue Lactulose daily, add senna. monitor BMs
- PT/OT as able
metastatic breast (not transformed into small cell cancer) - s/p XRT and chemo/immunotherapy (none currently)
- followed by Dr. Wesley Geronimo
- next chemo planned 08/22/24, Radiation next is 08/18
- continue Decadron
- appreciate Oncology recs
Hypothyroidism - on replacement
DVT ppx: Lovenox
Code: Full
Anticipated Discharge: Within 24 hours
Subjective/Interval History
-
Date of Service: August 16, 2024
no significant improvement with IV Dilaudid for pain control
Fentanyl patch started
Objective Data
-
Labs:
Laboratory Results
08/16/24
04:44
WBC 8.6
Hgb 11.8 L
Hct 34.7 L
Plt Count 377
Sodium 134 L
Potassium 4.5
Chloride 103
Carbon Dioxide 25
BUN 24 H
Creatinine 0.7
Glucose 80
Calcium 9.2
Total Bilirubin 0.7
AST 234 H
ALT 47 H
Alkaline Phosphatase 596 H
Vital Signs:
Vital Signs
Temp Pulse Resp BP Pulse Ox
97.7 F 73 16 103/66 100
08/16/24 07:36 08/16/24 07:36 08/15/24 23:24 08/16/24 07:36 08/16/24 07:36
I&O
08/15/24 08/16/24 08/17/24
06:59 06:59 06:59
Intake Total 1080 / 1080
Balance 1080 / 1080
Physical Exam
-
General: No Apparent Distress
HEENT: Normocephalic and Atraumatic
Respiratory: Negative Wheezes
Cardiac: Regular Rhythm and S1/S2
GI: Soft
Genito-urinary: No Costovertebral Tender
Neuro: AO x 3
Psych: Calm
Data Reviewed
-
Total Time Spent with Patient (in minutes): 42
Labs: Labs Reviewed by me
[2024-08-16] MEDS: REMOVE DURAGESIC PATCH 25 PATCH REMOVE (12:30)
[2024-08-16] MEDS: DURAGESIC 50 MCG/HR PATCH 1 PATCH TRANSDERM (12:35)
[2024-08-16] MEDS: DILAUDID 2 MG PO ×3 (13:33→21:50)
[2024-08-16 15:07] VITALS: BP 125/84
[2024-08-16] MEDS: LOVENOX 40 MG SC (17:33)
[2024-08-16 23:16] VITALS: BP 112/73
[2024-08-17] MEDS: DILAUDID 1 MG PO ×3 (00:16→06:32)
[2024-08-17] MEDS: DILAUDID 2 MG PO ×3 (01:51→11:04)
[2024-08-17] MEDS: SYNTHROID 75 MCG PO (03:19)
[2024-08-17 07:23] VITALS: BP 171/86
[2024-08-17] MEDS: TORADOL 15 MG IV (07:28)
[2024-08-17] MEDS: DILAUDID 2 MG IV ×2 (07:35→16:33)
--- NOTE | 2024-08-17 08:49 | W.DS.TRANS ---
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
-
Discharge Instructions:
Sleep Apnea Risk Low
Discharge Diagnosis/Procedures metastatic cancer with osseous metastasis, t8
fracture
Diet Regular
Activity As tolerated
Bathing Restrictions None
Instructions:
Stand-Alone Forms:
Changes to Home Medications: No
Discharge Medications:
DC Medications w/original date entered in [employer]
dexamethasone 4 mg tablet 4 mg PO DAILY Anti-Inflammatory 08/15/24
levothyroxine 75 mcg tablet 75 mcg PO DAILY Thyroid 08/15/24
memantine 5 mg tablet 5 mg PO DIRECTED Mental Health/Anxiety 08/15/24
nebivolol 5 mg tablet 5 mg PO DAILY@1200 Blood Pressure 08/15/24
zolpidem 12.5 mg tablet,extended release,multiphase (Ambien CR) 6.25 mg PO HSPRN PRN sleep 08/15/24
fentanyl 50 mcg/hr transdermal patch 1 patch transdermal Q72H #5 ea 08/17/24
hydromorphone 2 mg tablet 2 mg PO Q4H PRN Pain #60 tabs 08/17/24
ibuprofen 600 mg tablet 600 mg PO Q6HPRN PRN mild to low moderate pain #60 tabs 08/17/24
lactulose 10 gram/15 mL oral solution 30 ml PO DAILY Constipation #1,000 mL 08/17/24
pantoprazole 40 mg tablet,delayed release 40 mg PO DAILY #30 tabs 08/17/24
polyethylene glycol 3350 17 gram oral powder packet 17 g PO DAILYPRN PRN constipation #30 ea 08/17/24
sennosides 8.6 mg-docusate sodium 50 mg tablet 1 tab PO BIDPRN PRN constipation #60 tabs 08/17/24
Home Medication Changes
Pending Results: No
Total time spent discharging patient (in min): 41
[2024-08-17] MEDS: DECADRON 4 MG PO (09:13)
[2024-08-17] MEDS: NAMENDA 5 MG PO (09:13)
[2024-08-17] MEDS: DUPHALAC/CHRONULAC 20 GRAMS PO (09:13)
[2024-08-17] MEDS: PROTONIX 40 MG PO (09:13)
[2024-08-17] MEDS: SENOKOT-S 1 TABLET PO (09:13)
[2024-08-17 09:15] LABS: Hematocrit 29.1 % (37.0-47.0); Hemoglobin 9.8 g/dL (12.0-16.0); Mean Corp Hgb Conc. 33.7 g/dL (33.0-37.0); Mean Corpuscular Volume 92.4 fL (81.0-99.0); Platelet Count 399 10^3/uL (130-400); Red Cell Dist. Width 13.1 % (11.5-14.5)
[2024-08-17 09:59] LABS: ALT (SGPT) 50 U/L (0-35); AST (SGOT) 136 U/L (14-36); Albumin 3.2 g/dl (3.5-5.0); Alkaline Phosphatase 671 U/L (38-126); Blood Urea Nitrogen 16 mg/dl (7-17); Calcium 9.2 mg/dl (8.4-10.2); Carbon Dioxide 26 mmol/L (22-30); Chloride 100 mmol/L (98-107); Estimated Creatinine Clearance 90 ml/min; Glucose 102 mg/dl (70-99); Potassium 3.7 mmol/L (3.5-5.1); Sodium 130 mmol/L (135-145); Total Protein 5.9 g/dl (6.3-8.2); eGFR > 60.00
--- NOTE | 2024-08-17 10:57 | W.PN.HOSP.TC ---
Today's Communication/Plan
-
dc home
Assessment / Plan
Assessment / Plan
Assessment:
Intractable, back/pelvis pain from metastatic cancer
- patient relying on higher/escalating doses of oxycodone without relief. has previously had morphine with GI side effects
- MRI studies with osseous metastatic disease, no evidence of cauda equina or acute spinal issue. new mild pathologic fracture of the T8 vertebral body and trace associated retropulsion
- DC on Fentanyl, PO dilaudid, prn Motrin + PPI/bowel regimen
metastatic breast (not transformed into small cell cancer) - s/p XRT and chemo/immunotherapy (none currently)
- followed by Dr. Wesley Geronimo
- next chemo planned 08/22/24, Radiation next is 08/18
- continue Decadron
- appreciate Oncology recs
Hypothyroidism - on replacement
DVT ppx: Lovenox
Code: Full
More than 30 minutes spent in discharge including
Final examination of the patient
Summarizing hospital stay
Instructions for continuing care to all relevant caregivers
Preparation of discharge records, prescriptions, and referral forms
Total time spent (in minutes):41
Anticipated Discharge: Today
Subjective/Interval History
-
Date of Service: August 17, 2024
pain suboptimal on prior dilaudid doses
Objective Data
-
Labs:
Laboratory Results
08/17/24
09:09
WBC 12.3 H
Hgb 9.8 L
Hct 29.1 L
Plt Count 399
Sodium 130 L
Potassium 3.7
Chloride 100
Carbon Dioxide 26
BUN 16
Creatinine 0.7
Glucose 102 H
Calcium 9.2
Total Bilirubin 1.0
AST 136 H
ALT 50 H
Alkaline Phosphatase 671 H
Vital Signs:
Vital Signs
Temp Pulse Resp BP Pulse Ox
98.6 F 95 18 171/86 100
08/17/24 07:23 08/17/24 07:23 08/17/24 07:23 08/17/24 07:23 08/17/24 07:23
I&O
08/16/24 08/17/24 08/18/24
06:59 06:59 06:59
Intake Total 1080 / 1080 1140 / 1140
Balance 1080 / 1080 1140 / 1140
Physical Exam
-
General: No Apparent Distress
HEENT: Normocephalic and Atraumatic
Respiratory: Negative Wheezes
Cardiac: Regular Rhythm and S1/S2
GI: Soft
Genito-urinary: No Costovertebral Tender
Neuro: AO x 3
Psych: Calm
Data Reviewed
-
Total Time Spent with Patient (in minutes): 41
Labs: Labs Reviewed by me
--- NOTE | 2024-08-17 10:57 | W.PN.ONC ---
Today's Communication / Plan
-
Pain more manageable
for d/c on Fentanyl 50mcg/hr, dilaudid 2mg po prn, NSAIDs
bowel regimen
WBXRT to resume 08/18, through 08/21, and new chemo regimen to start 08/22
okay for d/c home today
Impression
Impression
pain, malignant - back/pelvis
metastatic breast cancer, small cell carcinoma
constipation
Plan
Plan
Pain more manageable
for d/c on Fentanyl 50mcg/hr, dilaudid 2mg po prn, NSAIDs
bowel regimen
WBXRT to resume 08/18, through 08/21, and new chemo regimen to start 08/22
okay for d/c home today
Subjective/Objective
Subjective/Objective
pain more manageable, feels ready for d/c
Vital Signs:
Vital Signs
Temp Pulse Resp BP Pulse Ox
98.6 F 95 18 171/86 100
08/17/24 07:23 08/17/24 07:23 08/17/24 07:23 08/17/24 07:23 08/17/24 07:23
Lab Results:
Laboratory Data
WBC 12.3 10^3/uL (4.8-10.8) H 08/17/24 09:09
Hgb 9.8 g/dL (12.0-16.0) L 08/17/24 09:09
Plt Count 399 10^3/uL (130-400) 08/17/24 09:09
eGFR > 60.00 08/17/24 09:09
Orders
Orders
Orders From Last 24 Hours
08/16/24 11:45
REMOVE fentaNYL PATCH [Remove Duragesic Patch] See Dose Instructions REMOVE Q72H
08/16/24 12:00
FentaNYL 50 MCG/HR PATCH [Duragesic 50 Mcg/Hr Patch] 1 patch TRANSDERM Q72H
[2024-08-17 15:21] VITALS: BP 109/65
== END 2024-08-17 17:15 | disposition home or self-care (01) | DRG 948 ==
LOC: 2 NORTH 11:42
PROVIDERS: ADMITTING PHYSICIAN Internal Medicine; CONSULT PHYSICIAN Internal Medicine Hematology & Oncology; EMERGENCY PHYSICIAN Emergency Medicine; FAMILY PHYSICIAN Family Medicine
DX: G89.3 Neoplasm related pain (acute) (chronic) (principal); C79.51 Secondary malignant neoplasm of bone; C50.919 Malignant neoplasm of unspecified site of unspecified female breast; E03.9 Hypothyroidism, unspecified
CPT/HCPCS: 80053; 82607; 82728; 83540; 83550; 83690; 85025; 85027; 96361; 96374; 96375; 97162; 97166; 99284

== ENCOUNTER → 2024-08-28 16:23 | Outpatient (REF) | payer OTHER, SELFPAY ==
[2024-08-28 09:09] LABS: Hematocrit 34.0 % (37.0-47.0); Hemoglobin 11.2 g/dL (12.0-16.0); Mean Corp Hgb Conc. 32.9 g/dL (33.0-37.0); Mean Corpuscular Volume 90.9 fL (81.0-99.0); Platelet Count 350 10^3/uL (130-400); Red Cell Dist. Width 13.5 % (11.5-14.5)
[2024-08-28 09:34] LABS: ALT (SGPT) 36 U/L (0-35); AST (SGOT) 57 U/L (14-36); Albumin 3.9 g/dl (3.5-5.0); Alkaline Phosphatase 645 U/L (38-126); Blood Urea Nitrogen 18 mg/dl (7-17); Calcium 9.9 mg/dl (8.4-10.2); Carbon Dioxide 25 mmol/L (22-30); Chloride 104 mmol/L (98-107); Glucose 84 mg/dl (70-99); Magnesium 2.0 mg/dl (1.6-2.3); Potassium 4.3 mmol/L (3.5-5.1); Sodium 136 mmol/L (135-145); Total Protein 6.8 g/dl (6.3-8.2); eGFR > 60.00
== END ==
LOC: OIDL 16:23
PROVIDERS: ATTENDING PHYSICIAN Internal Medicine Hematology & Oncology
DX: C50.312 Malignant neoplasm of lower-inner quadrant of left female breast (principal); C77.3 Secondary and unspecified malignant neoplasm of axilla and upper limb lymph nodes; G89.3 Neoplasm related pain (acute) (chronic); C7A.8 Other malignant neuroendocrine tumors; C79.51 Secondary malignant neoplasm of bone; E03.9 Hypothyroidism, unspecified; C7A.1 Malignant poorly differentiated neuroendocrine tumors
CPT/HCPCS: 80053; 83735; 84439; 84443; 85025

== ENCOUNTER → 2024-09-01 11:35 | Outpatient (REF) | payer OTHER, SELFPAY ==
[2024-09-01 13:03] LABS: ALT (SGPT) 24 U/L (0-35); AST (SGOT) 31 U/L (14-36); Albumin 3.5 g/dl (3.5-5.0); Alkaline Phosphatase 440 U/L (38-126); Blood Urea Nitrogen 14 mg/dl (7-17); Calcium 8.7 mg/dl (8.4-10.2); Carbon Dioxide 23 mmol/L (22-30); Chloride 106 mmol/L (98-107); Glucose 78 mg/dl (70-99); Magnesium 1.7 mg/dl (1.6-2.3); Potassium 4.2 mmol/L (3.5-5.1); Sodium 135 mmol/L (135-145); Total Protein 6.2 g/dl (6.3-8.2); eGFR > 60.00
[2024-09-01 14:11] LABS: Hematocrit 27.7 % (37.0-47.0); Hemoglobin 9.1 g/dL (12.0-16.0); Mean Corp Hgb Conc. 32.9 g/dL (33.0-37.0); Mean Corpuscular Volume 89.9 fL (81.0-99.0); Nucleated Red Blood Cells % 0 %; Platelet Count 165 10^3/uL (130-400); Red Cell Dist. Width 13.7 % (11.5-14.5)
== END ==
LOC: OIDL 11:35
PROVIDERS: ATTENDING PHYSICIAN Internal Medicine Hematology & Oncology
DX: C50.312 Malignant neoplasm of lower-inner quadrant of left female breast (principal); C77.3 Secondary and unspecified malignant neoplasm of axilla and upper limb lymph nodes; G89.3 Neoplasm related pain (acute) (chronic); C7A.8 Other malignant neuroendocrine tumors; C79.51 Secondary malignant neoplasm of bone; C78.7 Secondary malignant neoplasm of liver and intrahepatic bile duct; E03.9 Hypothyroidism, unspecified; C7A.1 Malignant poorly differentiated neuroendocrine tumors
CPT/HCPCS: 80053; 83735; 85025

== ENCOUNTER → 2024-09-04 09:15 | Outpatient (REF) | payer OTHER, SELFPAY ==
[2024-09-04 09:19] LABS: Hematocrit 29.5 % (37.0-47.0); Hemoglobin 9.6 g/dL (12.0-16.0); Mean Corp Hgb Conc. 32.5 g/dL (33.0-37.0); Mean Corpuscular Volume 91.6 fL (81.0-99.0); Platelet Count 129 10^3/uL (130-400); Red Cell Dist. Width 14.8 % (11.5-14.5)
[2024-09-04 10:13] LABS: ALT (SGPT) 21 U/L (0-35); AST (SGOT) 31 U/L (14-36); Albumin 3.8 g/dl (3.5-5.0); Alkaline Phosphatase 412 U/L (38-126); Blood Urea Nitrogen 16 mg/dl (7-17); Calcium 9.4 mg/dl (8.4-10.2); Carbon Dioxide 28 mmol/L (22-30); Chloride 102 mmol/L (98-107); Glucose 77 mg/dl (70-99); Magnesium 1.7 mg/dl (1.6-2.3); Potassium 4.1 mmol/L (3.5-5.1); Sodium 136 mmol/L (135-145); Total Protein 6.5 g/dl (6.3-8.2); eGFR > 60.00
== END ==
LOC: OIDL 09:15
PROVIDERS: ATTENDING PHYSICIAN Internal Medicine Hematology & Oncology
DX: C50.312 Malignant neoplasm of lower-inner quadrant of left female breast (principal); C77.3 Secondary and unspecified malignant neoplasm of axilla and upper limb lymph nodes; G89.3 Neoplasm related pain (acute) (chronic); C7A.8 Other malignant neuroendocrine tumors; C79.51 Secondary malignant neoplasm of bone; C78.7 Secondary malignant neoplasm of liver and intrahepatic bile duct; E03.9 Hypothyroidism, unspecified
CPT/HCPCS: 80053; 83735; 85025

== ENCOUNTER → 2024-09-11 09:13 | Outpatient (REF) | payer OTHER, SELFPAY ==
[2024-09-11 09:15] LABS: Hematocrit 31.8 % (37.0-47.0); Hemoglobin 10.4 g/dL (12.0-16.0); Mean Corp Hgb Conc. 32.7 g/dL (33.0-37.0); Mean Corpuscular Volume 91.9 fL (81.0-99.0); Platelet Count 271 10^3/uL (130-400); Red Cell Dist. Width 15.7 % (11.5-14.5)
[2024-09-11 10:01] LABS: ALT (SGPT) 22 U/L (0-35); AST (SGOT) 46 U/L (14-36); Albumin 4.2 g/dl (3.5-5.0); Alkaline Phosphatase 444 U/L (38-126); Blood Urea Nitrogen 16 mg/dl (7-17); Calcium 9.2 mg/dl (8.4-10.2); Carbon Dioxide 26 mmol/L (22-30); Chloride 104 mmol/L (98-107); Glucose 91 mg/dl (70-99); Magnesium 1.8 mg/dl (1.6-2.3); Potassium 4.4 mmol/L (3.5-5.1); Sodium 137 mmol/L (135-145); Total Protein 7.0 g/dl (6.3-8.2); eGFR > 60.00
== END ==
LOC: OIDL 09:13
PROVIDERS: ATTENDING PHYSICIAN Internal Medicine Hematology & Oncology
DX: C50.312 Malignant neoplasm of lower-inner quadrant of left female breast (principal); C77.3 Secondary and unspecified malignant neoplasm of axilla and upper limb lymph nodes; G89.3 Neoplasm related pain (acute) (chronic); C7A.8 Other malignant neuroendocrine tumors; C79.51 Secondary malignant neoplasm of bone; C78.7 Secondary malignant neoplasm of liver and intrahepatic bile duct; E06.9 Thyroiditis, unspecified
CPT/HCPCS: 80053; 83735; 85025

== ENCOUNTER → 2024-10-20 09:23 | Outpatient (REF) | payer OTHER, SELFPAY ==
[2024-10-20 09:20] LABS: Glucose 86 mg/dl (70-99)
== END ==
LOC: PET 09:23
PROVIDERS: ATTENDING PHYSICIAN Internal Medicine Hematology & Oncology
DX: C50.312 Malignant neoplasm of lower-inner quadrant of left female breast (principal); C77.3 Secondary and unspecified malignant neoplasm of axilla and upper limb lymph nodes; G89.3 Neoplasm related pain (acute) (chronic); C7A.8 Other malignant neuroendocrine tumors; C79.51 Secondary malignant neoplasm of bone; C78.7 Secondary malignant neoplasm of liver and intrahepatic bile duct; E03.9 Hypothyroidism, unspecified
CPT/HCPCS: 36415; 82947

== ENCOUNTER → 2024-11-05 15:41 | Outpatient (REF) | payer OTHER, SELFPAY ==
[2024-11-05 10:49] LABS: Hematocrit 32.5 % (37.0-47.0); Hemoglobin 11.0 g/dL (12.0-16.0); Mean Corp Hgb Conc. 33.8 g/dL (33.0-37.0); Mean Corpuscular Volume 96.4 fL (81.0-99.0); Platelet Count 240 10^3/uL (130-400); Red Cell Dist. Width 20.7 % (11.5-14.5)
[2024-11-05 11:56] LABS: ALT (SGPT) 29 U/L (0-35); AST (SGOT) 45 U/L (14-36); Albumin 4.6 g/dl (3.5-5.0); Alkaline Phosphatase 267 U/L (38-126); Blood Urea Nitrogen 15 mg/dl (7-17); Calcium 10.2 mg/dl (8.4-10.2); Carbon Dioxide 26 mmol/L (22-30); Chloride 100 mmol/L (98-107); Glucose 80 mg/dl (70-99); Potassium 4.4 mmol/L (3.5-5.1); Sodium 135 mmol/L (135-145); Total Protein 7.4 g/dl (6.3-8.2); eGFR > 60.00
== END ==
LOC: OIDL 15:41
PROVIDERS: ATTENDING PHYSICIAN Internal Medicine Hematology & Oncology
DX: C50.312 Malignant neoplasm of lower-inner quadrant of left female breast (principal); C77.3 Secondary and unspecified malignant neoplasm of axilla and upper limb lymph nodes; G89.3 Neoplasm related pain (acute) (chronic); C7A.8 Other malignant neuroendocrine tumors; C79.51 Secondary malignant neoplasm of bone; C78.7 Secondary malignant neoplasm of liver and intrahepatic bile duct; E03.9 Hypothyroidism, unspecified
CPT/HCPCS: 80053; 85025

== ENCOUNTER → 2024-11-26 16:38 | Outpatient (REF) | payer OTHER, SELFPAY ==
[2024-11-26 12:00] LABS: Hematocrit 29.7 % (37.0-47.0); Hemoglobin 9.9 g/dL (12.0-16.0); Mean Corp Hgb Conc. 33.3 g/dL (33.0-37.0); Mean Corpuscular Volume 101.4 fL (81.0-99.0); Platelet Count 203 10^3/uL (130-400); Red Cell Dist. Width 18.3 % (11.5-14.5)
[2024-11-26 12:48] LABS: ALT (SGPT) 21 U/L (0-35); AST (SGOT) 47 U/L (14-36); Albumin 4.6 g/dl (3.5-5.0); Alkaline Phosphatase 210 U/L (38-126); Blood Urea Nitrogen 13 mg/dl (7-17); Calcium 9.8 mg/dl (8.4-10.2); Carbon Dioxide 26 mmol/L (22-30); Chloride 103 mmol/L (98-107); Glucose 76 mg/dl (70-99); Potassium 4.2 mmol/L (3.5-5.1); Sodium 137 mmol/L (135-145); Total Protein 7.2 g/dl (6.3-8.2); eGFR > 60.00
[2024-11-26 13:18] LABS: TSH 29.60 uIU/ml (0.47-4.68)
== END ==
LOC: OIDL 16:38
PROVIDERS: ATTENDING PHYSICIAN Internal Medicine Hematology & Oncology
DX: C50.312 Malignant neoplasm of lower-inner quadrant of left female breast (principal); C77.3 Secondary and unspecified malignant neoplasm of axilla and upper limb lymph nodes; G89.3 Neoplasm related pain (acute) (chronic); C7A.8 Other malignant neuroendocrine tumors; C79.51 Secondary malignant neoplasm of bone; C78.7 Secondary malignant neoplasm of liver and intrahepatic bile duct; E03.9 Hypothyroidism, unspecified; C7A.1 Malignant poorly differentiated neuroendocrine tumors
CPT/HCPCS: 80053; 84443; 85025

== ENCOUNTER → 2024-12-03 15:03 | Outpatient (REF) | payer OTHER, SELFPAY ==
[2024-12-03 12:22] LABS: Hematocrit 31.1 % (37.0-47.0); Hemoglobin 10.3 g/dL (12.0-16.0); Mean Corp Hgb Conc. 33.1 g/dL (33.0-37.0); Mean Corpuscular Volume 103.0 fL (81.0-99.0); Platelet Count 333 10^3/uL (130-400); Red Cell Dist. Width 16.9 % (11.5-14.5)
[2024-12-03 14:08] LABS: ALT (SGPT) 23 U/L (0-35); AST (SGOT) 66 U/L (14-36); Albumin 4.6 g/dl (3.5-5.0); Alkaline Phosphatase 238 U/L (38-126); Blood Urea Nitrogen 12 mg/dl (7-17); Calcium 9.8 mg/dl (8.4-10.2); Carbon Dioxide 27 mmol/L (22-30); Chloride 102 mmol/L (98-107); Glucose 92 mg/dl (70-99); Potassium 4.3 mmol/L (3.5-5.1); Sodium 134 mmol/L (135-145); Total Protein 7.3 g/dl (6.3-8.2); eGFR > 60.00
== END ==
LOC: OIDL 15:03
PROVIDERS: ATTENDING PHYSICIAN Internal Medicine Hematology & Oncology
DX: C50.312 Malignant neoplasm of lower-inner quadrant of left female breast (principal); C77.3 Secondary and unspecified malignant neoplasm of axilla and upper limb lymph nodes; G89.3 Neoplasm related pain (acute) (chronic); C7A.8 Other malignant neuroendocrine tumors; C79.51 Secondary malignant neoplasm of bone; C78.7 Secondary malignant neoplasm of liver and intrahepatic bile duct; E03.9 Hypothyroidism, unspecified; C7A.1 Malignant poorly differentiated neuroendocrine tumors
CPT/HCPCS: 80053; 84439; 84443; 85025

== ENCOUNTER 2024-12-29 11:28 | Outpatient (RCR) | payer OTHER, SELFPAY ==
[2024-12-29 11:42] VITALS: BP 103/69
[2024-12-29 11:55] LABS: Hematocrit 27.1 % (37.0-47.0); Hemoglobin 9.3 g/dL (12.0-16.0); Mean Corp Hgb Conc. 34.3 g/dL (33.0-37.0); Mean Corpuscular Volume 101.5 fL (81.0-99.0); Platelet Count 249 10^3/uL (130-400); Red Cell Dist. Width 14.8 % (11.5-14.5)
[2024-12-29 12:39] LABS: ALT (SGPT) 32 U/L (0-35); AST (SGOT) 74 U/L (14-36); Albumin 4.2 g/dl (3.5-5.0); Alkaline Phosphatase 282 U/L (38-126); Blood Urea Nitrogen 11 mg/dl (7-17); Calcium 9.4 mg/dl (8.4-10.2); Carbon Dioxide 28 mmol/L (22-30); Chloride 98 mmol/L (98-107); Glucose 116 mg/dl (70-99); Potassium 3.7 mmol/L (3.5-5.1); Sodium 133 mmol/L (135-145); Total Protein 6.9 g/dl (6.3-8.2); eGFR > 60.00
== END 2025-01-06 14:02 | disposition home or self-care (01) ==
LOC: OID 11:28
PROVIDERS: ATTENDING PHYSICIAN Internal Medicine Hematology & Oncology; FAMILY PHYSICIAN Family Medicine
DX: C50.312 Malignant neoplasm of lower-inner quadrant of left female breast (principal); C77.3 Secondary and unspecified malignant neoplasm of axilla and upper limb lymph nodes; G89.3 Neoplasm related pain (acute) (chronic); C7A.8 Other malignant neuroendocrine tumors; C7A.1 Malignant poorly differentiated neuroendocrine tumors
CPT/HCPCS: 36591; 80053; 84439; 84443; 85025; 96523

== ENCOUNTER → 2025-01-28 12:59 | Outpatient (REF) | payer OTHER, SELFPAY ==
[2025-01-28 13:24] LABS: HCG, Urine Qualitative Screen Negative
== END ==
LOC: REG 12:59
PROVIDERS: ATTENDING PHYSICIAN Radiology Radiation Oncology; FAMILY PHYSICIAN Internal Medicine Hematology & Oncology
DX: C79.51 Secondary malignant neoplasm of bone (principal)
CPT/HCPCS: 81025

== ENCOUNTER 2025-02-10 08:24 | Outpatient (RCR) | payer OTHER, SELFPAY ==
[2025-01-12 07:45] VITALS: BP 114/75
[2025-01-12 08:36] LABS: Hematocrit 29.0 % (37.0-47.0); Hemoglobin 9.4 g/dL (12.0-16.0); Mean Corp Hgb Conc. 32.4 g/dL (33.0-37.0); Mean Corpuscular Volume 106.2 fL (81.0-99.0); Platelet Count 185 10^3/uL (130-400); Red Cell Dist. Width 14.7 % (11.5-14.5)
[2025-01-12 09:42] LABS: ALT (SGPT) 19 U/L (0-35); AST (SGOT) 34 U/L (14-36); Albumin 4.2 g/dl (3.5-5.0); Alkaline Phosphatase 356 U/L (38-126); Blood Urea Nitrogen 12 mg/dl (7-17); Calcium 9.6 mg/dl (8.4-10.2); Carbon Dioxide 28 mmol/L (22-30); Chloride 102 mmol/L (98-107); Glucose 94 mg/dl (70-99); Potassium 3.8 mmol/L (3.5-5.1); Sodium 137 mmol/L (135-145); Total Protein 6.9 g/dl (6.3-8.2); eGFR > 60.00
[2025-01-19 14:00] VITALS: BP 115/82
[2025-01-19 14:31] LABS: Hematocrit 28.0 % (37.0-47.0); Hemoglobin 9.1 g/dL (12.0-16.0); Mean Corp Hgb Conc. 32.5 g/dL (33.0-37.0); Mean Corpuscular Volume 102.9 fL (81.0-99.0); Nucleated Red Blood Cells % 0 %; Platelet Count 201 10^3/uL (130-400); Red Cell Dist. Width 15.2 % (11.5-14.5)
[2025-01-19 14:48] LABS: ALT (SGPT) 17 U/L (0-35); AST (SGOT) 62 U/L (14-36); Albumin 4.5 g/dl (3.5-5.0); Alkaline Phosphatase 354 U/L (38-126); Blood Urea Nitrogen 11 mg/dl (7-17); Calcium 9.8 mg/dl (8.4-10.2); Carbon Dioxide 28 mmol/L (22-30); Chloride 98 mmol/L (98-107); Glucose 83 mg/dl (70-99); Potassium 4.0 mmol/L (3.5-5.1); Sodium 133 mmol/L (135-145); Total Protein 7.3 g/dl (6.3-8.2); eGFR > 60.00
[2025-01-19 15:18] LABS: TSH 33.00 uIU/ml (0.47-4.68)
[2025-02-02 09:45] VITALS: BP 113/59
[2025-02-02 09:57] LABS: Hematocrit 26.4 % (37.0-47.0); Hemoglobin 8.7 g/dL (12.0-16.0); Mean Corp Hgb Conc. 33.0 g/dL (33.0-37.0); Mean Corpuscular Volume 106.9 fL (81.0-99.0); Platelet Count 158 10^3/uL (130-400); Red Cell Dist. Width 15.7 % (11.5-14.5)
[2025-02-02 11:06] LABS: ALT (SGPT) 20 U/L (0-35); AST (SGOT) 32 U/L (14-36); Albumin 4.2 g/dl (3.5-5.0); Alkaline Phosphatase 309 U/L (38-126); Blood Urea Nitrogen 19 mg/dl (7-17); Calcium 9.7 mg/dl (8.4-10.2); Carbon Dioxide 27 mmol/L (22-30); Chloride 102 mmol/L (98-107); Glucose 73 mg/dl (70-99); Potassium 4.2 mmol/L (3.5-5.1); Sodium 136 mmol/L (135-145); Total Protein 6.8 g/dl (6.3-8.2); eGFR > 60.00
[2025-02-10 08:45] VITALS: BP 114/71
[2025-02-10 09:04] LABS: Hematocrit 28.1 % (37.0-47.0); Hemoglobin 9.0 g/dL (12.0-16.0); Mean Corp Hgb Conc. 32.0 g/dL (33.0-37.0); Mean Corpuscular Volume 110.2 fL (81.0-99.0); Platelet Count 187 10^3/uL (130-400); Red Cell Dist. Width 16.8 % (11.5-14.5)
[2025-02-10 09:31] LABS: ALT (SGPT) 68 U/L (0-35); AST (SGOT) 52 U/L (14-36); Albumin 4.2 g/dl (3.5-5.0); Alkaline Phosphatase 291 U/L (38-126); Blood Urea Nitrogen 21 mg/dl (7-17); Calcium 9.3 mg/dl (8.4-10.2); Carbon Dioxide 26 mmol/L (22-30); Chloride 104 mmol/L (98-107); Glucose 82 mg/dl (70-99); Potassium 4.3 mmol/L (3.5-5.1); Sodium 135 mmol/L (135-145); Total Protein 6.9 g/dl (6.3-8.2); eGFR > 60.00
== END 2025-02-11 09:31 | disposition home or self-care (01) ==
LOC: OID 08:24
PROVIDERS: ATTENDING PHYSICIAN Internal Medicine Hematology & Oncology; FAMILY PHYSICIAN Family Medicine
DX: C50.312 Malignant neoplasm of lower-inner quadrant of left female breast (principal); C77.3 Secondary and unspecified malignant neoplasm of axilla and upper limb lymph nodes; G89.3 Neoplasm related pain (acute) (chronic); C7A.8 Other malignant neuroendocrine tumors; C79.51 Secondary malignant neoplasm of bone; C78.7 Secondary malignant neoplasm of liver and intrahepatic bile duct; C7A.1 Malignant poorly differentiated neuroendocrine tumors
CPT/HCPCS: 36591; 80053; 84439; 84443; 85025; 96523